=== PATIENT | female | born 1925 | race Caucasian/White ===

== ENCOUNTER 2016-08-11 07:17 | Inpatient (IN) | payer MEDICARE ==
[~2016-08-11] VITALS: Ht 165.1 cm; Wt 56.2 kg
[2016-08-11] VITALS (29 sets, daily range): BP systolic 76–181; BP diastolic 45–94; PULSE 16–112; RESP 16–40; TEMP 98.2–98.9; O2SAT 81–100
[~2016-08-11 07:17] MED LIST: ALEN35TA24 OR; ATOR20TA42 PO; CALC-187 PO; ERGO50000 PO; HYDR7.5T32 PO; IBUP-232 PO; LEVAQUIN; PRIL20CA PO; TAB-TAB PO; TAPA10TA2 PO
[2016-08-11] MEDS ORDERED: PROPOFOL 1000 MG/100 ML INJ 100 ML ONE (07:20)
[2016-08-11] MEDS ORDERED: ETOMIDATE 40 MG/20 ML VIAL ONE (07:20)
[2016-08-11] MEDS ORDERED: MIDAZOLAM HCL 2 MG/2 ML VIAL IV PUSH ONE (07:45)
[2016-08-11] MEDS ORDERED: ETOMIDATE 20 MG/10 ML VIAL IV PUSH ONE ×2 (07:45→08:00)
[2016-08-11] MEDS ORDERED: SUCCINYLCHOLINE CHLORIDE 200 MG/10 ML VIAL IV PUSH ONE (07:45)
[2016-08-11 07:52] LABS: AUTOMATED NEUTROPHIL # 12.9 TH/MM3 (1.8-7.7); BASOPHIL # 0.1 TH/MM3 (0-0.2); BASOPHIL % 0.6 % (0.0-2.0); EOSINOPHIL # 0.4 TH/MM3 (0-0.4); EOSINOPHIL % 2.3 % (0.0-4.0); HEMATOCRIT 44.9 % (35.0-46.0); HEMO FLAGS DIFF FINAL; LYMPH % 24.2 % (9.0-44.0); LYMPHOCYTE # 4.6 TH/MM3 (1.0-4.8); MEAN CELL VOLUME 86.2 FL (80.0-100.0); MEAN CORPUSCULAR HEMOGLOBIN 28.4 PG (27.0-34.0); MONO % 4.5 % (0.0-8.0); NEUT % 68.4 % (16.0-70.0); PLATELET COUNT 370 TH/MM3 (150-450); RED BLOOD COUNT 5.21 MIL/MM3 (4.00-5.30); RED CELL DISTRIBUTION WIDTH 14.6 % (11.6-17.2); WHITE BLOOD COUNT 18.8 TH/MM3 (4.0-11.0)
[2016-08-11 07:54] LABS: I-STAT POTASSIUM 4.1 MMOL/L (3.5-4.9)
[2016-08-11] MEDS ORDERED: METHI10 PO (08:00)
[2016-08-11] MEDS ORDERED: PRIL20CA9 PO (08:00)
[2016-08-11] MEDS ORDERED: NORC5TAB PO (08:00)
[2016-08-11] MEDS ORDERED: ERGO1CAP10 PO (08:00)
[2016-08-11] MEDS ORDERED: PIPERACIL-TAZO 4.5 GM PREMIX 100 ML IV ONE (08:00)
[2016-08-11] MEDS ORDERED: ATOR20TA15 PO (08:00)
[2016-08-11] MEDS ORDERED: CALCTAB70 PO (08:00)
[2016-08-11] MEDS ORDERED: FOSA70TA PO (08:00)
[2016-08-11] MEDS ORDERED: ROBA500T PO (08:00)
[2016-08-11] MEDS ORDERED: MULT1TAB84 PO (08:00)
[2016-08-11 08:02] LABS: BACTERIA, URINE MOD /hpf; BLOOD, URINE SMALL (NEG); GLUCOSE,URINE NEG (NEG); HYALINE CAST, URINE 10 /lpf (RARE); KETONE, URINE NEG (NEG); MUCUS URINE FEW /lpf (OCC); NITRITE,URINE NEG (NEG); PH, URINE 6.5 (5.0-8.5); SQUAMOUS EPITHELIAL CELL URINE 15 /hpf (0-5); URINE COLOR YELLOW (YELLW/STRAW)
[2016-08-11 08:03] LABS: COMMENT (UR) CULTURE INDICATED; CULTURE IF INDICATED CULTURE INDICATED
[2016-08-11 08:07] LABS: APTT (PATIENT) 22.6 SEC (24.3-30.1); PROTHROMBIN TIME - PATIENT 10.8 SEC (9.8-11.6)
[2016-08-11] MEDS: SODIUM CHLORIDE 0.9% FLUSH 5 ML FLUSH IVF PRN ×2 (08:08→09:30)
--- NOTE | 2016-08-11 08:11 | PD ---
HPI Chief Complaint: Respiratory Distress Time Seen by Provider: 07:34 Travel History International Travel<30 days: No Contact w/Intl Traveler<30days: No Traveled to known affect area: No History of Present Illness HPI 89-year-old female was brought in by EMS from the [facility] for respiratory distress. Patient was found by the [facility] staff this morning extremely short of breath. EMS upon their arrival put her on BiPAP and 65% oxygen and she was saturating 90%. When patient arrived in the ER she was poorly responsive and struggling to breathe. She was not a good historian by any means. History was mostly obtained through paramedics and from the paperwork sent from [facility]. As per the paramedics patient denied of any chest pain to the [facility] staff. She was given albuterol nebulizer at the sn[facility]. I was told by the paramedics that she was a full code. Patient was saturating in the low 80s on the BiPAP upon arrival. PFSH Past Medical History Narrative Medical List of her past medical history is reviewed from the nursing note. Arthritis: Yes Heart Rhythm Problems: No Cancer: No Cardiovascular Problems: Yes High Cholesterol: Yes Chest Pain: No Congestive Heart Failure: No COPD: Yes Cerebrovascular Accident: No Diabetes: No Diminished Hearing: No Endocrine: Yes Gastrointestinal Disorders: Yes GERD: Yes Genitourinary: No Hiatal Hernia: No Medical other: Yes (FALLS) Musculoskeletal: Yes (OSTEOPOROSIS, CHRONIC L KNEE PAIN, COMPRESSION FRACTURES) Neurologic: Yes Psychiatric: No Reproductive: No Respiratory: Yes Thyroid Disease: Yes Ulcer: No Menopausal: Yes : 2 Para: 2 Past Surgical History Abdominal Surgery: No Cardiac Surgery: No Eye Surgery: Yes (CATARACTS) Genitourinary Surgery: No Gynecologic Surgery: No Oral Surgery: No Thoracic Surgery: No Tonsillectomy: Yes Social History Alcohol Use: No Tobacco Use: Yes (1 PPD) Substance Use: No Allergies-Medications (Allergen,Severity, Reaction): Coded Allergies: No Known Allergies (Verified , 08/11/16) Comments No known drug allergies. Reported Meds & Prescriptions Reported Meds & Active Scripts Active Reported [place] (Hydrocodone-Acetaminophen) 5-325 mg Tab 1 Tab PO Q6HR PRN Vitamin D (Ergocalciferol) 50,000 Unit Cap 50,000 Units PO Q19UNSS Fosamax (Alendronate Sodium) 70 Mg Tab 70 Mg PO Q7D Atorvastatin (Atorvastatin Calcium) 20 Mg Tab 20 Mg PO HS Robaxin (Methocarbamol) 500 Mg Tab 500 Mg PO TID Calcium 600 + D (Calcium Carbonate-Vitamin D) 600-400 Mg-Unit Tab 1 Tab PO BID Multivitamin Adults (Multiple Vitamins W/ Minerals) 1 Tab 1 Tab PO DAILY Methimazole 10 Mg Tab 10 Mg PO DAILY Prilosec (Omeprazole) 20 Mg Cap 20 Mg PO DAILY Narrative Medication List of her home medications reviewed from the nursing note. Review of Systems Except as stated in HPI: all other systems reviewed are Neg Physical Exam Narrative GENERAL: Elderly, frail, poorly responsive, severe respiratory distress in extremis SKIN: Warm and dry. Pale HEAD: Atraumatic. Normocephalic. EYES: Pupils equal and round. No scleral icterus. No injection or drainage. ENT: No nasal bleeding or discharge. Mucous membranes pink and moist. NECK: Trachea midline. No JVD. CARDIOVASCULAR: Regular rate and rhythm. No murmur appreciated. RESPIRATORY: Use of accessory muscles for respiration, course crackles in bilateral lung curtis GASTROINTESTINAL: Abdomen soft, non-tender, nondistended. Hepatic and splenic margins not palpable. MUSCULOSKELETAL: No obvious deformities. No clubbing. No cyanosis. No edema. NEUROLOGICAL: Poorly responsive, eyes closed and nods or shakes her head upon asking questions. GCS of 10 PSYCHIATRIC: Anxious; insight and judgment normal. Data Data Last Documented VS Vital Signs Date Time Temp Pulse Resp B/P Pulse Ox O2 Delivery O2 Flow Rate FiO2 08/11/16 08:13 103 20 126/94 100 Ventilator 100 08/11/16 07:31 98.9 Orders Complete Blood Count With Diff (08/11/16 07:34) Comprehensive Metabolic Panel (08/11/16 07:34) Act Partial Throm Time (Ptt) (08/11/16 07:34) Prothrombin Time / Inr (Pt) (08/11/16 07:34) Magnesium (Mg) (08/11/16 07:34) Ckmb (Isoenzyme) Profile (08/11/16 07:34) Troponin I (08/11/16 07:34) Arterial Blood Gas (Abg) (08/11/16 07:34) Urinalysis - C+S If Indicated (08/11/16 07:34) Blood Culture (08/11/16 07:34) Iv Access Insert/Monitor (08/11/16 07:34) Electrocardiogram (08/11/16 07:34) Ecg Monitoring (08/11/16 07:34) Oximetry (08/11/16 07:34) Oxygen Administration (08/11/16 07:34) Chest, Single Ap (08/11/16 07:34) Sodium Chloride 0.9% Flush (Ns Flush) (08/11/16 07:45) Midazolam Inj (Versed Inj) (08/11/16 07:45) Lactic Acid (08/11/16 07:34) Sodium Chlor 0.9% 1000 Ml Inj (Ns 1000 M (08/11/16 07:34) I-Stat Profile (08/11/16 07:34) Urinary Catheter Insert/Apply (08/11/16 07:34) Ann-Gastric Tube Insert/Mon (08/11/16 07:34) Sputum Culture And Gram Stain (08/11/16 07:38) Succinylcholine Inj (Quelicin Inj) (08/11/16 07:45) Etomidate Inj (Amidate Inj) (08/11/16 07:45) I-Stat Creatinine (08/11/16 07:35) Thyroid Stimulating Hormone (08/11/16 07:55) Type And Screen (08/11/16 07:55) Piperacil-Tazo 4.5 Gm Premix (Zosyn 4.5 (08/11/16 08:00) Etomidate Inj (Amidate Inj) (08/11/16 08:00) Urine Culture (08/11/16 07:30) Admit Order (Ed Use Only) (08/11/16 08:42) Labs Laboratory Tests Test 08/11/16 08/11/16 08/11/16 07:30 07:35 08:25 Urine Color YELLOW Urine Turbidity CLOUDY Urine pH 6.5 Urine Specific [place] 1.016 Urine Protein 30 mg/dL Urine Glucose (UA) NEG mg/dL Urine Ketones NEG mg/dL Urine Occult Blood SMALL Urine Nitrite NEG Urine Bilirubin NEG Urine Urobilinogen LESS THAN 2.0 MG/DL Urine Leukocyte Esterase LARGE Urine RBC 56 /hpf Urine WBC /hpf Urine WBC Clumps MANY Urine Squamous Epithelial 15 /hpf Cells Urine Bacteria MOD /hpf Urine Hyaline Casts 10 /lpf Urine Mucus FEW /lpf Microscopic Urinalysis Comment CULTURE INDICATED Lactic Acid Level 2.1 mmol/L White Blood Count 18.8 TH/MM3 Red Blood Count 5.21 MIL/MM3 Hemoglobin 14.8 GM/DL Bedside Hemoglobin 15.0 G/DL Hematocrit 44.9 % Bedside Hematocrit 44.0 % Mean Corpuscular Volume 86.2 FL Mean Corpuscular Hemoglobin 28.4 PG Mean Corpuscular Hemoglobin 33.0 % Concent Red Cell Distribution Width 14.6 % Platelet Count 370 TH/MM3 Mean Platelet Volume 9.7 FL Neutrophils (%) (Auto) 68.4 % Lymphocytes (%) (Auto) 24.2 % Monocytes (%) (Auto) 4.5 % Eosinophils (%) (Auto) 2.3 % Basophils (%) (Auto) 0.6 % Neutrophils # (Auto) 12.9 TH/MM3 Lymphocytes # (Auto) 4.6 TH/MM3 Monocytes # (Auto) 0.9 TH/MM3 Eosinophils # (Auto) 0.4 TH/MM3 Basophils # (Auto) 0.1 TH/MM3 CBC Comment DIFF FINAL Differential Comment Prothrombin Time 10.8 SEC Prothromb Time International 1.0 RATIO Ratio Activated Partial 22.6 SEC Thromboplast Time Bedside Sodium 141 MMOL/L Sodium Level 142 MEQ/L Bedside Potassium 4.1 MMOL/L Potassium Level 4.1 MEQ/L Bedside Chloride 109 MMOL/L Chloride Level 109 MEQ/L Carbon Dioxide Level 23.5 MEQ/L Anion Gap 10 MEQ/L Bedside Blood Urea Nitrogen 21 MG/DL Blood Urea Nitrogen 17 MG/DL Creatinine 1.05 MG/DL Bedside Creatinine 0.9 MG/DL Estimat Glomerular Filtration 49 ML/MIN Rate Bedside Glucose 214 MG/DL Random Glucose 208 MG/DL Calcium Level 8.4 MG/DL Magnesium Level 2.1 MG/DL Total Bilirubin 1.0 MG/DL Aspartate Amino Transf 19 U/L (AST/SGOT) Alanine Aminotransferase 11 U/L (ALT/SGPT) Alkaline Phosphatase 76 U/L Total Creatine Kinase 92 U/L Troponin I 0.04 NG/ML Total Protein 6.8 GM/DL Albumin 3.4 GM/DL Thyroid Stimulating Hormone 1.250 uIU/ML 3rd Gen Blood Type O POSITIVE Antibody Screen NEGATIVE Blood Bank Comment Blood Gas Puncture Site RT FEMORAL Blood Gas Patient Temperature 98.6 Blood Gas HCO3 21 mmol/L Blood Gas Base Excess -3.8 mmol/L Blood Gas Oxygen Saturation 95 % Arterial Blood pH 7.36 Arterial Blood Partial 37 mmHg Pressure CO2 Arterial Blood Partial 206 mmHG Pressure O2 Arterial Blood Oxygen Content 18.7 Vol % Arterial Blood 2.2 % Carboxyhemoglobin Arterial Blood Methemoglobin 1.9 % Blood Gas Hemoglobin 13.7 G/DL Oxygen Delivery Device VENTILATOR Blood Gas Ventilator Setting AC16/500/5PEEP Blood Gas Inspired Oxygen 100 % MDM Medical Decision Making Medical Screen Exam Complete: Yes Emergency Medical Condition: Yes Medical Record Reviewed: Yes Interpretation(s) Twelve-lead EKG was reviewed by me. Questionable atrial fibrillation, significant baseline motion artifact, tachycardia, left bundle branch block, normal axis, unchanged from old EKG from 2012. Heart rate of 110 bpm. Differential Diagnosis Pulmonary edema, congestive heart failure, pneumonia, aspiration pneumonia Narrative Course 8:08 AM patient required to be intubated upon arrival to improve her oxygenation and ventilation. This was done successfully. Currently her heart rate has come down to the 80s. She has an oral gastric tube and Leong catheter. Portable chest x-ray shows the tubes to be in good position and an infiltrate/atelectasis in the right lower lobe which makes me think that this could be aspiration pneumonia. There was copious amount of tannish colored mucus from the ETT once patient was intubated. Awaiting for blood test result and the blood gas. CBC is back and shows leukocytosis based on which I started her on Zosyn and vancomycin. Patient will require to be admitted in the unit. Critical Care Narrative Aggregate critical care time was 40 minutes. Time to perform other separately billable procedures was not included in the critical care time. My time did not include minutes spent treating any other patients simultaneously or on activities that did not directly contribute to the patient's treatment. The services I provided to this patient were to treat and/or prevent clinically significant deterioration that could result in: Respiratory earlier, sepsis, vent management I provided critical care services requiring my management, as noted below: Chart data review, documentation time, medication orders and management, vital sign assessments/reviewing monitor data, ordering and reviewing lab tests, ordering and interpreting/reviewing x-rays and diagnostic studies, care of the patient and discussion of the patient with the admitting physicians. Procedures Procedure Narrative After the risks and benefits were discussed the following procedure was performed: INTUBATION: The patient was put in optimal position for the procedure. Rapid sequence intubation was initiated by me using 20 milligrams of etomidate IV and 100 milligrams of succinylcholine IV. The patient was intubated with a 7.5 cuffed endotracheal tube. Tube placement was confirmed by visualization of the tube and balloon passing through the cords, capnometry and subsequent chest x-ray. Breath sounds were equal and well aerated bilaterally postintubation. No breath sounds over stomach. Patient tolerated procedure well. CENTRAL VENOUS LINE: The site was prepped with Betadine and sterilely draped. It was infiltrated with 1% lidocaine plain. The deep vein was cannulated using normal Seldinger technique. A triple lumen central line was placed in the right subclavian site and secured with simple interrupted suture. The site was sterilely dressed. The patient tolerated the procedure well. Needed to be detracted since it was crossing the midline and going into the left subclavian. EKG Prior to Arrival: No Diagnosis Primary Impression: Respiratory failure Qualified Code: J96.01 - Acute respiratory failure with hypoxia Additional Impressions: Aspiration pneumonia Qualified Code: J69.0 - Aspiration pneumonia of right lower lobe, unspecified aspiration pneumonia type Sepsis Qualified Code: A41.9 - Sepsis, due to unspecified organism UTI (urinary tract infection) Qualified Code: N39.0 - Urinary tract infection without hematuria, site unspecified Admitting Information Admitting Physician Requests: Valery Burroughs MD Aug 11, 2016 08:11
[2016-08-11 08:22] LABS: I-STAT SODIUM 141 MMOL/L (138-146)
[2016-08-11 08:23] LABS: ALKALINE PHOSPHATASE 76 U/L (45-117); ALT (GPT) 11 U/L (10-53); ANION GAP 10 MEQ/L (5-15); AST (GOT) 19 U/L (15-37); BICARBONATE 23.5 MEQ/L (21.0-32.0); CHLORIDE 109 MEQ/L (98-107); GLOMERULAR FILTRATION RATE 49 ML/MIN (>89); MAGNESIUM 2.1 MG/DL (1.5-2.5); POTASSIUM 4.1 MEQ/L (3.5-5.1); SODIUM (NA) 142 MEQ/L (136-145)
[2016-08-11 08:26] LABS: BLOOD UREA NITROGEN 17 MG/DL (7-18); CREATINE KINASE 92 U/L (26-192)
[2016-08-11 08:29] LABS: BLOOD GAS BASE EXCESS -3.8 mmol/L (-2-2); BLOOD GAS CARBOXYHEMOGLOBIN 2.2 % (0-4); BLOOD GAS HCO3 21 mmol/L (22-26); BLOOD GAS METHEMOGLOBIN 1.9 % (0-2); BLOOD GAS O2 HGB SATURATION 95 % (90-100); BLOOD GAS OXYGEN CONTENT 18.7 Vol % (12.0-20.0); BLOOD GAS PCO2 37 mmHg (38-42); BLOOD GAS PO2 206 mmHG (61-120); BLOOD GAS TOTAL HGB 13.7 G/DL (12.0-16.0); TEMP CORR TO 98.6
[2016-08-11 08:30] LABS: CRITICAL VALUE NO; DRAW SITE RT FEMORAL; FIO2 100 %; NUMBER OF ARTERIAL PUNCTURES 1; OXYGEN DEVICE VENTILATOR; STAT YES; VENT SETTINGS AC16/500/5PEEP
--- NOTE | 2016-08-11 08:31 | RADRPT ---
EXAM DATE/TIME: 08/11/2016 08:01 [facility] COMPARISON: CT ABDOMEN & PELVIS W/O CONTRAST, May 06, 2012, 22:11. INDICATIONS : Short of breath. MEDICAL HISTORY : Diabetes SURGICAL HISTORY : Unobtainable. ENCOUNTER: Initial ACUITY: 1 day PAIN SCORE: Non-responsive. LOCATION: Bilateral chest FINDINGS: Single portable supine view of the chest is reviewed with prior CT. There is an endotracheal tube ove rlying the midline trachea with the tip approximately 2 cm above the level the anu. There is an or ogastric tube identified with the tip extending beyond the imaged portion of the film. The heart size is mildly enlarged. There is retrocardiac opacity and hazy increased density within th e right lung base. There is mild cephalization of pulmonary vasculature. The osseous structures are u nremarkable. CONCLUSION: Lines and tubes appear appropriate. Bibasilar airspace consolidation and likely pleural effusion.. Linae Gacria MD on August 11, 2016 at 8:22 Board Certified Radiologist. This report was verified electronically.
--- NOTE | 2016-08-11 09:25 | HHI.HP ---
HPI Service Critical Care Medicine Primary Care Physician Duane Black, PhD, MD Admission Diagnosis respiratory failure, sepsis, aspiration pneumonia, UTI Diagnosis: Travel History International Travel<30 Days: No Contact w/Intl Traveler <30 Da: No Traveled to Known Affected Are: No History of Present Illness 89-year-old female was brought in by EMS from rehabilitation facility for acute respiratory distress. The patient was placed on BiPAP by EMS personnel, with resultant O2 sat 90%. On arrival to the ED, the patient appeared to have decreased responsiveness and was dyspneic. O2 saturation on BiPAP was in the 80s, the patient was emergently intubated in the ED by Dr. Dougherty. Laboratory and imaging studies were obtained, chest x-ray showed right lower lobe consolidation indicative of possible aspiration. Critical care medicine is consulted for management. [facility] Past Medical History Narrative Medical List of her past medical history is reviewed from the nursing note. Arthritis: Yes Heart Rhythm Problems: No Cancer: No Cardiovascular Problems: Yes High Cholesterol: Yes Chest Pain: No Congestive Heart Failure: No COPD: Yes Cerebrovascular Accident: No Diabetes: No Diminished Hearing: No Endocrine: Yes Gastrointestinal Disorders: Yes GERD: Yes Genitourinary: No Hiatal Hernia: No Medical other: Yes (FALLS) Musculoskeletal: Yes (OSTEOPOROSIS, CHRONIC L KNEE PAIN, COMPRESSION FRACTURES) Neurologic: Yes Psychiatric: No Reproductive: No Respiratory: Yes Thyroid Disease: Yes Ulcer: No Menopausal: Yes : 2 Para: 2 Past Surgical History Abdominal Surgery: No Cardiac Surgery: No Eye Surgery: Yes (CATARACTS) Genitourinary Surgery: No Gynecologic Surgery: No Oral Surgery: No Thoracic Surgery: No Tonsillectomy: Yes Social History Alcohol Use: No Tobacco Use: Yes (1 PPD) Substance Use: No Allergies-Medications (Allergen,Severity, Reaction): Coded Allergies: No Known Allergies (Verified , 08/11/16) Comments No known drug allergies. Reported Meds & Prescriptions Reported Meds & Active Scripts Active Reported [place] (Hydrocodone-Acetaminophen) 5-325 mg Tab 1 Tab PO Q6HR PRN Vitamin D (Ergocalciferol) 50,000 Unit Cap 50,000 Units PO Q84CONZ Fosamax (Alendronate Sodium) 70 Mg Tab 70 Mg PO Q7D Atorvastatin (Atorvastatin Calcium) 20 Mg Tab 20 Mg PO HS Robaxin (Methocarbamol) 500 Mg Tab 500 Mg PO TID Calcium 600 + D (Calcium Carbonate-Vitamin D) 600-400 Mg-Unit Tab 1 Tab PO BID Multivitamin Adults (Multiple Vitamins W/ Minerals) 1 Tab 1 Tab PO DAILY Methimazole 10 Mg Tab 10 Mg PO DAILY Prilosec (Omeprazole) 20 Mg Cap 20 Mg PO DAILY Narrative Medication List of her home medications reviewed from the nursing note. Review of Systems Except as stated in HPI: all other systems reviewed are Neg Physical Exam Vital Signs Vital Signs Date Time Temp Pulse Resp B/P Pulse Ox O2 Delivery O2 Flow Rate FiO2 08/11/16 08:13 103 20 126/94 100 Ventilator 100 08/11/16 08:03 100 22 106/49 96 Ventilator 08/11/16 07:31 98.9 112 18 115/65 100 Ventilator 08/11/16 07:30 95 100 08/11/16 07:28 100 08/11/16 07:24 107 40 181/85 81 08/11/16 07:20 CPAP 08/11/16 07:20 40 08/11/16 07:20 81 CPAP Physical Exam GENERAL: Critically ill-appearing well-nourished ,well-developed elderly female intubated and sedated on propofol infusion SKIN: Warm and dry. HEAD: Atraumatic. Normocephalic. EYES: Pupils equal and round. No scleral icterus. No injection or drainage. ENT: No nasal bleeding or discharge. Mucous membranes pink and moist. NECK: Trachea midline. No JVD. CARDIOVASCULAR: Normal rate, regular rhythm. RESPIRATORY: Clear to auscultation. Breath sounds equal bilaterally. GASTROINTESTINAL: Abdomen soft protuberant, non-tender, nondistended. No guarding. MUSCULOSKELETAL: Extremities without clubbing, cyanosis, or edema. No obvious deformities. NEUROLOGICAL: Sedated, propofol infusion RASS -2. Laboratory Laboratory Tests Test 08/11/16 08/11/16 08/11/16 07:30 07:35 08:25 Urine Color YELLOW Urine Turbidity CLOUDY Urine pH 6.5 Urine Specific [place] 1.016 Urine Protein 30 Urine Glucose (UA) NEG Urine Ketones NEG Urine Occult Blood SMALL Urine Nitrite NEG Urine Bilirubin NEG Urine Urobilinogen LESS THAN 2.0 Urine Leukocyte Esterase LARGE Urine RBC 56 Urine WBC Urine WBC Clumps MANY Urine Squamous Epithelial 15 Cells Urine Bacteria MOD Urine Hyaline Casts 10 Urine Mucus FEW Microscopic Urinalysis Comment CULTURE INDICATED Lactic Acid Level 2.1 White Blood Count 18.8 Red Blood Count 5.21 Hemoglobin 14.8 Bedside Hemoglobin 15.0 Hematocrit 44.9 Bedside Hematocrit 44.0 Mean Corpuscular Volume 86.2 Mean Corpuscular Hemoglobin 28.4 Mean Corpuscular Hemoglobin 33.0 Concent Red Cell Distribution Width 14.6 Platelet Count 370 Mean Platelet Volume 9.7 Neutrophils (%) (Auto) 68.4 Lymphocytes (%) (Auto) 24.2 Monocytes (%) (Auto) 4.5 Eosinophils (%) (Auto) 2.3 Basophils (%) (Auto) 0.6 Neutrophils # (Auto) 12.9 Lymphocytes # (Auto) 4.6 Monocytes # (Auto) 0.9 Eosinophils # (Auto) 0.4 Basophils # (Auto) 0.1 CBC Comment DIFF FINAL Differential Comment Prothrombin Time 10.8 Prothromb Time International 1.0 Ratio Activated Partial 22.6 Thromboplast Time Sodium Level 142 Bedside Potassium 4.1 Potassium Level 4.1 Bedside Chloride 109 Chloride Level 109 Carbon Dioxide Level 23.5 Anion Gap 10 Bedside Blood Urea Nitrogen 21 Blood Urea Nitrogen 17 Creatinine 1.05 Bedside Creatinine 0.9 Estimat Glomerular Filtration 49 Rate Bedside Glucose 214 Random Glucose 208 Calcium Level 8.4 Magnesium Level 2.1 Total Bilirubin 1.0 Aspartate Amino Transf 19 (AST/SGOT) Alanine Aminotransferase 11 (ALT/SGPT) Alkaline Phosphatase 76 Total Creatine Kinase 92 Troponin I 0.04 Total Protein 6.8 Albumin 3.4 Thyroid Stimulating Hormone 1.250 3rd Gen Blood Type O POSITIVE Antibody Screen NEGATIVE Blood Bank Comment Blood Gas Puncture Site RT FEMORAL Blood Gas Patient Temperature 98.6 Blood Gas HCO3 21 Blood Gas Base Excess -3.8 Blood Gas Oxygen Saturation 95 Arterial Blood pH 7.36 Arterial Blood Partial 37 Pressure CO2 Arterial Blood Partial 206 Pressure O2 Arterial Blood Oxygen Content 18.7 Arterial Blood 2.2 Carboxyhemoglobin Arterial Blood Methemoglobin 1.9 Blood Gas Hemoglobin 13.7 Oxygen Delivery Device VENTILATOR Blood Gas Ventilator Setting AC16/500/5PEEP Blood Gas Inspired Oxygen 100 Date/Time Procedure Status Source Growth 08/11/16 07:40 Aerobic Blood Culture Received Blood Peripheral Pending 08/11/16 07:40 Anaerobic Blood Culture Received Blood Peripheral Pending 08/11/16 07:30 Urine Culture Received Urine Clean Catch Pending Result Diagram: 08/11/1635 08/11/16 0735 Imaging Last Impressions Chest X-Ray 08/11/16 0734 Signed Impressions: Service Date/Time: Thursday, August 11, 2016 08:01 - CONCLUSION: Lines and tubes appear appropriate. Bibasilar airspace consolidation and likely pleural effusion.. Liane Garcia MD Septic Shock Reassessment Heart: Regular rate and rhythm Lungs: Clear Skin: Warm Peripheral Pulses: Bounding Right Radial Bounding Left Radial Bounding Right Dorsalis Pedis Bounding Left Dorsalis Pedis Capillary Refill: Brisk Assessment and Plan Assessment and Plan This is a 89 year old female residing temporarily in a rehabilitation facility secondary to a right wrist injury, that presented acute hypoxic respiratory failure requiring intubation.. Chest x-ray suggestive of possible aspiration. The patient was noted to have an elevation in WBC and slight increase in lactate , and possible UTI. The patient is critically ill with the guarded prognosis. Problem list: Acute hypoxic respiratory failure Aspiration pneumonia UTI Neurologic: -GCS 15, prior to intubation -Maintain RASS -2 -Fentanyl infusion for sedation -Sedation holiday per ICU protocol Respiratory: Acute hypoxic respiratory failure Pleural effusion -Emergently intubated. Maintain O2 sats greater than 92% -Mechanical ventilation 16/500/5/0.75, wean FiO2 -DuoNeb scheduled every 6 hours, and every 2 hours when necessary -Chest x-ray08/11-opacity right lung base, pleural effusion Cardiovascular: Hypercholesterolemia -No acute issues -Maintain MAP > 65 mmHg -Normotensive,SBP 120's-130's -Continue atorvastatin Renal: Renal insufficiency -Creatinine 1.05, monitor BMP -Insert Leong -- Strict I/Os FEN/GI: GERD -Bolused 1 L normal saline IV fluids in ED -IV fluids 0.9 normal saline at 42 cc/hour -Place OGT - Continue Multivitamin -Zofran for nausea -Protonix GI prophylaxis Heme/ID: Possible UTI Aspiration pneumonia -Obtain blood urine and sputum cultures -Begin empiric antibiotics Zosyn, azithromycin, Flagyl -UA-moderate bacteria, large leukocyte esterase -Lactate 2.1 Endocrine: Hyperthyroidism Hyperglycemia -Patient home med Methimazole, will continue -Initial glucose 214, blood glucose monitoring every 6 hours per ICU protocol -TSH level 1.250 -- SSI -low-dose regimen MSK: Osteoporosis Right wrist fracture -Patient is status post right wrist fracture 07/29/16, and was placed in rehabilitation facility -PT evaluation and treat-functional maintenance -Continue calcium/vitamin D home med Prophylaxis: GI Prophylaxis Protonix 40 mg/day DVT Prophylaxis -- SCDs Heparin SQ BID Lines: Peripheral IV x 2. Central line if indicated Dispo: This patient remains critically ill with one or more organ systems which are or may become a threat to life. I have spent in excess of 54 minutes discontinuously in the care and management of this patient. This time is exclusive of procedures, and includes, but is not limited to, evaluation of the patient, review of the medical record, discussions with family, consultants, nursing staff, or respiratory therapy, and documentation in the medical record. Code Status Full code Discussed Condition With Daughter and ED RN at bedside Karla Tejeda MD Aug 11, 2016 09:25
[2016-08-11] MEDS ORDERED: POTASSIUM PHOSPHATE MONOBASIC 500 MG TAB PO/TUBE PRN (09:30)
[2016-08-11] MEDS ORDERED: MAGNESIUM SULFATE INJ 2 GM in SODIUM CHLORIDE 0.9% INJ 96 ML IV PRN (09:30)
[2016-08-11] MEDS ORDERED: CHLORHEXIDINE GLUCONATE 2 % 1 PACK (2 CLOTHS) TOP PRN (09:30)
[2016-08-11] MEDS ORDERED: SENNOSIDES 8.6 MG TAB PO PRN (09:30)
[2016-08-11] MEDS ORDERED: POTASSIUM CHLOR 40 MEQ PREMIX 100 ML IV PRN (09:30)
[2016-08-11] MEDS ORDERED: GLUCAGON 1 MG/ML VIAL OTHER PRN (09:30)
[2016-08-11] MEDS ORDERED: MAGNESIUM OXIDE 400 MG TAB PO PRN (09:30)
[2016-08-11] MEDS ORDERED: BISACODYL 10 MG SUPP RECTAL PRN (09:30)
[2016-08-11] MEDS ORDERED: ACETAMINOPHEN 325 MG TAB PO PRN (09:30)
[2016-08-11] MEDS ORDERED: MAGNESIUM SULFATE INJ 4 GM in SODIUM CHLORIDE 0.9% INJ 92 ML IV PRN (09:30)
[2016-08-11] MEDS ORDERED: POTASSIUM PHOSPHATE INJ 30 MMOL in SODIUM CHLOR 0.9% 250 ML INJ 250 ML IV PRN (09:30)
[2016-08-11] MEDS ORDERED: POTASSIUM CHLOR 20 MEQ PREMIX 100 ML IV PRN ×2 (09:30)
[2016-08-11] MEDS ORDERED: DEXTROSE 50% IN WATER 50 ML VIAL(D50) IV PUSH PRN (09:30)
[2016-08-11] MEDS ORDERED: fentaNYL DRIP 250 ML IV SCH (09:30)
[2016-08-11] MEDS ORDERED: POTASSIUM CL 40 MEQ/30 ML LIQ UDC PO/TUBE PRN ×2 (09:30)
[2016-08-11] MEDS ORDERED: RESP: ALBUTEROL 2.5 MG/IPRATROPIUM 0.5 MG NEB (PRN) INH (09:30)
[2016-08-11] MEDS ORDERED: ONDANSETRON HCL 4 MG/2 ML VIAL IV PRN (09:30)
[2016-08-11] MEDS: SODIUM CHLOR 0.9% 1000 ML INJ 1,000 ML IV SCH ×3 (09:30→17:34)
[2016-08-11] MEDS ORDERED: POTASSIUM PHOSPHATE MONOBASIC 500 MG TAB PO PRN (09:30)
[2016-08-11] MEDS ORDERED: SODIUM PHOSPHATE INJ 30 MMOL in SODIUM CHLOR 0.9% 250 ML INJ 240 ML IV PRN (09:30)
[2016-08-11] MEDS ORDERED: MISCELLANEOUS NURSING INFORMATION XX SCH (09:30)
[2016-08-11] MEDS ORDERED: PIPERACIL-TAZO 4.5 GM PREMIX 100 ML IV SCH (11:00)
[2016-08-11] MEDS: metroNIDAZOLE 500 MG INJ 100 ML IV SCH ×2 (11:10→17:39)
[2016-08-11] MEDS: INSULIN ASPART SUPPLEMENTAL SCALE SQ SCH ×3 (11:13→21:00)
[2016-08-11] MEDS: RESP: ALBUTEROL 2.5 MG/IPRATROPIUM 0.5 MG NEB (SCH) INH ×3 (11:14→20:59)
[2016-08-11] MEDS ORDERED: TERBUTALINE INJ 1 MG/ML AMP SQ PRN (11:45)
--- NOTE | 2016-08-11 12:36 | RADRPT ---
EXAM DATE/TIME: 08/11/2016 12:09 [facility] COMPARISON: CHEST SINGLE AP, May 06, 2012, 19:23. CHEST SINGLE AP, August 11, 2016, 8:01. INDICATIONS: Unresponsive, Right side central line placement. MEDICAL HISTORY: Unresponsive SURGICAL HISTORY: Unresponsive ENCOUNTER: Initial ACUITY: 1 day PAIN SCORE: Non-responsive. LOCATION: Bilateral chest FINDINGS: The endotracheal tube has its tip 3 cm above the anu. The nasogastric tube has its tip below the diaphragm. A right subclavian central line crosses midline and has its tip in the left subclavian ve in. There is no pneumothorax. The heart is mildly prominent. Bilateral pulmonary infiltrates are w orse in appearance compared to the previous examination consistent with worsening pulmonary vascular congestion versus pneumonia. Clinical correlation is recommended. Degenerative changes are noted th roughout the thoracic spine. There is a sclerotic focus within the right humeral head which is stabl e and likely benign. CONCLUSION: 1. Right subclavian central line crosses midline and has its tip in the left subclavian vein. 2. Worsening bilateral pulmonary infiltrates consistent with worsening pulmonary edema versus pneumo gab. 3. Mild cardiomegaly. 4. No pneumothorax. 5. Degenerative changes throughout the thoracic spine. Lito Babb MD on August 11, 2016 at 12:26 Board Certified Radiologist. This report was verified electronically.
[2016-08-11] MEDS ORDERED: PHENYLEPHRINE INJ 40 MG in DEXTROSE 5% IN WATE 500 ML INJ 496 ML IV SCH ×2 (12:45)
[2016-08-11] MEDS: PROPOFOL 1000 MG/100 ML INJ 100 ML IV SCH ×2 (12:48→21:09)
--- NOTE | 2016-08-11 12:53 | RADRPT ---
EXAM DATE/TIME: 08/11/2016 12:31 [facility] COMPARISON: CHEST SINGLE AP, August 11, 2016, 8:01. CHEST SINGLE AP, May 06, 2012, 19:23. CHEST SINGLE AP, August 11, 2016, 12:09. INDICATIONS : Reposition right side centreal line. MEDICAL HISTORY : Unresponsive SURGICAL HISTORY : Unresponsive ENCOUNTER: Subsequent ACUITY: 1 day PAIN SCORE: Non-responsive. LOCATION: Right chest FINDINGS: There is a right-sided central line with the tip crossing midline and extending superiorly to the lef t. Recommend retraction approximately 5 cm. Endotracheal tube seen in the midline approximately 4 cm above the level of the anu. Gastric tube seen extending beyond the imaged portion of the exam. Heart size appears mildly enlarged. There is hazy increased opacity of the lungs bilaterally concerni ng for atelectasis versus possible pleural effusion. CONCLUSION: Limited central line which is seen to cross midline and extending to the left angled superiorly. Esau mmend retraction by approximately 5 cm. The ventricular tube appears appropriately positioned. Bilate ral atelectasis versus small pleural effusions.. Liane Garcia MD on August 11, 2016 at 12:49 Board Certified Radiologist. This report was verified electronically.
--- NOTE | 2016-08-11 14:08 | EKG ---
Date Performed: 08/11/2016 Time Performed: 07:46:40 PTAGE: 89 years EKG: SINUS TACHYCARDIA WITH OCCASIONAL SUPRAVENTRICULAR PREMATURE COMPLEXES LEFT BUNDLE BRANCH B LOCK ABNORMAL ECG PREVIOUS TRACING : 08/11/2016 07.46 Since previous tracing, no significant change noted DOCTOR: Lawson Chowdhury Interpretating Date/Time 08/11/2016 14:00:28
[2016-08-11] MEDS: AZITHROMYCIN INJ 500 MG in SODIUM CHLOR 0.9% 250 ML INJ 250 ML IV SCH (14:15)
[2016-08-11] MEDS: HEPARIN SODIUM - SQ 10,000 UNITS/ML VIAL SQ SCH ×2 (14:15→23:15)
[2016-08-11] MEDS: DOCUSATE SODIUM 100 MG/10 ML UDC G-TUBE SCH ×2 (15:06→21:10)
[2016-08-11] MEDS: ARTIFICIAL TEARS OPTH SOLN 15 ML BTL EACH EYE SCH ×2 (15:07→17:40)
[2016-08-11] MEDS: PIPERACIL-TAZO 3.375 GM PREMIX 50 ML IV SCH ×2 (15:36→21:09)
[2016-08-11] MEDS: CHLORHEXIDINE 0.12% (ORAL KIT) 15 ML CUP MT SCH (21:10)
[2016-08-11] MEDS: ATORVASTATIN 20 MG TAB PO SCH (21:10)
[2016-08-11] MEDS: CALCIUM/VITAMIN D 250 MG/125 U TAB PO SCH (21:10)
[2016-08-11] MEDS: SODIUM CHLORIDE 0.9% FLUSH 5 ML FLUSH IV FLUSH SCH (21:10)
[2016-08-12] VITALS (21 sets, daily range): BP systolic 91–129; BP diastolic 50–60; PULSE 65–99; RESP 16–17; TEMP 97.6–99.4; O2SAT 98–100
[2016-08-12] MEDS: metroNIDAZOLE 500 MG INJ 100 ML IV SCH ×3 (01:27→17:07)
[2016-08-12] MEDS: CHLORHEXIDINE GLUCONATE 2 % 1 PACK (2 CLOTHS) TOP SCH (03:01)
[2016-08-12] MEDS: PIPERACIL-TAZO 3.375 GM PREMIX 50 ML IV SCH ×4 (03:01→19:55)
[2016-08-12] MEDS: RESP: ALBUTEROL 2.5 MG/IPRATROPIUM 0.5 MG NEB (SCH) INH ×4 (03:06→20:04)
[2016-08-12 04:32] LABS: AUTOMATED NEUTROPHIL # 11.5 TH/MM3 (1.8-7.7); BASOPHIL % 0.3 % (0.0-2.0); EOSINOPHIL # 0.1 TH/MM3 (0-0.4); EOSINOPHIL % 0.5 % (0.0-4.0); HEMATOCRIT 34.7 % (35.0-46.0); HEMO FLAGS DIFF FINAL; LYMPHOCYTE # 1.1 TH/MM3 (1.0-4.8); MEAN CORPUSCULAR HEMOGLOBIN 27.6 PG (27.0-34.0); MEAN CORPUSCULAR HGB CONC 32.8 % (32.0-36.0); MONO % 6.4 % (0.0-8.0); NEUT % 84.8 % (16.0-70.0); PLATELET COUNT 250 TH/MM3 (150-450); RED BLOOD COUNT 4.13 MIL/MM3 (4.00-5.30); RED CELL DISTRIBUTION WIDTH 14.6 % (11.6-17.2); WHITE BLOOD COUNT 13.5 TH/MM3 (4.0-11.0)
[2016-08-12 05:11] LABS: BICARBONATE 24.1 MEQ/L (21.0-32.0); MAGNESIUM 2.1 MG/DL (1.5-2.5); POTASSIUM 3.4 MEQ/L (3.5-5.1)
--- NOTE | 2016-08-12 05:55 | RADRPT ---
EXAM DATE/TIME: 08/12/2016 04:37 [facility] COMPARISON: CHEST SINGLE AP, August 11, 2016, 12:31. INDICATIONS : Shortness of breath. MEDICAL HISTORY : Diabetes SURGICAL HISTORY : None. ENCOUNTER: Subsequent ACUITY: 2 days PAIN SCORE: Non-responsive. LOCATION: Bilateral chest FINDINGS: A single view of the chest demonstrates bibasilar consolidation. Probable small pleural effusions gre ater on the left. Upper lobes are better aerated. Heart mildly enlarged. Endotracheal tube 2.8 cm abo ve the anu. Right subclavian central line again crosses midline with tip likely in the innominate vein. Nasogastric tube unchanged. The cardiomediastinal contours are unremarkable. Osseous structure s are intact. Calcification right humeral head unchanged. CONCLUSION: 1. Bibasilar consolidation greater in the left lower lobe. Probable small pleural effusions greater l eft. 2. Upper lobes are better aerated on current study. 3. Right subclavian central line with tip likely in the innominate vein. Tay Lawrence MD on August 12, 2016 at 5:51 Board Certified Radiologist. This report was verified electronically.
[2016-08-12] MEDS: PANTOPRAZOLE SODIUM 40 MG VIAL IV SCH (08:28)
[2016-08-12] MEDS: SODIUM CHLORIDE 0.9% FLUSH 5 ML FLUSH IV FLUSH SCH ×2 (08:28→19:58)
[2016-08-12] MEDS: MULTIVITAMINS/MINERALS THERAPEUTIC TAB PO SCH (08:28)
[2016-08-12] MEDS: CHLORHEXIDINE 0.12% (ORAL KIT) 15 ML CUP MT SCH ×2 (08:28→19:55)
[2016-08-12] MEDS: ARTIFICIAL TEARS OPTH SOLN 15 ML BTL EACH EYE SCH ×3 (08:28→17:07)
[2016-08-12] MEDS: CALCIUM/VITAMIN D 250 MG/125 U TAB PO SCH ×2 (08:28→19:56)
[2016-08-12] MEDS: METHIMAZOLE 10 MG TAB PO SCH (08:31)
[2016-08-12] MEDS ORDERED: FUROSEMIDE 20 MG/2 ML VIAL IV PUSH ONE (08:45)
[2016-08-12] MEDS: AZITHROMYCIN INJ 500 MG in SODIUM CHLOR 0.9% 250 ML INJ 250 ML IV SCH (09:06)
[2016-08-12] MEDS: DOCUSATE SODIUM 100 MG/10 ML UDC G-TUBE SCH ×2 (09:06→19:56)
[2016-08-12] MEDS: PROPOFOL 1000 MG/100 ML INJ 100 ML IV SCH ×3 (09:43→22:04)
--- NOTE | 2016-08-12 09:56 | HHI.CCPN ---
Subjective Remarks/Hospital Course 89-year-old female was brought in by EMS from rehabilitation facility for acute respiratory distress. The patient was placed on BiPAP by EMS personnel, with resultant O2 sat 90%. On arrival to the ED, the patient appeared to have decreased responsiveness and was dyspneic. O2 saturation on BiPAP was in the 80s, the patient was emergently intubated in the ED by Dr. Dougherty. Laboratory and imaging studies were obtained, chest x-ray showed right lower lobe consolidation indicative of possible aspiration. Critical care medicine is consulted for management. 08/12-T max 98.3. No acute issues overnight. The patient was weaned off phenylephrine yesterday afternoon. Patient continues on antibiotics, leukocytosis resolving. Sputum cultures noted gram-positive cocci and gram- positive rods. Patient will begin CPAP trials today, Objective Vital Signs Date Time Temp Pulse Resp B/P Pulse Ox O2 Delivery O2 Flow Rate FiO2 08/12/16 08:00 40 08/12/16 08:00 98.8 73 16 129/60 100 08/11/16 15:14 Ventilator Intake and Output 08/11/16 08/11/16 08/12/16 08:00 16:00 00:00 Intake Total 477 ml Output Total 300 ml 250 ml Balance -300 ml 227 ml Result Diagram: 08/12/16 0405 08/12/16 0405 Imaging Last Impressions Chest X-Ray 08/12/16 0600 Signed Impressions: Service Date/Time: Friday, August 12, 2016 04:37 - CONCLUSION: 1. Bibasilar consolidation greater in the left lower lobe. Probable small pleural effusions greater left. 2. Upper lobes are better aerated on current study. 3. Right subclavian central line with tip likely in the innominate vein. Tay Lawrence MD Last Impressions Chest X-Ray 08/11/16 0734 Signed Impressions: Service Date/Time: Thursday, August 11, 2016 08:01 - CONCLUSION: Lines and tubes appear appropriate. Bibasilar airspace consolidation and likely pleural effusion.. Liane Garcia MD Objective Remarks GENERAL: Critically ill-appearing well-nourished ,well-developed elderly female intubated and sedated on propofol infusion SKIN: Warm and dry. HEAD: Atraumatic. Normocephalic. EYES: Pupils equal and round. No scleral icterus. No injection or drainage. ENT: No nasal bleeding or discharge. Mucous membranes pink and moist. NECK: Trachea midline. No JVD. CARDIOVASCULAR: Normal rate, regular rhythm. RESPIRATORY: Clear to auscultation. Breath sounds equal bilaterally. GASTROINTESTINAL: Abdomen soft protuberant, non-tender, nondistended. No guarding. MUSCULOSKELETAL: Extremities without clubbing, cyanosis, or edema. No obvious deformities. Right wrist in splint.,. NEUROLOGICAL: Sedated, propofol infusion, GCS 11T, RASS -2. Urinary Catheter: Yes Leong insert reason: Measure Accurate Output Date of Insertion: Aug 11, 2016 Vascular Central Line Catheter: Yes Date of Insertion: Aug 11, 2016 Side: Right Location: Subclavian Reason for Continuation CVP monitoring, vasoactive medication administration. A/P Assessment and Plan This is a 89 year old female residing temporarily in a rehabilitation facility secondary to a right wrist injury, that presented acute hypoxic respiratory failure requiring intubation.. Chest x-ray suggestive of possible aspiration. The patient was noted to have an elevation in WBC and slight increase in lactate , and possible UTI. The patient is critically ill with the guarded prognosis. Problem list: Acute hypoxic respiratory failure Aspiration pneumonia UTI Neurologic: -GCS 11T, sedation for ventilator synchrony, propofol and fentanyl infusion -Maintain RASS -2 -Sedation holiday per ICU protocol Respiratory: Acute hypoxic respiratory failure Pleural effusion - Maintain O2 sats greater than 92% -Mechanical ventilation 16/500/5/0.40, wean FiO2 -DuoNeb scheduled every 6 hours, and every 2 hours when necessary -CPAP trials today -Chest x-ray08/11-opacity right lung base, pleural effusion -Lasix 40 mg 1 dose Cardiovascular: Hypercholesterolemia Hypotension-resolved -No acute issues, phenylephrine discontinued upon admission to [facility] 08/11 -Maintain MAP > 65 mmHg -Normotensive,SBP 120's-130's -Continue atorvastatin Renal: Renal insufficiency-resolved -Creatinine 0.08, monitor BMP -Leong -- Strict I/Os FEN/GI: GERD Hypokalemia -IV fluids 0.9 normal saline at 42 cc/hour -Place OGT - Continue Multivitamin -Zofran for nausea -Protonix GI prophylaxis -Electrolyte replacement per ICU protocol Heme/ID: Possible UTI Aspiration pneumonia -08/11 blood culture- NGTD 08/11- urine culture- NGTD 08/11- sputum [id number] cocci in pairs, rare pleomorphic gram- positive rods, awaiting speciation -Continue empiric antibiotics Zosyn, azithromycin, Flagyl (day 2) -UA-moderate bacteria, large leukocyte esterase Endocrine: Hyperthyroidism Hyperglycemia -Patient home med Methimazole, will continue -Initial glucose 214, blood glucose monitoring every 6 hours per ICU protocol -TSH level 1.250 -- SSI -low-dose regimen MSK: Osteoporosis Right wrist fracture -Patient is status post right wrist fracture 07/29/16, and was placed in rehabilitation facility -PT evaluation and treat-functional maintenance -Continue calcium/vitamin D home med Prophylaxis: GI Prophylaxis Protonix 40 mg/day DVT Prophylaxis -- SCDs Heparin SQ BID Lines: Peripheral IV x 2. Central line if indicated Dispo: I telephoned Clarissa Mcneal (daughter) and provided her with an update , regarding patient's clinical status. This patient remains critically ill with one or more organ systems which are or may become a threat to life. I have spent in excess of 43 minutes discontinuously in the care and management of this patient. This time is exclusive of procedures, and includes, but is not limited to, evaluation of the patient, review of the medical record, discussions with family, consultants, nursing staff, or respiratory therapy, and documentation in the medical record. Physician Karla Perez MD Aug 12, 2016 09:56
[2016-08-12] MEDS: POTASSIUM CHLOR 40 MEQ PREMIX 100 ML IV PRN ×2 (09:57→15:40)
[2016-08-12] MEDS ORDERED: FUROSEMIDE 40 MG/4 ML VIAL IV PUSH ONE (10:00)
[2016-08-12] MEDS: HEPARIN SODIUM - SQ 10,000 UNITS/ML VIAL SQ SCH ×2 (10:31→22:04)
[2016-08-12] MEDS: INSULIN ASPART SUPPLEMENTAL SCALE SQ SCH ×3 (10:31→21:00)
[2016-08-12] MEDS: SODIUM CHLOR 0.9% 1000 ML INJ 1,000 ML IV SCH (11:06)
[2016-08-12] MEDS: ATORVASTATIN 20 MG TAB PO SCH (19:55)
[2016-08-13] VITALS (20 sets, daily range): BP systolic 96–136; BP diastolic 50–79; PULSE 70–105; RESP 16–28; TEMP 98.1–99.1; O2SAT 92–100
[2016-08-13] MEDS: metroNIDAZOLE 500 MG INJ 100 ML IV SCH ×4 (01:12→23:33)
[2016-08-13] MEDS: ACETAMINOPHEN/HYDROcodone 325 MG/5 MG TAB OG PRN ×2 (02:09→12:19)
[2016-08-13] MEDS: CHLORHEXIDINE GLUCONATE 2 % 1 PACK (2 CLOTHS) TOP SCH ×2 (02:10→21:53)
[2016-08-13] MEDS: PIPERACIL-TAZO 3.375 GM PREMIX 50 ML IV SCH ×4 (02:10→19:44)
[2016-08-13] MEDS: RESP: ALBUTEROL 2.5 MG/IPRATROPIUM 0.5 MG NEB (SCH) INH ×4 (03:30→19:56)
[2016-08-13] MEDS: PROPOFOL 1000 MG/100 ML INJ 100 ML IV SCH (04:08)
[2016-08-13 04:27] LABS: HEMATOCRIT 33.8 % (35.0-46.0); MEAN CELL VOLUME 83.9 FL (80.0-100.0); MEAN CORPUSCULAR HEMOGLOBIN 27.2 PG (27.0-34.0); MEAN CORPUSCULAR HGB CONC 32.5 % (32.0-36.0); PLATELET COUNT 245 TH/MM3 (150-450); RED BLOOD COUNT 4.03 MIL/MM3 (4.00-5.30); RED CELL DISTRIBUTION WIDTH 14.7 % (11.6-17.2); REVIEW FLAG FINAL; WHITE BLOOD COUNT 11.2 TH/MM3 (4.0-11.0)
--- NOTE | 2016-08-13 04:47 | RADRPT ---
EXAM DATE/TIME: 08/13/2016 03:11 [facility] COMPARISON: CHEST SINGLE AP, August 12, 2016, 4:37. INDICATIONS : Shortness of breath, possible pulmonary disease. MEDICAL HISTORY : Diabetes mellitus type II. SURGICAL HISTORY : None. ENCOUNTER: Subsequent ACUITY: 3 days PAIN SCORE: Non-responsive. LOCATION: Bilateral chest FINDINGS: A single view of the chest demonstrates a cardiomegaly bibasilar densities. Endotracheal tube, nasoga stric tube and right subclavian central line are unchanged in position. The cardiomediastinal contour s are unremarkable. Osseous structures are intact. CONCLUSION: 1. Bibasilar consolidation, not significantly changed. 2. Mild cardiomegaly. Tay Lawrence MD on August 13, 2016 at 4:44 Board Certified Radiologist. This report was verified electronically.
[2016-08-13 04:49] LABS: BICARBONATE 25.2 MEQ/L (21.0-32.0); MAGNESIUM 2.2 MG/DL (1.5-2.5); POTASSIUM 3.4 MEQ/L (3.5-5.1)
[2016-08-13 05:45] LABS: BLOOD GAS CARBOXYHEMOGLOBIN 1.2 % (0-4); BLOOD GAS HCO3 21 mmol/L (22-26); BLOOD GAS METHEMOGLOBIN 1.1 % (0-2); BLOOD GAS O2 HGB SATURATION 97 % (90-100); BLOOD GAS OXYGEN CONTENT 15.5 Vol % (12.0-20.0); BLOOD GAS PCO2 27 mmHg (38-42); BLOOD GAS PO2 138 mmHg (61-120); BLOOD GAS TOTAL HGB 11.2 G/DL (12.0-16.0); TEMP CORR TO 98.6
[2016-08-13 05:46] LABS: CRITICAL VALUE NO; FIO2 40 %; OXYGEN DEVICE VENTILATOR; VENT SETTINGS AC/16/500/PEEP5
[2016-08-13 05:47] LABS: DRAW SITE LT BRACHIAL; NUMBER OF ARTERIAL PUNCTURES 1; STAT NO; ULNAR PULSE PRESENT
[2016-08-13] MEDS: INSULIN ASPART SUPPLEMENTAL SCALE SQ SCH ×4 (06:27→19:44)
--- NOTE | 2016-08-13 07:25 | HHI.CCPN ---
Subjective Remarks/Hospital Course 89-year-old female was brought in by EMS from rehabilitation facility for acute respiratory distress. The patient was placed on BiPAP by EMS personnel, with resultant O2 sat 90%. On arrival to the ED, the patient appeared to have decreased responsiveness and was dyspneic. O2 saturation on BiPAP was in the 80s, the patient was emergently intubated in the ED by Dr. Dougherty. Laboratory and imaging studies were obtained, chest x-ray showed right lower lobe consolidation indicative of possible aspiration. Critical care medicine is consulted for management. 08/12-T max 98.3. No acute issues overnight. The patient was weaned off phenylephrine yesterday afternoon. Patient continues on antibiotics, leukocytosis resolving. Sputum cultures noted gram-positive cocci and gram- positive rods. Patient will begin CPAP trials today. 08/13: Tmax 99.3. Last 24 hours the patient was diuresed, 2 L urine output the patient fell CPAP trials. Tube feeds were initiated, the patient is currently at goal. The patient remains GCS 11 T, plans to begin CPAP trials this am. Objective Vital Signs Date Time Temp Pulse Resp B/P Pulse Ox O2 Delivery O2 Flow Rate FiO2 08/13/16 06:45 40 08/13/16 06:00 74 08/13/16 04:03 100 08/13/16 04:00 98.4 16 97/54 08/11/16 15:14 Ventilator Intake and Output 08/12/16 08/12/16 08/13/16 08:00 16:00 00:00 Intake Total 425 ml 939 ml 772 ml Output Total 300 ml 3295 ml 525.0 ml Balance 125 ml -2356 ml 247.0 ml Result Diagram: 08/13/16 0300 08/13/16 0300 Other Results Microbiology Date/Time Procedure Status Source Growth 08/11/16 07:30 Urine Culture - Final Complete Urine Clean Catch No growth. Laboratory Tests Test 08/13/16 05:35 Blood Gas Puncture Site LT BRACHIAL Blood Gas Patient Temperature 98.6 Blood Gas HCO3 21 mmol/L (22-26) Blood Gas Base Excess -2.0 mmol/L (-2-2) Blood Gas Oxygen Saturation 97 % (90-100) Arterial Blood pH 7.50 (7.380-7.420) Arterial Blood Partial 27 mmHg (38-42) Pressure CO2 Arterial Blood Partial 138 mmHg Pressure O2 (61-120) Arterial Blood Oxygen Content 15.5 Vol % (12.0-20.0) Arterial Blood 1.2 % (0-4) Carboxyhemoglobin Arterial Blood Methemoglobin 1.1 % (0-2) Blood Gas Hemoglobin 11.2 G/DL (12.0-16.0) Oxygen Delivery Device VENTILATOR Blood Gas Ventilator Setting AC/16/500/PEEP5 Blood Gas Inspired Oxygen 40 % Imaging Last Impressions Chest X-Ray 08/13/16 06 Signed Impressions: Service Date/Time: August 03:11 - CONCLUSION: 1. Bibasilar consolidation, not significantly changed. 2. Mild cardiomegaly. Tay Lawrence MD Last Impressions Chest X-Ray 08/12/16599 Signed Impressions: Service Date/Time: Friday, August 12, 2016 04:37 - CONCLUSION: 1. Bibasilar consolidation greater in the left lower lobe. Probable small pleural effusions greater left. 2. Upper lobes are better aerated on current study. 3. Right subclavian central line with tip likely in the innominate vein. Tay Lawrence MD Last Impressions Chest X-Ray 08/11/16 0734 Signed Impressions: Service Date/Time: Thursday, August 11, 2016 08:01 - CONCLUSION: Lines and tubes appear appropriate. Bibasilar airspace consolidation and likely pleural effusion.. Liane Garcia MD Objective Remarks GENERAL: Critically ill-appearing well-nourished ,well-developed elderly female intubated on propofol infusion, responsive. SKIN: Warm and dry. HEAD: Atraumatic. Normocephalic. EYES: PERRLA. No scleral icterus. No injection or drainage. ENT: No nasal bleeding or discharge. Mucous membranes pink and moist. NECK: Trachea midline. No JVD. Orotracheally intubated. CARDIOVASCULAR: Normal rate, regular rhythm. RESPIRATORY: Clear to auscultation. Breath sounds equal bilaterally. GASTROINTESTINAL: Abdomen soft protuberant, non-tender, nondistended. No guarding. MUSCULOSKELETAL: Extremities without clubbing, cyanosis, or edema. No obvious deformities. Right wrist in splint. NEUROLOGICAL: Sedated, propofol infusion, GCS 11T, RASS -2. Urinary Catheter: Yes Leong insert reason: Measure Accurate Output Date of Insertion: Aug 11, 2016 Vascular Central Line Catheter: Yes (CVP monitoring and vasoactive medication administration) Date of Insertion: Aug 11, 2016 Side: Right Location: Subclavian A/P Assessment and Plan This is a 89 year old female residing temporarily in a rehabilitation facility secondary to a right wrist injury, that presented acute hypoxic respiratory failure requiring intubation.. Chest x-ray suggestive of possible aspiration. The patient was noted to have an elevation in WBC and slight increase in lactate , and possible UTI. The patient is critically ill with the guarded prognosis. Problem list: Acute hypoxic respiratory failure Aspiration pneumonia UTI Neurologic: Pain-secondary to osteoarthritis bilateral knees -GCS 11T, sedation for ventilator synchrony, propofol infusion, fentanyl discontinued -Maintain RASS -2 -Sedation holiday per ICU protocol -[place] 5/325 initiated every 6 hours when necessary Respiratory: Acute hypoxic respiratory failure Pleural effusion - Maintain O2 sats greater than 92% -Mechanical ventilation 16/500/5/0.40, wean FiO2 -DuoNeb scheduled every 6 hours, and every 2 hours when necessary -CPAP trials to resume today -Chest x-ray08/11-opacity right lung base, pleural effusion -Lasix 08/11- 2 L UOP Cardiovascular: Hypercholesterolemia Hypotension-resolved Mild cardiomegaly -No acute issues, phenylephrine discontinued upon admission to [facility] 08/11 -Maintain MAP > 65 mmHg -Normotensive,[id number]'s -Continue atorvastatin (home med) Renal: Renal insufficiency-resolved -Creatinine 0.09, monitor BMP -Maintain Leong -- Strict I/Os FEN/GI: GERD Hypokalemia Hypophosphatemia -IV fluids 0.9 normal saline at 42 cc/hour-discontinued with initiation goal rate of tube feedings via OGT - Continue Multivitamin -Zofran for nausea -Protonix GI prophylaxis -Electrolyte replacement per ICU protocol(K-Phos replacement this a.m.) Heme/ID: Possible UTI Aspiration pneumonia -WBC 18->13->11 trending down -08/11 blood culture- NGTD 08/11- urine culture- no growth 08/11- sputum cpmfpha-[id number]-[id number] cocci in pairs, rare pleomorphic gram- positive rods, awaiting speciation -Continue empiric antibiotics Zosyn, azithromycin, Flagyl (day 3) Endocrine: Hyperthyroidism Hyperglycemia -Patient home med Methimazole, will continue -Blood glucose monitoring every 6 hours per ICU protocol -TSH level 1.250 -- SSI -low-dose regimen MSK: Osteoporosis Right wrist fracture -Patient is status post right wrist fracture 07/29/16, and was placed in rehabilitation facility -PT evaluation and treat-functional maintenance, continue application of right wrist splint -Continue calcium/vitamin D home med Prophylaxis: GI Prophylaxis Protonix 40 mg/day DVT Prophylaxis -- SCDs Heparin SQ BID Lines: Peripheral IV x 2. Central line RSC per ED Dispo: This patient remains critically ill with one or more organ systems which are or may become a threat to life. I have spent in excess of 39 minutes discontinuously in the care and management of this patient. This time is exclusive of procedures, and includes, but is not limited to, evaluation of the patient, review of the medical record, discussions with family, consultants, nursing staff, or respiratory therapy, and documentation in the medical record. Physician Karla Perez MD Aug 13, 2016 07:25
[2016-08-13] MEDS: CALCIUM/VITAMIN D 250 MG/125 U TAB PO SCH ×2 (08:12→19:44)
[2016-08-13] MEDS: DOCUSATE SODIUM 100 MG/10 ML UDC G-TUBE SCH ×2 (08:12→19:43)
[2016-08-13] MEDS: PANTOPRAZOLE SODIUM 40 MG VIAL IV SCH (08:12)
[2016-08-13] MEDS: AZITHROMYCIN INJ 500 MG in SODIUM CHLOR 0.9% 250 ML INJ 250 ML IV SCH (08:12)
[2016-08-13] MEDS: MULTIVITAMINS/MINERALS THERAPEUTIC TAB PO SCH (08:12)
[2016-08-13] MEDS: METHIMAZOLE 10 MG TAB PO SCH (08:12)
[2016-08-13] MEDS: ARTIFICIAL TEARS OPTH SOLN 15 ML BTL EACH EYE SCH ×3 (08:13→17:14)
[2016-08-13] MEDS: CHLORHEXIDINE 0.12% (ORAL KIT) 15 ML CUP MT SCH ×2 (08:13→19:08)
[2016-08-13] MEDS: SODIUM CHLORIDE 0.9% FLUSH 5 ML FLUSH IV FLUSH SCH ×2 (08:13→19:25)
[2016-08-13] MEDS: HEPARIN SODIUM - SQ 10,000 UNITS/ML VIAL SQ SCH ×2 (11:16→21:52)
[2016-08-13] MEDS ORDERED: DEXMEDETOMIDINE INJ 50 ML IV SCH (12:15)
[2016-08-13 18:44] LABS: POTASSIUM 3.8 MEQ/L (3.5-5.1)
[2016-08-13] MEDS: ATORVASTATIN 20 MG TAB PO SCH (19:44)
[2016-08-14] VITALS (14 sets, daily range): BP systolic 99–134; BP diastolic 51–70; PULSE 83–116; RESP 20–36; TEMP 98.1–98.5; O2SAT 94–98
[2016-08-14] MEDS: PIPERACIL-TAZO 3.375 GM PREMIX 50 ML IV SCH ×4 (01:47→20:36)
[2016-08-14] MEDS: RESP: ALBUTEROL 2.5 MG/IPRATROPIUM 0.5 MG NEB (SCH) INH ×4 (03:53→21:32)
[2016-08-14] MEDS: INSULIN ASPART SUPPLEMENTAL SCALE SQ SCH ×4 (05:02→20:36)
[2016-08-14] MEDS ORDERED: FUROSEMIDE 40 MG/4 ML VIAL ONE (07:33)
[2016-08-14] MEDS ORDERED: MAGNESIUM SULFATE 1 GM PREMIX 100 ML ONE (07:34)
[2016-08-14] MEDS: MAGNESIUM SULFAT 1 GM PREMIX 100 ML x2 bags IV SCH ×2 (07:41→08:49)
[2016-08-14] MEDS: CHLORHEXIDINE 0.12% (ORAL KIT) 15 ML CUP MT SCH ×2 (07:41→20:00)
[2016-08-14] MEDS ORDERED: FUROSEMIDE 100 MG/10 ML VIAL IV PUSH ONE (07:45)
[2016-08-14 07:53] LABS: HEMATOCRIT 37.7 % (35.0-46.0); MEAN CORPUSCULAR HEMOGLOBIN 27.9 PG (27.0-34.0); MEAN CORPUSCULAR HGB CONC 32.4 % (32.0-36.0); PLATELET COUNT 282 TH/MM3 (150-450); RED BLOOD COUNT 4.39 MIL/MM3 (4.00-5.30); REVIEW FLAG FINAL; WHITE BLOOD COUNT 13.7 TH/MM3 (4.0-11.0)
[2016-08-14] MEDS ORDERED: METOPROLOL TARTRATE 5 MG/5 ML VIAL ONE (08:06)
[2016-08-14 08:09] LABS: BICARBONATE 25.1 MEQ/L (21.0-32.0); POTASSIUM 4.3 MEQ/L (3.5-5.1)
[2016-08-14] MEDS ORDERED: METOPROLOL TARTRATE 5 MG/5 ML VIAL IV PUSH ONE (08:15)
--- NOTE | 2016-08-14 08:17 | HHI.CCPN ---
Subjective Remarks/Hospital Course 89-year-old female was brought in by EMS from rehabilitation facility for acute respiratory distress. The patient was placed on BiPAP by EMS personnel, with resultant O2 sat 90%. On arrival to the ED, the patient appeared to have decreased responsiveness and was dyspneic. O2 saturation on BiPAP was in the 80s, the patient was emergently intubated in the ED by Dr. Dougherty. Laboratory and imaging studies were obtained, chest x-ray showed right lower lobe consolidation indicative of possible aspiration. Critical care medicine is consulted for management. 08/12-T max 98.3. No acute issues overnight. The patient was weaned off phenylephrine yesterday afternoon. Patient continues on antibiotics, leukocytosis resolving. Sputum cultures noted gram-positive cocci and gram- positive rods. Patient will begin CPAP trials today. 08/13: Tmax 99.3. Last 24 hours the patient was diuresed, 2 L urine output the patient fell CPAP trials. Tube feeds were initiated, the patient is currently at goal. The patient remains GCS 11 T, plans to begin CPAP trials this am. 08/14: extubated yesterday. reportedly doing well. this AM in significant respiratory distress. net +800cc overnight. significant expiratory wheezing on exam. remains afebrile with downtrending wbc. Objective Vital Signs Date Time Temp Pulse Resp B/P Pulse Ox O2 Delivery O2 Flow Rate FiO2 08/14/16 07:57 98 50 08/14/16 06:00 96 08/14/16 04:00 98.5 22 123/63 08/13/16 19:56 Nasal Cannula 3.00 Intake and Output 08/13/16 08/13/16 08/14/16 08:00 16:00 00:00 Intake Total 814 ml 1170 ml 275 ml Output Total 175.0 ml 200 ml 375 ml Balance 639.0 ml 970 ml -100 ml Result Diagram: 08/14/16 0748 08/13/16 1725 Imaging Last Impressions Chest X-Ray 08/13/16 06 Signed Impressions: Service Date/Time: August 03:11 - CONCLUSION: 1. Bibasilar consolidation, not significantly changed. 2. Mild cardiomegaly. Tay Lawrence MD Last Impressions Chest X-Ray 08/12/16 06 Signed Impressions: Service Date/Time: Friday, August 12, 2016 04:37 - CONCLUSION: 1. Bibasilar consolidation greater in the left lower lobe. Probable small pleural effusions greater left. 2. Upper lobes are better aerated on current study. 3. Right subclavian central line with tip likely in the innominate vein. Tay Lawrence MD Last Impressions Chest X-Ray 08/11/16 0734 Signed Impressions: Service Date/Time: Thursday, August 11, 2016 08:01 - CONCLUSION: Lines and tubes appear appropriate. Bibasilar airspace consolidation and likely pleural effusion.. Liane Garcia MD Objective Remarks GENERAL: Critically ill-appearing elderly female awake and alert, in moderate respiratory distress this AM. SKIN: Warm and dry. HEAD: Atraumatic. Normocephalic. EYES: PERRLA. No scleral icterus. No injection or drainage. ENT: No nasal bleeding or discharge. Mucous membranes pink and moist. NECK: Trachea midline. No JVD. CARDIOVASCULAR: tachycardic rate, regular rhythm. RESPIRATORY: labored. tachypneic. using accessory muscles to breath. significant bilateral expiratory wheezes. currently getting neb treatment. GASTROINTESTINAL: Abdomen soft protuberant, non-tender, nondistended. No guarding. MUSCULOSKELETAL: Extremities without clubbing, cyanosis, or edema. No obvious deformities. Right wrist in splint. NEUROLOGICAL: RASS 0. CAM -. follows commands x 4. Date of Insertion: Aug 11, 2016 Date of Insertion: Aug 11, 2016 Side: Right Location: Subclavian A/P Assessment and Plan This is a 89 year old female residing temporarily in a rehabilitation facility secondary to a right wrist injury, that presented acute hypoxic respiratory failure requiring intubation.. Chest x-ray suggestive of possible aspiration. The patient was noted to have an elevation in WBC and slight increase in lactate , and possible UTI. was clinically improving yesterday, extubated, however now in significant respiratory distress. Although she was improving, this is a set back, and she remains critically ill this morning. we will try to avoid re- intubation, and bridge with BiPAP, but we may have to resort to re-intubation for her recurrent hypoxic respiratory failure and respiratory distress. Problem list: Acute hypoxic respiratory failure Aspiration pneumonia UTI Intravascular Volume overload Neurologic: Pain-secondary to osteoarthritis bilateral knees -tylenol, Lortab 5 prn for pain. -RASS goal 0. Respiratory: Acute hypoxic respiratory failure Pleural effusion - Maintain O2 sats greater than 92% - STAT CXR - Lasix 80mg iv x 1 - BiPAP now. will attempt to stave off re-intubation, but we may have to resort to this if she does not rapidly improve. -DuoNeb scheduled every 6 hours, and every 2 hours when necessary Cardiovascular: Hypercholesterolemia Hypotension-resolved Mild cardiomegaly Sinus tachycardia -No acute issues, phenylephrine discontinued upon admission to [facility] [place] 08/11 -Maintain MAP > 65 mmHg -Normotensive,[id number]'s -Continue atorvastatin (home med) -will give lopressor 5mg iv x 1 now. - magnesium 2gm iv x 1 - tachycardia is likely secondary to respiratory distress. Renal: Renal insufficiency-resolved -Creatinine 0.09, monitor BMP -Maintain Leong -- Strict I/Os --diuresis as above. FEN/GI: GERD Hypokalemia Hypophosphatemia -continue SL ivf. - Continue Multivitamin - continue NPO for now given respiratory distress. -Zofran for nausea -Protonix GI prophylaxis -Electrolyte replacement per ICU protocol Heme/ID: Possible UTI Aspiration pneumonia -WBC 18->13->11 trending down -08/11 blood culture- NGTD 08/11- urine culture- no growth 08/11- sputum culture-heavy growth normal respiratory sarah -Continue empiric antibiotics Zosyn, azithromycin, anticipated stop date 08/17. -d/c Flagyl. Endocrine: Hyperthyroidism Hyperglycemia -Patient home med Methimazole, will continue -Blood glucose monitoring every 6 hours per ICU protocol -TSH level 1.250 -- SSI -low-dose regimen MSK: Osteoporosis Right wrist fracture -Patient is status post right wrist fracture 07/29/16, and was placed in rehabilitation facility -PT evaluation and treat-functional maintenance, continue application of right wrist splint -Continue calcium/vitamin D home med Prophylaxis: GI Prophylaxis Protonix 40 mg/day DVT Prophylaxis -- SCDs Heparin SQ BID Lines: Peripheral IV x 2. Central line RSC per ED Dispo: This patient remains critically ill with one or more organ systems which are or may become a threat to life. I have spent in excess of 33 minutes discontinuously in the care and management of this patient. This time is exclusive of procedures, and includes, but is not limited to, evaluation of the patient, review of the medical record, discussions with family, consultants, nursing staff, or respiratory therapy, and documentation in the medical record. Robby Santos MD Aug 14, 2016 08:17
--- NOTE | 2016-08-14 08:41 | RADRPT ---
EXAM DATE/TIME: 08/14/2016 08:01 [facility] COMPARISON: CHEST SINGLE AP, August 13, 2016, 3:11. INDICATIONS : Short of breath. MEDICAL HISTORY : Diabetes mellitus type II. SURGICAL HISTORY : None. ENCOUNTER: Subsequent ACUITY: 4 - 6 days PAIN SCORE: 0/10 LOCATION: Bilateral chest FINDINGS: Central line is turned on itself in the superior vena cava. Heart remains enlarged with small bilate ral pleural effusions. Pulmonary vascularity is normalizing. CONCLUSION: Improvement as described above. Eloy Hair MD FACR on August 14, 2016 at 8:36 Board Certified Radiologist. This report was verified electronically.
[2016-08-14] MEDS: ARTIFICIAL TEARS OPTH SOLN 15 ML BTL EACH EYE SCH ×3 (09:00→16:22)
[2016-08-14] MEDS: CALCIUM/VITAMIN D 250 MG/125 U TAB PO SCH ×2 (09:00→20:36)
[2016-08-14] MEDS: METHIMAZOLE 10 MG TAB PO SCH (09:00)
[2016-08-14] MEDS: MULTIVITAMINS/MINERALS THERAPEUTIC TAB PO SCH (09:00)
[2016-08-14] MEDS: DOCUSATE SODIUM 100 MG/10 ML UDC G-TUBE SCH ×2 (09:30→21:30)
[2016-08-14] MEDS: AZITHROMYCIN INJ 500 MG in SODIUM CHLOR 0.9% 250 ML INJ 250 ML IV SCH (10:05)
[2016-08-14] MEDS: HEPARIN SODIUM - SQ 10,000 UNITS/ML VIAL SQ SCH ×2 (10:06→23:11)
[2016-08-14] MEDS: SODIUM CHLORIDE 0.9% FLUSH 5 ML FLUSH IV FLUSH SCH ×2 (10:06→20:36)
[2016-08-14] MEDS: PANTOPRAZOLE SODIUM 40 MG VIAL IV SCH (10:06)
[2016-08-14] MEDS: ATORVASTATIN 20 MG TAB PO SCH (20:36)
[2016-08-15] VITALS (14 sets, daily range): BP systolic 111–144; BP diastolic 56–96; PULSE 80–98; RESP 21–25; TEMP 97.7–98.3; O2SAT 96–99
[2016-08-15] MEDS: PIPERACIL-TAZO 3.375 GM PREMIX 50 ML IV SCH ×4 (03:00→20:58)
[2016-08-15] MEDS: RESP: ALBUTEROL 2.5 MG/IPRATROPIUM 0.5 MG NEB (SCH) INH ×2 (03:15→07:32)
[2016-08-15] MEDS: CHLORHEXIDINE GLUCONATE 2 % 1 PACK (2 CLOTHS) TOP SCH (03:30)
[2016-08-15 05:33] LABS: MEAN CELL VOLUME 84.6 FL (80.0-100.0); MEAN CORPUSCULAR HEMOGLOBIN 27.5 PG (27.0-34.0); MEAN CORPUSCULAR HGB CONC 32.5 % (32.0-36.0); PLATELET COUNT 263 TH/MM3 (150-450); RED BLOOD COUNT 4.14 MIL/MM3 (4.00-5.30); REVIEW FLAG FINAL; WHITE BLOOD COUNT 10.3 TH/MM3 (4.0-11.0)
[2016-08-15 05:54] LABS: BICARBONATE 28.6 MEQ/L (21.0-32.0); POTASSIUM 3.5 MEQ/L (3.5-5.1)
[2016-08-15] MEDS: INSULIN ASPART SUPPLEMENTAL SCALE SQ SCH ×4 (07:00→20:59)
[2016-08-15] MEDS: CHLORHEXIDINE 0.12% (ORAL KIT) 15 ML CUP MT SCH ×2 (08:00→20:00)
[2016-08-15] MEDS: MULTIVITAMINS/MINERALS THERAPEUTIC TAB PO SCH (08:21)
[2016-08-15] MEDS: METHIMAZOLE 10 MG TAB PO SCH (08:21)
[2016-08-15] MEDS: DOCUSATE SODIUM 100 MG/10 ML UDC G-TUBE SCH ×2 (08:21→20:59)
[2016-08-15] MEDS: CALCIUM/VITAMIN D 250 MG/125 U TAB PO SCH ×2 (08:21→20:59)
[2016-08-15] MEDS: PANTOPRAZOLE SODIUM 40 MG VIAL IV SCH (08:21)
[2016-08-15] MEDS: SODIUM CHLORIDE 0.9% FLUSH 5 ML FLUSH IV FLUSH SCH ×2 (08:22→20:59)
[2016-08-15] MEDS: SODIUM CHLORIDE 0.9% FLUSH 5 ML FLUSH IV FLUSH PRN (08:22)
[2016-08-15] MEDS: AZITHROMYCIN INJ 500 MG in SODIUM CHLOR 0.9% 250 ML INJ 250 ML IV SCH (08:22)
[2016-08-15] MEDS: SODIUM CHLORIDE 0.9% FLUSH 5 ML FLUSH IVF PRN (08:22)
[2016-08-15] MEDS: ARTIFICIAL TEARS OPTH SOLN 15 ML BTL EACH EYE SCH ×3 (08:23→18:00)
--- NOTE | 2016-08-15 10:05 | HHI.PR ---
Subjective Remarks pt trying to eat modified diet lying in bed. denies sob at rest. Objective Vitals on 4lnc no labored breathing cooperative heart irreg lung good air entry abd s/nt ext no edema right wrist splint. huston cvl Vital Signs Date Time Temp Pulse Resp B/P Pulse Ox O2 Delivery O2 Flow Rate FiO2 08/15/16 07:32 98 Nasal Cannula 4.00 08/15/16 06:00 80 08/15/16 04:00 98 08/15/16 04:00 97.7 98 22 116/59 96 08/15/16 02:00 91 08/15/16 00:00 80 08/15/16 00:00 98.3 80 24 111/56 97 08/14/16 22:00 83 08/14/16 21:32 97 Nasal Cannula 4.00 08/14/16 20:00 106 08/14/16 20:00 98.3 106 28 120/70 98 08/14/16 18:00 85 08/14/16 16:00 103 08/14/16 16:00 98.2 103 20 128/56 96 08/14/16 14:00 85 08/14/16 12:00 98.4 96 20 99/51 97 08/14/16 12:00 96 08/14/16 08/14/16 08/15/16 15:00 23:00 07:00 Intake Total 613 ml 277 ml 91 ml Output Total 2000 ml 525 ml 150 ml Balance -1387 ml -248 ml -59 ml Intake Oral 240 ml 30 ml IV Total 613 ml 37 ml 61 ml Output Urine Total 2000 ml 525 ml 150 ml # Bowel Movements 1 0 0 Result Diagram: 08/15/16 0340 08/15/16 0340 Date of Insertion: Aug 11, 2016 Date of Insertion: Aug 11, 2016 Side: Right Location: Subclavian A/P Problem List: (1) Respiratory failure Status: Acute Plan: Pt presents with respiratory failure requiring intubation and pressor support. History is unclear. she was at a nursing facility due to right wrist fx. But pt can't give clear hx of events leading up to her decline. Speculation that she had aspiration pna due to leukocytosis and basilar infiltrated R>L .But also she has elevated troponins and was diuresed in ICU with improvement in cxr. She has been o broad spectrum abx with zosyn and azithro since 08/11. She is currently on 4L nc. cont to wean will plan for transfer to med/surg. tele d/c betzaida when more stable cont abx for now. check echo and holter for arrhythmia. consider stress testing. speech/swallow following. on modified diet dvt prophylaxis PT Problem Qualifiers (1) Respiratory failure: Qualified Code: J96.01 - Acute respiratory failure with hypoxia Dio Wade MD Aug 15, 2016 10:05
[2016-08-15] MEDS: HEPARIN SODIUM - SQ 10,000 UNITS/ML VIAL SQ SCH (16:03)
--- NOTE | 2016-08-15 17:24 | EC ---
Study Study Date:08/15/2016 STUDY CONCLUSIONS SUMMARY - Procedure narrative: Transthoracic echocardiography. Image quality was suboptimal. The study was technically limited. Scanning was performed from the parasternal, apical, and subcostal acoustic windows. - Left ventricle: The cavity size was normal. Wall thickness was normal. Systolic function was mildly to moderately reduced. The estimated ejection fraction was in the range of 40% to 45%. Diffuse hypokinesis. - Aortic valve: Valve area: 2.2cm^2 (Vmax). - Mitral valve: Mildly calcified, moderately fibrotic, moderately thickened annulus. Mobility was restricted. Transvalvular velocity was increased. The findings are consistent with moderate to severe stenosis. Mild regurgitation. Mean gradient: 11mm Hg (D). Valve area by pressure half-time: 1.53cm^2. - Left atrium: The atrium was moderately dilated. - Tricuspid valve: Moderate-severe regurgitation. - Pulmonary arteries: Systolic pressure was moderately increased. PA peak pressure: 56mm Hg (S). - Pericardium, extracardiac: There was a left pleural effusion. If LV function is below 40, please consider prescribing an ACEI or ARB or document rationale for non-use. PROCEDURE DATA STUDY STATUS: Elective. Procedure: Transthoracic echocardiography. Image quality was suboptimal. The study was technically limited. Scanning was performed from the parasternal, apical, and subcostal acoustic windows. Study completion: The patient tolerated the procedure well. Transthoracic echocardiography. M-mode, complete 2D, complete spectral Doppler, and color Doppler. Height: Height: 64in. Weight: Weight: 136.7lb. Body mass index: BMI: 23.5kg/m^2. Body surface area: BSA: 1.67m^2. Patient status: Inpatient. CARDIAC ANATOMY LEFT VENTRICLE: The cavity size was normal. Wall thickness was normal. Systolic function was mildly to moderately reduced. The estimated ejection fraction was in the range of 40% to 45%. Diffuse hypokinesis. Images were inadequate for LV wall motion assessment. AORTIC VALVE: Poorly visualized. Trileaflet; normal thickness leaflets. Doppler: Transvalvular velocity was within the normal range. There was no stenosis. No regurgitation. Valve area: 2.2cm^2 (Vmax). Indexed valve area: 1.32cm^2/m^2 (Vmax). AORTA: Aortic root: The aortic root was normal in size. MITRAL VALVE: Poorly visualized. Mildly calcified, moderately fibrotic, moderately thickened annulus. Mobility was restricted. Doppler: Transvalvular velocity was increased. The findings are consistent with moderate to severe stenosis. Mild regurgitation. Valve area by pressure half-time: 1.53cm^2. Indexed valve area by pressure half-time: 0.92cm^2/m^2. Mean gradient: 11mm Hg (D). Peak gradient: 19mm Hg (D). LEFT ATRIUM: Poorly visualized. The atrium was moderately dilated. RIGHT VENTRICLE: The cavity size was normal. Wall thickness was normal. PULMONIC VALVE: Doppler: Transvalvular velocity was within the normal range. There was no evidence for stenosis. No regurgitation. TRICUSPID VALVE: Structurally normal valve. Doppler: Transvalvular velocity was within the normal range. Moderate-severe regurgitation. PULMONARY ARTERY: The main pulmonary artery was normal-sized. Systolic pressure was moderately increased. RIGHT ATRIUM: The atrium was normal in size. PERICARDIUM: There was no pericardial effusion. SYSTEMIC VEINS: Inferior vena cava: The vessel was normal in size. Pleura: There was a left pleural effusion. Patient weight: 136.7lb _Ejection fraction:_ 65-75% _Fractional shortening:_ 32% up to 5Kg 5-11.5Kg 11.6-22.9Kg 23-45Kg 45-57Kg Aortic Root 7-13 <17 13-22 17-27 17-27 LA diam 6-13 <23 24-38 33-47 37-40 RVID 10-17 7-15 7-15 7-18 8-17 LVIDd 12-22 <32 24-38 33-47 37-40 LVPW 2-4 3-6 5-7 6-8 7-8 IVS 2-4 3-6 5-7 6-8 7-8 BASIC MEASUREMENTS ADULT NORMAL Left ventricle LV internal dimension, ED, chordal 49.1 mm 43-52 level, PLAX LV internal dimension, ES, chordal *41.4 mm 23-38 level, PLAX Fractional shortening, chordal level, *16 % >29 PLAX LV posterior wall thickness, ED 8.11 mm IVS/LVPW ratio, ED 0.91 <1.3 Ventricular septum Septal thickness, ED 7.42 mm Aortic valve Leaflet separation *12 mm 15-26 BASIC MEASUREMENTS ADULT NORMAL Aortic valve Leaflet separation *12 mm 15-26 Aorta Root diameter, ED 27 mm 20-37 Left atrium Anterior-posterior dimension, ES *46 mm 19-40 Anterior-posterior dimension index, ES *2.75 cm/m^2 <2.2 LA/aortic root ratio 1.7 DOPPLER MEASUREMENTS ADULT NORMAL Main pulmonary artery Pressure, S *56 mm Hg =30 Aortic valve Peak velocity, S 139 cm/s VTI, S 83.9 cm Valve area, Vmax 2.2 cm^2 Valve area index, Vmax 1.32 cm^2/m^2 Mitral valve Peak E-wave velocity 215 cm/s Peak A-wave velocity 232 cm/s Mean velocity, D 165 cm/s Deceleration time *313 ms 150-230 Pressure half-time 144 ms Mean gradient, D 11 mm Hg Peak gradient, D 19 mm Hg Peak E/A ratio 0.9 Valve area, pressure half-time 1.53 cm^2 Valve area index, pressure half-time 0.92 cm^2/m^2 Maximal regurgitant velocity 447 cm/s Tricuspid valve Regurgitant peak velocity 341 cm/s Peak RV-RA gradient, S 47 mm Hg Maximal regurgitant velocity 341 cm/s Systemic veins Estimated CVP 10 mm Hg Right ventricle RV pressure, S *57 mm Hg <30 Pulmonic valve Peak velocity, S 143 cm/s LEGEND: Mean values are shown as u=mean value. Asterisk (*) ortiz values outside specified normal range. Prepared and signed by Moses Kee [id number]
[2016-08-15] MEDS: RESP: ALBUTEROL 2.5 MG/IPRATROPIUM 0.5 MG NEB (SCH) NEB (20:00)
[2016-08-15] MEDS: ATORVASTATIN 20 MG TAB PO SCH (20:58)
[2016-08-16] VITALS (9 sets, daily range): BP systolic 109–143; BP diastolic 52–82; PULSE 68–86; RESP 17–26; TEMP 97.5–98.2; O2SAT 93–99
[2016-08-16] MEDS: HEPARIN SODIUM - SQ 10,000 UNITS/ML VIAL SQ SCH ×3 (00:16→22:39)
[2016-08-16] MEDS: PIPERACIL-TAZO 3.375 GM PREMIX 50 ML IV SCH ×5 (02:44→20:39)
[2016-08-16] MEDS: CHLORHEXIDINE GLUCONATE 2 % 1 PACK (2 CLOTHS) TOP SCH (04:00)
[2016-08-16 05:20] LABS: HEMATOCRIT 33.7 % (35.0-46.0); MEAN CELL VOLUME 84.9 FL (80.0-100.0); MEAN CORPUSCULAR HGB CONC 32.9 % (32.0-36.0); PLATELET COUNT 255 TH/MM3 (150-450); RED BLOOD COUNT 3.98 MIL/MM3 (4.00-5.30); RED CELL DISTRIBUTION WIDTH 14.6 % (11.6-17.2); REVIEW FLAG FINAL; WHITE BLOOD COUNT 8.1 TH/MM3 (4.0-11.0)
[2016-08-16 05:39] LABS: BICARBONATE 29.7 MEQ/L (21.0-32.0); POTASSIUM 3.7 MEQ/L (3.5-5.1)
[2016-08-16] MEDS: INSULIN ASPART SUPPLEMENTAL SCALE SQ SCH ×4 (06:29→20:40)
[2016-08-16] MEDS: RESP: ALBUTEROL 2.5 MG/IPRATROPIUM 0.5 MG NEB (SCH) NEB ×4 (07:59→19:49)
[2016-08-16] MEDS: CHLORHEXIDINE 0.12% (ORAL KIT) 15 ML CUP MT SCH ×2 (08:00→20:00)
[2016-08-16] MEDS: MULTIVITAMINS/MINERALS THERAPEUTIC TAB PO SCH (08:54)
[2016-08-16] MEDS: METHIMAZOLE 10 MG TAB PO SCH (08:54)
[2016-08-16] MEDS: PANTOPRAZOLE SOD 40 MG DELAYED RELEASE TAB PO SCH (08:54)
[2016-08-16] MEDS: CALCIUM/VITAMIN D 250 MG/125 U TAB PO SCH ×2 (08:54→20:39)
[2016-08-16] MEDS: ARTIFICIAL TEARS OPTH SOLN 15 ML BTL EACH EYE SCH ×3 (08:55→18:00)
[2016-08-16] MEDS: DOCUSATE SODIUM 100 MG/10 ML UDC G-TUBE SCH ×2 (08:55→20:40)
[2016-08-16] MEDS: SODIUM CHLORIDE 0.9% FLUSH 5 ML FLUSH IV FLUSH SCH ×2 (08:55→20:39)
[2016-08-16] MEDS: AZITHROMYCIN INJ 500 MG in SODIUM CHLOR 0.9% 250 ML INJ 250 ML IV SCH (08:55)
[2016-08-16] MEDS: SODIUM CHLORIDE 0.9% FLUSH 5 ML FLUSH IV FLUSH PRN (08:55)
--- NOTE | 2016-08-16 10:14 | HHI.PR ---
Subjective Remarks pt doing well eating. happy. Objective Vitals heart reg lung good air entry abd s/nt ext no edema huston. cvl Vital Signs Date Time Temp Pulse Resp B/P Pulse Ox O2 Delivery O2 Flow Rate FiO2 08/16/16 04:00 68 08/16/16 04:00 98.0 68 17 118/58 96 08/16/16 00:00 97.6 72 19 112/52 97 08/16/16 00:00 72 08/15/16 22:00 85 08/15/16 20:01 99 Nasal Cannula 2.00 08/15/16 20:00 97.7 95 23 116/72 99 08/15/16 20:00 95 08/15/16 18:00 84 08/15/16 16:00 98.2 80 25 124/96 98 08/15/16 16:00 80 08/15/16 14:00 82 08/15/16 12:00 97.9 83 25 144/65 99 08/15/16 12:00 83 08/15/16 08/15/16 08/16/16 15:00 23:00 07:00 Intake Total 949 ml 216 ml 224 ml Output Total 175 ml 225 ml 200 ml Balance 774 ml -9 ml 24 ml Intake Oral 600 ml 100 ml 50 ml IV Total 349 ml 116 ml 174 ml Output Urine Total 175 ml 225 ml 200 ml # Bowel Movements 2 Result Diagram: 08/16/16 0440 08/16/16 0440 Date of Insertion: Aug 11, 2016 Date of Insertion: Aug 11, 2016 Side: Right Location: Subclavian A/P Problem List: (1) Respiratory failure Status: Acute Plan: Pt presents with respiratory failure requiring intubation and pressor support. History is unclear. she was at a nursing facility due to right wrist fx. But pt can't give clear hx of events leading up to her decline. Speculation that she had aspiration pna due to leukocytosis and basilar infiltrated R>L .But also she has elevated troponins and was diuresed in ICU with improvement in cxr. She has been o broad spectrum abx with zosyn and azithro since 08/11. echo shows systolic chf of 40percent, mod/severe mitral stenosis, severe TR and pulmonary htn. She is currently weaned to 2lnc will plan for transfer to med/surg. tele bed pending d/c betzaida in AM complete the abx course holter for arrhythmia. consider stress testing but troponin might be related to infection/stress speech/swallow following. on modified diet dvt prophylaxis PT Problem Qualifiers (1) Respiratory failure: Qualified Code: J96.01 - Acute respiratory failure with hypoxia Dio Wade MD Aug 16, 2016 10:14
[2016-08-16] MEDS: ATORVASTATIN 20 MG TAB PO SCH (20:39)
[2016-08-17] VITALS (8 sets, daily range): BP systolic 133–143; BP diastolic 61–70; PULSE 80–113; RESP 16–26; TEMP 95.8–98.1; O2SAT 88–97
[2016-08-17] MEDS: CHLORHEXIDINE GLUCONATE 2 % 1 PACK (2 CLOTHS) TOP SCH (05:26)
[2016-08-17] MEDS: INSULIN ASPART SUPPLEMENTAL SCALE SQ SCH ×4 (06:32→21:00)
[2016-08-17] MEDS: PIPERACIL-TAZO 3.375 GM PREMIX 50 ML IV SCH ×3 (06:32→15:26)
[2016-08-17] MEDS: CHLORHEXIDINE 0.12% (ORAL KIT) 15 ML CUP MT SCH ×2 (08:00→20:00)
[2016-08-17 08:33] LABS: HEMATOCRIT 37.1 % (35.0-46.0); MEAN CELL VOLUME 85.2 FL (80.0-100.0); MEAN CORPUSCULAR HEMOGLOBIN 27.5 PG (27.0-34.0); MEAN CORPUSCULAR HGB CONC 32.3 % (32.0-36.0); PLATELET COUNT 297 TH/MM3 (150-450); RED BLOOD COUNT 4.36 MIL/MM3 (4.00-5.30); RED CELL DISTRIBUTION WIDTH 14.2 % (11.6-17.2); REVIEW FLAG FINAL; WHITE BLOOD COUNT 11.7 TH/MM3 (4.0-11.0)
[2016-08-17 08:33] LABS: BICARBONATE 27.4 MEQ/L (21.0-32.0); POTASSIUM 3.7 MEQ/L (3.5-5.1)
[2016-08-17] MEDS: RESP: ALBUTEROL 2.5 MG/IPRATROPIUM 0.5 MG NEB (SCH) NEB ×4 (08:54→19:40)
[2016-08-17] MEDS: ARTIFICIAL TEARS OPTH SOLN 15 ML BTL EACH EYE SCH ×3 (09:00→16:59)
[2016-08-17] MEDS: MULTIVITAMINS/MINERALS THERAPEUTIC TAB PO SCH (09:09)
[2016-08-17] MEDS: DOCUSATE SODIUM 100 MG/10 ML UDC G-TUBE SCH ×2 (09:09→21:30)
[2016-08-17] MEDS: METHIMAZOLE 10 MG TAB PO SCH (09:10)
[2016-08-17] MEDS: CALCIUM/VITAMIN D 250 MG/125 U TAB PO SCH ×2 (09:10→21:55)
[2016-08-17] MEDS: SODIUM CHLORIDE 0.9% FLUSH 5 ML FLUSH IV FLUSH SCH ×2 (09:10→22:04)
[2016-08-17] MEDS: PANTOPRAZOLE SOD 40 MG DELAYED RELEASE TAB PO SCH (09:10)
[2016-08-17] MEDS: AZITHROMYCIN INJ 500 MG in SODIUM CHLOR 0.9% 250 ML INJ 250 ML IV SCH (09:11)
[2016-08-17] MEDS: HEPARIN SODIUM - SQ 10,000 UNITS/ML VIAL SQ SCH ×2 (12:42→22:03)
--- NOTE | 2016-08-17 15:38 | HHI.PR ---
Subjective Remarks Pt having some issues with tachyarrhythmias today currently looks to be in A. fib RVR with HR in the 120-140's. No documented hx of A. fib Pt feeling more SOB this afternoon She states that she feels worse today than she did yesterday. Afebrile. Objective Vitals Vital Signs Date Time Temp Pulse Resp B/P Pulse Ox O2 Delivery O2 Flow Rate FiO2 08/17/16 12:02 95.8 99 16 143/65 88 08/17/16 09:01 97.8 92 26 138/62 91 08/17/16 08:56 92 Nasal Cannula 2.00 08/17/16 05:45 98.1 80 19 135/70 94 08/16/16 22:45 97.6 86 18 143/75 93 08/16/16 20:00 83 08/16/16 20:00 97.5 83 26 143/63 98 08/16/16 19:51 98 Nasal Cannula 2.00 08/16/16 16:00 97.6 72 24 124/63 98 08/16/16 16:00 72 08/16/16 08/16/16 08/17/16 15:00 23:00 07:00 Intake Total 797 ml 144 ml 450 ml Output Total 350 ml 320 ml 1 ml Balance 447 ml -176 ml 449 ml Intake Oral 400 ml 450 ml IV Total 397 ml 144 ml Output Urine Total 350 ml 320 ml Stool Total 1 ml # Voids 2 # Bowel Movements 1 1 1 Result Diagram: 08/17/16 0738 08/17/16 0730 Other Results Laboratory Tests Test 08/16/16 08/17/16 08/17/16 04:40 07:30 07:38 White Blood Count 8.1 TH/MM3 11.7 TH/MM3 Red Blood Count 3.98 MIL/MM3 4.36 MIL/MM3 Hemoglobin 11.1 GM/DL 12.0 GM/DL Hematocrit 33.7 % 37.1 % Mean Corpuscular Volume 84.9 FL 85.2 FL Mean Corpuscular Hemoglobin 28.0 PG 27.5 PG Mean Corpuscular Hemoglobin 32.9 % 32.3 % Concent Red Cell Distribution Width 14.6 % 14.2 % Platelet Count 255 TH/MM3 297 TH/MM3 Mean Platelet Volume 9.9 FL 10.0 FL Sodium Level 148 MEQ/L 144 MEQ/L Potassium Level 3.7 MEQ/L 3.7 MEQ/L Chloride Level 111 MEQ/L 107 MEQ/L Carbon Dioxide Level 29.7 MEQ/L 27.4 MEQ/L Anion Gap 7 MEQ/L 10 MEQ/L Blood Urea Nitrogen 22 MG/DL 22 MG/DL Creatinine 0.76 MG/DL 0.76 MG/DL Estimat Glomerular Filtration 72 ML/MIN 72 ML/MIN Rate Random Glucose 98 MG/DL 116 MG/DL Calcium Level 8.4 MG/DL 8.4 MG/DL Imaging Last Impressions Chest X-Ray 08/14/16 0000 Signed Impressions: Service Date/Time: Sunday, August 14, 2016 08:01 - CONCLUSION: Improvement as described above. Eloy Hair MD FACR Objective Remarks General: NAD, awake, alert Chest: Mild wheeze bilaterally, appears to have some increased respiratory effort with belly breathing Cardiac: Tachy, irregular Abd: +BS, soft ND/NT Ext: no edema Procedures 2D echo (08/15/16): - Estimated ejection fraction was in the range of 40% to 45%. - Diffuse hypokinesis. - Moderate to severe mitral stenosis with mild regurgitation. Mean gradient: 11mm Hg (D). Valve area by pressure half-time: 1.53cm^2. - Left atrium moderately dilated. - Moderate-severe tricuspid regurgitation. - PA peak pressure: 56mm Hg (S). - Left pleural effusion. Date of Insertion: Aug 11, 2016 Date of Insertion: Aug 11, 2016 Side: Right Location: Subclavian A/P Problem List: (1) Respiratory failure Status: Acute Plan: - Pt presented with respiratory failure requiring intubation and pressor support. - History is unclear. She was at a nursing facility due to right wrist fx, but pt can't give clear hx of events leading up to her decline. - It is speculated that she had aspiration PNA in the setting of leukocytosis and basilar infiltrated R>L, but she also was found to have elevated troponin and was diuresed in ICU with improvement in cxr. - Pt has been on broad spectrum abx with Zosyn and Azithromycin since 08/11. - 2D echo with noted systolic CHF with EF of 40%, mod/severe mitral stenosis, severe TR and pulmonary HTN. - Pt is currently on 2L via NC - Blood cultures (08/11/16) with NGTD - Sputum culture (08/11/16) with heavy growth of natural respiratory sarah - Pt was transferred to med/surg floor on 08/16/16 - Today pt having issues with tachyarrhythmia today on telemetry, currently appears to be in A. fib RVR with HR in the 130-150s at times. No hx of A. fib. TSH on 08/11 was 1.250 - Pt more SOB this afternoon and nursing staff feels she is somewhat confused today - Start Metoprolol 25mg Q8H, first dose now - Monitor vitals closely - Holter is pending. - ST following, pt is on mechanical soft diet. - PT daily - DVT prophylaxis (2) Hyperthyroidism Status: Chronic Plan: - Home meds continued - TSH on 08/11/16 was 1.250 (3) Hyperlipidemia Status: Acute Plan: - Home meds continued Assessment and Plan Patient examined. Assessment and plan formulated with Kiki Pang PA-C. I agree with the above. Problem Qualifiers (1) Respiratory failure: Qualified Code: J96.01 - Acute respiratory failure with hypoxia Kiki Pang Aug 17, 2016 15:38 Matt Henao DO Aug 27, 2016 22:24
[2016-08-17] MEDS ORDERED: METOPROLOL TARTRATE 25 MG TAB PO ONE (16:15)
[2016-08-17] MEDS: METOPROLOL TARTRATE 25 MG TAB PO SCH (21:55)
[2016-08-17] MEDS: ATORVASTATIN 20 MG TAB PO SCH (21:55)
[2016-08-18] VITALS (10 sets, daily range): BP systolic 110–150; BP diastolic 54–93; PULSE 77–105; RESP 18–24; TEMP 95.7–98.1; O2SAT 92–99
[2016-08-18] MEDS: CHLORHEXIDINE GLUCONATE 2 % 1 PACK (2 CLOTHS) TOP SCH (03:50)
[2016-08-18] MEDS: METOPROLOL TARTRATE 25 MG TAB PO SCH ×2 (05:19→13:14)
[2016-08-18] MEDS: INSULIN ASPART SUPPLEMENTAL SCALE SQ SCH ×4 (06:58→21:00)
[2016-08-18] MEDS: CHLORHEXIDINE 0.12% (ORAL KIT) 15 ML CUP MT SCH ×2 (07:35→20:00)
[2016-08-18] MEDS: ARTIFICIAL TEARS OPTH SOLN 15 ML BTL EACH EYE SCH ×3 (07:35→17:30)
[2016-08-18 08:02] LABS: MEAN CELL VOLUME 85.4 FL (80.0-100.0); MEAN CORPUSCULAR HEMOGLOBIN 28.1 PG (27.0-34.0); MEAN CORPUSCULAR HGB CONC 32.9 % (32.0-36.0); PLATELET COUNT 253 TH/MM3 (150-450); RED BLOOD COUNT 4.22 MIL/MM3 (4.00-5.30); RED CELL DISTRIBUTION WIDTH 14.8 % (11.6-17.2); REVIEW FLAG FINAL; WHITE BLOOD COUNT 9.6 TH/MM3 (4.0-11.0)
[2016-08-18 08:11] LABS: BICARBONATE 28.5 MEQ/L (21.0-32.0)
[2016-08-18] MEDS: RESP: ALBUTEROL 2.5 MG/IPRATROPIUM 0.5 MG NEB (SCH) NEB ×2 (09:15→20:35)
[2016-08-18] MEDS: PANTOPRAZOLE SOD 40 MG DELAYED RELEASE TAB PO SCH (09:34)
[2016-08-18] MEDS: METHIMAZOLE 10 MG TAB PO SCH (09:34)
[2016-08-18] MEDS: CALCIUM/VITAMIN D 250 MG/125 U TAB PO SCH ×2 (09:35→21:55)
[2016-08-18] MEDS: MULTIVITAMINS/MINERALS THERAPEUTIC TAB PO SCH (09:35)
[2016-08-18] MEDS: SODIUM CHLORIDE 0.9% FLUSH 5 ML FLUSH IV FLUSH SCH ×2 (09:35→21:00)
[2016-08-18] MEDS: DOCUSATE SODIUM 100 MG/10 ML UDC G-TUBE SCH ×2 (09:35→21:30)
[2016-08-18] MEDS ORDERED: RESP: ALBUTEROL 2.5 MG/IPRATROPIUM 0.5 MG NEB (PRN) NEB (11:00)
--- NOTE | 2016-08-18 11:00 | EKG ---
Date Performed: 08/17/2016 Time Performed: 16:34:47 PTAGE: 89 years EKG: Sinus rhythm with frequent atrial premature beats including atrial triplet LEFT BUNDLE BRANCH BLOCK ABNORMAL ECG Compared to prior tracing no significant change PREVIOUS TRACING : 08/11/2016 07.46 DOCTOR: Gucci Dunn Interpretating Date/Time 08/18/2016 10:58:23
[2016-08-18] MEDS: HEPARIN SODIUM - SQ 10,000 UNITS/ML VIAL SQ SCH ×2 (11:16→23:00)
--- NOTE | 2016-08-18 15:50 | HHI.PR ---
Subjective Remarks Pt more alert and oriented today She was still tachycardic into the 120-150's until this afternoon on telemetry Currently in the 70-90's Objective Vitals Vital Signs Date Time Temp Pulse Resp B/P Pulse Ox O2 Delivery O2 Flow Rate FiO2 08/18/16 12:16 97.8 83 20 147/67 93 08/18/16 10:18 83 08/18/16 09:15 96 Nasal Cannula 2.00 08/18/16 08:40 96.3 84 18 150/73 97 08/18/16 05:56 97.4 79 18 143/93 99 08/18/16 00:00 98.1 80 24 143/66 96 08/17/16 20:00 97.3 82 18 133/65 97 08/17/16 19:00 113 08/17/16 17:36 97.4 95 16 136/61 95 08/17/16 16:14 95 Nasal Cannula 2.00 08/17/16 08/17/16 08/18/16 15:00 23:00 07:00 Intake Total 240 ml Balance 240 ml Intake Oral 240 ml # Voids 3 3 1 # Bowel Movements 1 3 1 Result Diagram: 08/18/16 0740 08/18/16 0735 Other Results Laboratory Tests Test 08/17/16 08/17/16 08/18/16 08/18/16 07:30 07:38 07:35 07:40 Sodium Level 144 MEQ/L 145 MEQ/L Potassium Level 3.7 MEQ/L 4.0 MEQ/L Chloride Level 107 MEQ/L 109 MEQ/L Carbon Dioxide Level 27.4 MEQ/L 28.5 MEQ/L Anion Gap 10 MEQ/L 8 MEQ/L Blood Urea Nitrogen 22 MG/DL 16 MG/DL Creatinine 0.76 MG/DL 0.69 MG/DL Estimat Glomerular Filtration 72 ML/MIN 80 ML/MIN Rate Random Glucose 116 MG/DL 109 MG/DL Calcium Level 8.4 MG/DL 8.1 MG/DL White Blood Count 11.7 TH/MM3 9.6 TH/MM3 Red Blood Count 4.36 MIL/MM3 4.22 MIL/MM3 Hemoglobin 12.0 GM/DL 11.8 GM/DL Hematocrit 37.1 % 36.0 % Mean Corpuscular Volume 85.2 FL 85.4 FL Mean Corpuscular Hemoglobin 27.5 PG 28.1 PG Mean Corpuscular Hemoglobin 32.3 % 32.9 % Concent Red Cell Distribution Width 14.2 % 14.8 % Platelet Count 297 TH/MM3 253 TH/MM3 Mean Platelet Volume 10.0 FL 9.8 FL Imaging Last Impressions Chest X-Ray 08/14/16 0000 Signed Impressions: Service Date/Time: Sunday, August 14, 2016 08:01 - CONCLUSION: Improvement as described above. Eloy Hair MD FACR Objective Remarks General: NAD, awake, alert Chest: Mild wheeze bilaterally, appears to have some increased respiratory effort with belly breathing Cardiac: Irregular Abd: +BS, soft ND/NT Ext: no edema Procedures 2D echo (08/15/16): - Estimated ejection fraction was in the range of 40% to 45%. - Diffuse hypokinesis. - Moderate to severe mitral stenosis with mild regurgitation. Mean gradient: 11mm Hg (D). Valve area by pressure half-time: 1.53cm^2. - Left atrium moderately dilated. - Moderate-severe tricuspid regurgitation. - PA peak pressure: 56mm Hg (S). - Left pleural effusion. Date of Insertion: Aug 11, 2016 Date of Insertion: Aug 11, 2016 Side: Right Location: Subclavian A/P Problem List: (1) Respiratory failure Status: Acute Plan: - Pt presented with respiratory failure requiring intubation and pressor support. - History is unclear. She was at a nursing facility due to right wrist fx, but pt can't give clear hx of events leading up to her decline. - It is speculated that she had aspiration PNA in the setting of leukocytosis and basilar infiltrated R>L, but she also was found to have elevated troponin and was diuresed in ICU with improvement in cxr. - Pt has been on broad spectrum abx with Zosyn and Azithromycin since 08/11. - 2D echo with noted systolic CHF with EF of 40%, mod/severe mitral stenosis, severe TR and pulmonary HTN. - Pt is currently on 2L via NC - Blood cultures (08/11/16) with NGTD - Sputum culture (08/11/16) with heavy growth of normal respiratory sarah - Pt was transferred to med/surg floor on 08/16/16 - Yesterday pt was having issues with tachyarrhythmia on telemetry, and appeared to be in A. fib RVR with HR in the 130-150s at times. No hx of A. fib. TSH on 08/11 was 1.250 - Pt was started on Metoprolol 25mg Q8H, on 08/17. HR remained elevated until this afternoon. Currently her HR is in the 60-70s but is irregular and appears to still be irregular - EKG - Change Metoprolol to 50mg Q12H - Monitor vitals closely - Holter is pending. - ST following, pt is on mechanical soft diet. - PT daily - DVT prophylaxis (2) Hyperthyroidism Status: Chronic Plan: - Home meds continued - TSH on 08/11/16 was 1.250 (3) Hyperlipidemia Status: Acute Plan: - Home meds continued Assessment and Plan Patient examined. Assessment and plan formulated with Kiki Pang PA-C. I agree with the above. Problem Qualifiers (1) Respiratory failure: Qualified Code: J96.01 - Acute respiratory failure with hypoxia Kiki Pang Aug 18, 2016 15:50 Matt Henao DO Aug 27, 2016 22:25
[2016-08-18 17:21] LABS: FREE T4 1.2 NG/DL (0.76-1.46)
[2016-08-18] MEDS: ATORVASTATIN 20 MG TAB PO SCH (21:55)
[2016-08-18] MEDS: METOPROLOL TARTRATE 50 MG TAB PO SCH (21:55)
[2016-08-19] VITALS (9 sets, daily range): BP systolic 112–183; BP diastolic 56–77; PULSE 50–98; RESP 18–28; TEMP 96.2–97.4; O2SAT 94–98
[2016-08-19] MEDS: CHLORHEXIDINE GLUCONATE 2 % 1 PACK (2 CLOTHS) TOP SCH (03:32)
[2016-08-19] MEDS: INSULIN ASPART SUPPLEMENTAL SCALE SQ SCH ×4 (07:00→21:00)
[2016-08-19] MEDS: CHLORHEXIDINE 0.12% (ORAL KIT) 15 ML CUP MT SCH ×2 (08:00→20:00)
[2016-08-19] MEDS: SODIUM CHLORIDE 0.9% FLUSH 5 ML FLUSH IV FLUSH SCH ×2 (09:00→21:00)
[2016-08-19] MEDS: ARTIFICIAL TEARS OPTH SOLN 15 ML BTL EACH EYE SCH ×3 (09:00→17:00)
[2016-08-19] MEDS: DOCUSATE SODIUM 100 MG/10 ML UDC G-TUBE SCH ×2 (09:13→21:30)
[2016-08-19] MEDS: METOPROLOL TARTRATE 50 MG TAB PO SCH ×2 (09:13→23:54)
[2016-08-19] MEDS: CALCIUM/VITAMIN D 250 MG/125 U TAB PO SCH ×2 (09:13→23:54)
[2016-08-19] MEDS: PANTOPRAZOLE SOD 40 MG DELAYED RELEASE TAB PO SCH (09:13)
[2016-08-19] MEDS: METHIMAZOLE 10 MG TAB PO SCH (09:13)
[2016-08-19] MEDS: MULTIVITAMINS/MINERALS THERAPEUTIC TAB PO SCH (09:13)
[2016-08-19] MEDS: RESP: ALBUTEROL 2.5 MG/IPRATROPIUM 0.5 MG NEB (SCH) NEB ×2 (10:13→19:02)
[2016-08-19] MEDS: HEPARIN SODIUM - SQ 10,000 UNITS/ML VIAL SQ SCH ×2 (12:22→23:54)
[2016-08-19 14:14] LABS: MEAN CELL VOLUME 85.8 FL (80.0-100.0); MEAN CORPUSCULAR HEMOGLOBIN 27.8 PG (27.0-34.0); MEAN CORPUSCULAR HGB CONC 32.4 % (32.0-36.0); PLATELET COUNT 322 TH/MM3 (150-450); RED BLOOD COUNT 4.43 MIL/MM3 (4.00-5.30); RED CELL DISTRIBUTION WIDTH 14.8 % (11.6-17.2); REVIEW FLAG FINAL; WHITE BLOOD COUNT 12.2 TH/MM3 (4.0-11.0)
[2016-08-19 14:37] LABS: BICARBONATE 31.4 MEQ/L (21.0-32.0); POTASSIUM 3.5 MEQ/L (3.5-5.1)
--- NOTE | 2016-08-19 15:06 | RADRPT ---
EXAM DATE/TIME: 08/19/2016 13:53 [facility] COMPARISON: CHEST SINGLE AP, August 14, 2016, 8:01. INDICATIONS : Patient short of breath. MEDICAL HISTORY : Diabetes mellitus type II. SURGICAL HISTORY : None. ENCOUNTER: Subsequent ACUITY: 4 - 6 days PAIN SCORE: 0/10 LOCATION: Bilateral chest FINDINGS: There is a right-sided central line with the line crossing midline and then directed inferiorly. This appears advanced in position as compared to the prior exam. There are persistent bibasilar air space opacities and layering seen on lateral exam consistent with moderate-sized pleural effusions. The lung apices are clear. Heart size appears mildly enlarged. Blad gaurang vasculature are prominent bilaterally. Osseous structures appear intact. CONCLUSION: 1. The right-sided central line appears to have advanced and is now crossing midline and directed inf eriorly within adjacent vessel. Recommend repositioning. 2. Persistent bibasilar airspace opacities and layering pleural effusions. Given the cardiomegaly thi s may represent stable congestive heart failure and pulmonary edema. Liane Garcia MD on August 19, 2016 at 15:02 Board Certified Radiologist. This report was verified electronically.
--- NOTE | 2016-08-19 15:15 | HHI.PR ---
Subjective Remarks Pt reports that she feels SOB and is requiring 3L of supplemental O2 No chest pain HR stable on telemetry Objective Vitals Vital Signs Date Time Temp Pulse Resp B/P Pulse Ox O2 Delivery O2 Flow Rate FiO2 08/19/16 12:00 96.2 76 22 122/65 95 08/19/16 10:14 95 Nasal Cannula 3.00 08/19/16 08:00 96.4 75 28 183/65 95 08/19/16 05:19 96.5 98 18 149/77 94 08/19/16 00:42 97.3 77 18 112/56 95 08/18/16 20:37 92 Nasal Cannula 2.00 08/18/16 20:00 97.2 84 20 110/54 95 08/18/16 19:00 105 08/18/16 16:51 95.7 77 18 135/64 96 08/18/16 08/18/16 08/19/16 15:00 23:00 07:00 # Voids 3 3 # Bowel Movements 1 1 Result Diagram: 08/19/16 1335 08/19/16 1335 Other Results Laboratory Tests Test 08/18/16 08/18/16 08/19/16 07:35 07:40 13:35 Sodium Level 145 MEQ/L 143 MEQ/L Potassium Level 4.0 MEQ/L 3.5 MEQ/L Chloride Level 109 MEQ/L 105 MEQ/L Carbon Dioxide Level 28.5 MEQ/L 31.4 MEQ/L Anion Gap 8 MEQ/L 7 MEQ/L Blood Urea Nitrogen 16 MG/DL 16 MG/DL Creatinine 0.69 MG/DL 0.65 MG/DL Estimat Glomerular Filtration 80 ML/MIN 86 ML/MIN Rate Random Glucose 109 MG/DL 127 MG/DL Calcium Level 8.1 MG/DL 8.9 MG/DL Free Thyroxine 1.20 NG/DL Thyroid Stimulating Hormone 1.450 uIU/ML 3rd Gen White Blood Count 9.6 TH/MM3 12.2 TH/MM3 Red Blood Count 4.22 MIL/MM3 4.43 MIL/MM3 Hemoglobin 11.8 GM/DL 12.3 GM/DL Hematocrit 36.0 % 38.0 % Mean Corpuscular Volume 85.4 FL 85.8 FL Mean Corpuscular Hemoglobin 28.1 PG 27.8 PG Mean Corpuscular Hemoglobin 32.9 % 32.4 % Concent Red Cell Distribution Width 14.8 % 14.8 % Platelet Count 253 TH/MM3 322 TH/MM3 Mean Platelet Volume 9.8 FL 9.9 FL Imaging Last Impressions Chest X-Ray 08/19/16 0000 Signed Impressions: Service Date/Time: Friday, August 19, 2016 13:53 - CONCLUSION: 1. The right-sided central line appears to have advanced and is now crossing midline and directed inferiorly within adjacent vessel. Recommend repositioning. 2. Persistent bibasilar airspace opacities and layering pleural effusions. Given the cardiomegaly this may represent stable congestive heart failure and pulmonary edema. Liane Garcia MD Last Impressions Chest X-Ray 08/14/16 0000 Signed Impressions: Service Date/Time: Sunday, August 14, 2016 08:01 - CONCLUSION: Improvement as described above. Eloy Hair MD FACR Objective Remarks General: NAD, awake, alert Chest: Crackles half way up bilaterally Cardiac: Irregular Abd: +BS, soft ND/NT Ext: no edema Procedures 2D echo (08/15/16): - Estimated ejection fraction was in the range of 40% to 45%. - Diffuse hypokinesis. - Moderate to severe mitral stenosis with mild regurgitation. Mean gradient: 11mm Hg (D). Valve area by pressure half-time: 1.53cm^2. - Left atrium moderately dilated. - Moderate-severe tricuspid regurgitation. - PA peak pressure: 56mm Hg (S). - Left pleural effusion. Date of Insertion: Aug 11, 2016 Date of Insertion: Aug 11, 2016 Side: Right Location: Subclavian A/P Problem List: (1) Respiratory failure Status: Acute Plan: - Pt presented with respiratory failure requiring intubation and pressor support. - History is unclear. She was at a nursing facility due to right wrist fx, but pt can't give clear hx of events leading up to her decline. - It is speculated that she had aspiration PNA in the setting of leukocytosis and basilar infiltrated R>L, but she also was found to have elevated troponin and was diuresed in ICU with improvement in cxr. - Pt has been on broad spectrum abx with Zosyn and Azithromycin since 08/11. - 2D echo with noted systolic CHF with EF of 40%, mod/severe mitral stenosis, severe TR and pulmonary HTN. - Pt is currently on 2L via NC - Blood cultures (08/11/16) with NGTD - Sputum culture (08/11/16) with heavy growth of normal respiratory sarah - Pt was transferred to med/surg floor on 08/16/16 - On 08/17 pt was having issues with tachyarrhythmia on telemetry, and appeared to be in a tachy arrhythmia with HR in the 130-150s at times. No hx of A. fib. TSH on 08/11 was 1.250 - Pt was started on Metoprolol 25mg Q8H, on 08/17. HR remained elevated until the afternoon on 08/18. Her HR improved into the 60-70s but is irregular - EKG (08/18) --> sinus rhythm with marked sinus arrhythmia, LBBB - Metoprolol to 50mg Q12H on 08/18 - HR more stable today. A few episodes of some tachycardia on telemetry but not sustained - Pt requiring more supplemental O2 on 08/19 - CXR (08/19) --> The right-sided central line appears to have advanced and is now crossing midline and directed inferiorly within adjacent vessel. Persistent bibasilar airspace opacities and layering pleural effusions. - Give Lasix 40mg IV x one dose - Recheck labs and CXR in AM - Discussed with nurse repositioning her central line and if not possible then place peripheral line and take out central line. - Monitor vitals closely - Holter is pending. - ST following, pt is on mechanical soft diet. - PT daily - DVT prophylaxis (2) Hyperthyroidism Status: Chronic Plan: - Home meds continued - TSH on 08/11/16 was 1.250 (3) Hyperlipidemia Status: Acute Plan: - Home meds continued Assessment and Plan Patient examined. Assessment and plan formulated with Kiki Pang PA-C. I agree with the above. Problem Qualifiers (1) Respiratory failure: Qualified Code: J96.01 - Acute respiratory failure with hypoxia Kiki Pang Aug 19, 2016 15:15 Matt Henao DO Aug 27, 2016 22:25
[2016-08-19] MEDS ORDERED: FUROSEMIDE 40 MG/4 ML VIAL IV PUSH ONE (15:30)
--- NOTE | 2016-08-19 20:32 | EKG ---
Date Performed: 08/18/2016 Time Performed: 16:45:56 PTAGE: 89 years EKG: Sinus rhythm WITH MARKED SINUS ARRHYTHMIA AND PACS LEFT BUNDLE BRANCH BLOCK ABNORMAL ECG PREVIOUS TRACING : 08/17/2016 16.34 Compared to prior tracing no significant change DOCTOR: Bishop Salgado Interpretating Date/Time 08/19/2016 20:31:12
--- NOTE | 2016-08-19 21:02 | HM ---
Date Performed: 08/15/2016 Time Performed: 13:22:00 HOOKUP DATE: 08/15/16 01:22:00 PM Sat ANALYSIS START TIME: 08/15/2016 1:27:00 PM ANALYSIS END TIME: 08/16/2016 11:43:58 AM PATIENT AGE: 89 PATIENT HEIGHT: 64 PATIENT WEIGHT: 137 DRUG LIST PATIENT DIAGNOSIS: RESP FAILURE SEPSIS TEST NARRATIVE: The patient's average heart rate was 82 BPM. Heart rates greater than 120 B PM were noted < 1% of the time. No episodes of bradycardia were noted. No pauses exceeding 2.0 s econds were noted. 2049 ventricular ectopics, which represented 2% of the total beat count, were noted. The highest ventricular ectopic frequency occurred from 08:00 PM to 09:00 PM Sat. During thi s time 236 VE(s) occurred. Ventricular ectopics were observed as 2041 isolated beat(s) and as 4 coup let(s). No runs were noted. Some of the ventricular beats occurred in bigeminal cycles. 3697 lopez praventricular ectopics, which represented 3% of the total beat count, were noted. The highest supra ventricular ectopic frequency occurred from 08:00 AM to 09:00 AM Sun. During this time 250 SVE(s) oc curred. Multiple episodes of ST depression (defined as -1.0 mm or more) were noted in channel 1. The maximum depression of -1.7 mm occurred at 04:25:46 PM Sat. Multiple episodes of ST depression (defined as -1.0 mm or more) were noted in channel 2. The maximum depression of -1.6 mm occurred at 04:28:56 PM Sat. No episodes of ST depression (defined as -1.0 mm or more) were noted in channel 3. TEST INTERPRETATION: Sinus rhythm Frequent PACs Frequent PVCs Brief runs of nonsustained atrial tachycardia Signed by : Bishop Salgado
[2016-08-19] MEDS: ATORVASTATIN 20 MG TAB PO SCH (23:54)
[2016-08-20] VITALS (9 sets, daily range): BP systolic 114–132; BP diastolic 51–80; PULSE 50–85; RESP 18–20; TEMP 96.8–97.6; O2SAT 95–98
[2016-08-20] MEDS: CHLORHEXIDINE GLUCONATE 2 % 1 PACK (2 CLOTHS) TOP SCH (04:00)
--- NOTE | 2016-08-20 08:06 | RADRPT ---
EXAM DATE/TIME: 08/20/2016 07:49 [facility] COMPARISON: CHEST PA & LAT, August 19, 2016, 13:53. INDICATIONS : Short of breath MEDICAL HISTORY : Diabetes mellitus type II. SURGICAL HISTORY : None. ENCOUNTER: Subsequent ACUITY: 4 - 6 days PAIN SCORE: 0/10 LOCATION: Bilateral chest FINDINGS: The heart size is upper limits of normal for size. The lungs demonstrate diffuse increased interstiti al markings. There is further increased density at the bases being worse on the left. There is silhou etting the left hemidiaphragm. Some degree of left effusion is present. There does appear to be some blunting of the posterior costophrenic on the right representing a mild fusion There is a right subcl danae line in place with the tip extending towards the SVC and then mean to rectum into the left inno minate vein. CONCLUSION: 1. Mild to moderate left effusion. There is a small right effusion. 2. Diffuse increase interstitial markings representing diffuse processes such as edema. 3. Increased density at the bases especially on the left representing some degree of superimposed ate lectasis or consolidation. 4. Right subclavian line with its tip draped into the left innominate vein region. Sanju Meyer MD on August 20, 2016 at 8:00 Board Certified Radiologist. This report was verified electronically.
[2016-08-20] MEDS: RESP: ALBUTEROL 2.5 MG/IPRATROPIUM 0.5 MG NEB (SCH) NEB ×2 (08:12→19:11)
[2016-08-20] MEDS: DOCUSATE SODIUM 100 MG/10 ML UDC G-TUBE SCH ×2 (09:06→21:10)
[2016-08-20] MEDS: PANTOPRAZOLE SOD 40 MG DELAYED RELEASE TAB PO SCH (09:07)
[2016-08-20] MEDS: MULTIVITAMINS/MINERALS THERAPEUTIC TAB PO SCH (09:07)
[2016-08-20] MEDS: CALCIUM/VITAMIN D 250 MG/125 U TAB PO SCH ×2 (09:07→21:11)
[2016-08-20] MEDS: METHIMAZOLE 10 MG TAB PO SCH (09:07)
[2016-08-20] MEDS: METOPROLOL TARTRATE 50 MG TAB PO SCH ×2 (09:07→21:00)
[2016-08-20] MEDS: SODIUM CHLORIDE 0.9% FLUSH 5 ML FLUSH IV FLUSH SCH ×2 (09:08→21:00)
[2016-08-20] MEDS: ARTIFICIAL TEARS OPTH SOLN 15 ML BTL EACH EYE SCH ×3 (10:10→17:56)
[2016-08-20] MEDS: HEPARIN SODIUM - SQ 10,000 UNITS/ML VIAL SQ SCH (10:56)
[2016-08-20] MEDS: INSULIN ASPART SUPPLEMENTAL SCALE SQ SCH ×3 (11:00→21:00)
[2016-08-20 14:01] LABS: HEMATOCRIT 39.6 % (35.0-46.0); MEAN CELL VOLUME 85.3 FL (80.0-100.0); MEAN CORPUSCULAR HEMOGLOBIN 27.8 PG (27.0-34.0); MEAN CORPUSCULAR HGB CONC 32.6 % (32.0-36.0); PLATELET COUNT 318 TH/MM3 (150-450); RED BLOOD COUNT 4.64 MIL/MM3 (4.00-5.30); RED CELL DISTRIBUTION WIDTH 15.1 % (11.6-17.2); REVIEW FLAG FINAL
[2016-08-20 14:21] LABS: BICARBONATE 34.4 MEQ/L (21.0-32.0); POTASSIUM 3.4 MEQ/L (3.5-5.1)
--- NOTE | 2016-08-20 17:03 | HHI.PR ---
Subjective Remarks Pt reports that she has not gotten out of bed. Pt does not feel more SOB today She is back to 2L via NC Pt is voiding and moving her bowels Pt tolerating diet. Objective Vitals Vital Signs Date Time Temp Pulse Resp B/P Pulse Ox O2 Delivery O2 Flow Rate FiO2 08/20/16 15:47 97 Nasal Cannula 2.00 08/20/16 12:00 96.8 72 18 122/61 97 08/20/16 08:13 95 Nasal Cannula 2.00 08/20/16 08:00 97.5 85 18 132/66 97 08/20/16 04:00 97.3 84 18 127/80 95 08/20/16 00:00 97.0 50 20 129/70 98 08/19/16 20:00 97.4 50 20 130/60 98 08/19/16 19:02 98 Nasal Cannula 3.00 08/19/16 18:00 83 08/19/16 08/19/16 08/20/16 15:00 23:00 07:00 Intake Total 600 ml Balance 600 ml Intake Oral 600 ml # Voids 4 2 # Bowel Movements 0 4 Result Diagram: 08/20/16 1336 08/20/16 1336 Other Results Laboratory Tests Test 08/19/16 08/20/16 13:35 13:36 White Blood Count 12.2 TH/MM3 11.0 TH/MM3 Red Blood Count 4.43 MIL/MM3 4.64 MIL/MM3 Hemoglobin 12.3 GM/DL 12.9 GM/DL Hematocrit 38.0 % 39.6 % Mean Corpuscular Volume 85.8 FL 85.3 FL Mean Corpuscular Hemoglobin 27.8 PG 27.8 PG Mean Corpuscular Hemoglobin 32.4 % 32.6 % Concent Red Cell Distribution Width 14.8 % 15.1 % Platelet Count 322 TH/MM3 318 TH/MM3 Mean Platelet Volume 9.9 FL 9.7 FL Sodium Level 143 MEQ/L 145 MEQ/L Potassium Level 3.5 MEQ/L 3.4 MEQ/L Chloride Level 105 MEQ/L 107 MEQ/L Carbon Dioxide Level 31.4 MEQ/L 34.4 MEQ/L Anion Gap 7 MEQ/L 4 MEQ/L Blood Urea Nitrogen 16 MG/DL 14 MG/DL Creatinine 0.65 MG/DL 0.76 MG/DL Estimat Glomerular Filtration 86 ML/MIN 72 ML/MIN Rate Random Glucose 127 MG/DL 99 MG/DL Calcium Level 8.9 MG/DL 8.8 MG/DL Imaging Last Impressions Chest X-Ray 08/20/16 0600 Signed Impressions: Service Date/Time: August 07:49 - CONCLUSION: 1. Mild to moderate left effusion. There is a small right effusion. 2. Diffuse increase interstitial markings representing diffuse processes such as edema. 3. Increased density at the bases especially on the left representing some degree of superimposed atelectasis or consolidation. 4. Right subclavian line with its tip draped into the left innominate vein region. Sanju Meyer MD Last Impressions Chest X-Ray 08/19/16 0000 Signed Impressions: Service Date/Time: Friday, August 19, 2016 13:53 - CONCLUSION: 1. The right-sided central line appears to have advanced and is now crossing midline and directed inferiorly within adjacent vessel. Recommend repositioning. 2. Persistent bibasilar airspace opacities and layering pleural effusions. Given the cardiomegaly this may represent stable congestive heart failure and pulmonary edema. Liane Garcia MD Last Impressions Chest X-Ray 08/14/16 0000 Signed Impressions: Service Date/Time: Sunday, August 14, 2016 08:01 - CONCLUSION: Improvement as described above. Eloy Hair MD FACR Objective Remarks General: NAD, awake, alert Chest: Coarse breath sounds at the bases Cardiac: Irregular Abd: +BS, soft ND/NT Ext: no edema Procedures 2D echo (08/15/16): - Estimated ejection fraction was in the range of 40% to 45%. - Diffuse hypokinesis. - Moderate to severe mitral stenosis with mild regurgitation. Mean gradient: 11mm Hg (D). Valve area by pressure half-time: 1.53cm^2. - Left atrium moderately dilated. - Moderate-severe tricuspid regurgitation. - PA peak pressure: 56mm Hg (S). - Left pleural effusion. Date of Insertion: Aug 11, 2016 Date of Insertion: Aug 11, 2016 Side: Right Location: Subclavian A/P Problem List: (1) Respiratory failure Status: Acute Plan: - Pt presented with respiratory failure requiring intubation and pressor support. - History is unclear. She was at a nursing facility due to right wrist fx, but pt can't give clear hx of events leading up to her decline. - It is speculated that she had aspiration PNA in the setting of leukocytosis and basilar infiltrated R>L, but she also was found to have elevated troponin and was diuresed in ICU with improvement in cxr. - Pt has been on broad spectrum abx with Zosyn and Azithromycin since 08/11. - 2D echo with noted systolic CHF with EF of 40%, mod/severe mitral stenosis, severe TR and pulmonary HTN. - Pt is currently on 2L via NC - Blood cultures (08/11/16) with NGTD - Sputum culture (08/11/16) with heavy growth of normal respiratory sarah - Pt was transferred to med/surg floor on 08/16/16 - Pt required more supplemental O2 on 08/19 - CXR (08/19) --> The right-sided central line appears to have advanced and is now crossing midline and directed inferiorly within adjacent vessel. Persistent bibasilar airspace opacities and layering pleural effusions. - Pt was given Lasix 40mg IV x one dose on 08/19 - Repeat CXR (08/20) --> Mild to moderate left effusion. There is a small right effusion, diffuse increase interstitial markings representing diffuse processes such as edema, increased density at the bases especially on the left representing some degree of superimposed atelectasis or consolidation and right subclavian line with its tip draped into the left innominate vein region. - We will schedule Lasix 20mg IV BID and potassium 20mg po daily - Recheck labs and CXR in AM - Monitor vitals closely - ST following, pt is on mechanical soft diet. - PT daily - DVT prophylaxis (2) Tachyarrhythmia Status: Acute Plan: - On 08/17 pt was having issues with tachyarrhythmia on telemetry, and appeared to be in a tachy arrhythmia with HR in the 130-150s at times. No hx of A. fib. TSH on 08/11 was 1.250 - Pt was started on Metoprolol 25mg Q8H, on 08/17. HR remained elevated until the afternoon on 08/18. Her HR improved into the 60-70s but is irregular - EKG (08/18) --> sinus rhythm with marked sinus arrhythmia, LBBB - Metoprolol changed to 50mg Q12H on 08/18, HR more stable. - Holter monitor with sinus rhythm with frequent PACs and PVCs, brief runs of nonsustained atrial tachycardia. (3) Hyperthyroidism Status: Chronic Plan: - Home meds continued - TSH on 08/11/16 was 1.250 (4) Hyperlipidemia Status: Acute Plan: - Home meds continued Assessment and Plan Patient examined. Assessment and plan formulated with Kiki Pang PA-C. I agree with the above. Problem Qualifiers (1) Respiratory failure: Qualified Code: J96.01 - Acute respiratory failure with hypoxia Kiki Pang Aug 20, 2016 17:03 Matt Henao DO Aug 27, 2016 22:26
[2016-08-20] MEDS ORDERED: ALTEPLASE RECOMBINANT 2 MG VIAL OTHER ONE (17:30)
[2016-08-20] MEDS ORDERED: PICC PRN Heparin 100 units/ml Lock Flush IVF (17:30)
[2016-08-20] MEDS ORDERED: PICC PRN NS Lock Flush IVF (17:30)
[2016-08-20] MEDS ORDERED: PICC PRN After Blood Draw NS Lock Flush IVF (17:30)
[2016-08-20] MEDS ORDERED: FUROSEMIDE 20 MG/2 ML VIAL IV PUSH SCH (18:00)
[2016-08-20] MEDS ORDERED: POTASSIUM CHLORIDE 10 MEQ CAP PO ONE (18:00)
[2016-08-20] MEDS: CHLORHEXIDINE 0.12% (ORAL KIT) 15 ML CUP MT SCH (20:00)
[2016-08-20] MEDS: ATORVASTATIN 20 MG TAB PO SCH (21:10)
[2016-08-21] VITALS (9 sets, daily range): BP systolic 118–151; BP diastolic 59–69; PULSE 58–87; RESP 16–18; TEMP 96.7–98.5; O2SAT 95–99
[2016-08-21] MEDS: HEPARIN SODIUM - SQ 10,000 UNITS/ML VIAL SQ SCH ×3 (00:20→22:36)
[2016-08-21] MEDS: CHLORHEXIDINE GLUCONATE 2 % 1 PACK (2 CLOTHS) TOP SCH (04:00)
[2016-08-21 06:44] LABS: HEMATOCRIT 38.1 % (35.0-46.0); MEAN CELL VOLUME 85.8 FL (80.0-100.0); MEAN CORPUSCULAR HEMOGLOBIN 27.9 PG (27.0-34.0); MEAN CORPUSCULAR HGB CONC 32.5 % (32.0-36.0); PLATELET COUNT 323 TH/MM3 (150-450); RED BLOOD COUNT 4.44 MIL/MM3 (4.00-5.30); RED CELL DISTRIBUTION WIDTH 14.8 % (11.6-17.2); REVIEW FLAG FINAL
[2016-08-21] MEDS: INSULIN ASPART SUPPLEMENTAL SCALE SQ SCH ×4 (07:00→21:00)
[2016-08-21 07:09] LABS: BICARBONATE 31.6 MEQ/L (21.0-32.0); MAGNESIUM 2.1 MG/DL (1.5-2.5); POTASSIUM 3.9 MEQ/L (3.5-5.1)
[2016-08-21] MEDS: RESP: ALBUTEROL 2.5 MG/IPRATROPIUM 0.5 MG NEB (SCH) NEB ×2 (07:36→19:30)
[2016-08-21] MEDS: CHLORHEXIDINE 0.12% (ORAL KIT) 15 ML CUP MT SCH ×2 (08:00→20:00)
--- NOTE | 2016-08-21 08:57 | HHI.PR ---
Subjective Remarks I saw pt earlier this AM around 6:45. She reports feeling better and less SOB. NO f/c. Tolerating oral intake, but not a great appetite. +BM and good UOP. Objective Vitals Vital Signs Date Time Temp Pulse Resp B/P Pulse Ox O2 Delivery O2 Flow Rate FiO2 08/21/16 08:00 97.3 77 17 151/66 98 08/21/16 07:36 99 Nasal Cannula 2.00 08/21/16 04:00 98.0 58 18 119/65 95 08/21/16 00:00 97.3 87 18 120/62 98 08/20/16 21:40 97.1 78 19 114/56 97 08/20/16 16:00 97.6 78 18 117/51 95 08/20/16 15:47 97 Nasal Cannula 2.00 08/20/16 12:00 96.8 72 18 122/61 97 08/20/16 09:00 69 08/20/16 08/20/16 08/21/16 15:00 23:00 07:00 Intake Total 840 ml 200 ml Balance 840 ml 200 ml Intake Oral 840 ml 200 ml # Voids 6 7 1 # Bowel Movements 1 2 4 GENERAL: a/o, NAD, pleasant, cooperative with exam SKIN: Warm and dry. HEAD: Normocephalic. EYES: No scleral icterus. No injection or drainage. NECK: Supple, trachea midline. No JVD or lymphadenopathy. CARDIOVASCULAR: Regular rate and rhythm, 2/6 RAYO RESPIRATORY: Breath sounds equal bilaterally. No accessory muscle use. No wheeze or crackle GASTROINTESTINAL: Abdomen soft, non-tender, nondistended. BS wnl. MUSCULOSKELETAL: No cyanosis, or edema. Right arm with support brace in place. Moves all fingers/toes. SCDs in place bilat LE BACK: No CVA tenderness. Result Diagram: 08/21/1651408/21/16514 Imaging Last Impressions Chest X-Ray 08/20/16 0600 Signed Impressions: Service Date/Time: August 07:49 - CONCLUSION: 1. Mild to moderate left effusion. There is a small right effusion. 2. Diffuse increase interstitial markings representing diffuse processes such as edema. 3. Increased density at the bases especially on the left representing some degree of superimposed atelectasis or consolidation. 4. Right subclavian line with its tip draped into the left innominate vein region. Sanju Meyer MD Last Impressions Chest X-Ray 08/19/16 0000 Signed Impressions: Service Date/Time: Friday, August 19, 2016 13:53 - CONCLUSION: 1. The right-sided central line appears to have advanced and is now crossing midline and directed inferiorly within adjacent vessel. Recommend repositioning. 2. Persistent bibasilar airspace opacities and layering pleural effusions. Given the cardiomegaly this may represent stable congestive heart failure and pulmonary edema. Liane Garcia MD Last Impressions Chest X-Ray 08/14/16 0000 Signed Impressions: Service Date/Time: Sunday, August 14, 2016 08:01 - CONCLUSION: Improvement as described above. Eloy Hair MD FACR Objective Remarks General: NAD, awake, alert Chest: Coarse breath sounds at the bases Cardiac: Irregular Abd: +BS, soft ND/NT Ext: no edema Procedures 2D echo (08/15/16): - Estimated ejection fraction was in the range of 40% to 45%. - Diffuse hypokinesis. - Moderate to severe mitral stenosis with mild regurgitation. Mean gradient: 11mm Hg (D). Valve area by pressure half-time: 1.53cm^2. - Left atrium moderately dilated. - Moderate-severe tricuspid regurgitation. - PA peak pressure: 56mm Hg (S). - Left pleural effusion. Urinary Catheter: No Date of Insertion: Aug 11, 2016 Vascular Central Line Catheter: Yes Assessment to: Continue Date of Insertion: Aug 11, 2016 Line: Central Venous Catheter Side: Right Location: Subclavian A/P Problem List: (1) Respiratory failure Status: Acute Plan: - Pt presented with respiratory failure requiring intubation and pressor support. - It is speculated that she had aspiration PNA in the setting of leukocytosis and basilar infiltrated R>L, but she also was found to have elevated troponin and was diuresed in ICU with improvement in cxr. - Pt has been on broad spectrum abx with Zosyn and Azithromycin since 08/11. - 2D echo with noted systolic CHF with EF of 40%, mod/severe mitral stenosis, severe TR and pulmonary HTN. - Pt is currently on 2L via NC and resp status improved after lasix admin. - Blood cultures (08/11/16) with NGTD - Sputum culture (08/11/16) with heavy growth of normal respiratory sarah - Pt was transferred to med/surg floor on 08/16/16 - Pt required more supplemental O2 on 08/19 - Repeat CXR (08/20) --> Mild to moderate left effusion. There is a small right effusion, diffuse increase interstitial markings representing diffuse processes such as edema, increased density at the bases especially on the left representing some degree of superimposed atelectasis or consolidation and right subclavian line with its tip draped into the left innominate vein region. - We will schedule Lasix 20mg IV BID and potassium 20mg po daily - Doing better from resp standpoint as noted. - ST following, pt is on mechanical soft diet. - PT daily - DVT prophylaxis (2) Tachyarrhythmia Status: Acute Plan: - On 08/17 pt was having issues with tachyarrhythmia on telemetry, and appeared to be in a tachy arrhythmia with HR in the 130-150s at times. No hx of A. fib. TSH on 08/11 was 1.250 - Pt was started on Metoprolol 25mg Q8H, on 08/17. - EKG (08/18) --> sinus rhythm with marked sinus arrhythmia, LBBB - Metoprolol changed to 50mg Q12H on 08/18, HR more stable. - Holter monitor with sinus rhythm with frequent PACs and PVCs, brief runs of nonsustained atrial tachycardia. (3) Hyperthyroidism Status: Chronic Plan: - Home meds continued - TSH on 08/11/16 was 1.250 (4) Hyperlipidemia Status: Acute Plan: - Home meds continued Discharge Planning hopefully d/c to rehab in 2-3 days depending on progress in home. Discussed with daughter, Clarissa and with Dr Henao. Problem Qualifiers (1) Respiratory failure: Qualified Code: J96.01 - Acute respiratory failure with hypoxia Duane Black PhD MD Aug 21, 2016 08:57
[2016-08-21] MEDS: SODIUM CHLORIDE 0.9% FLUSH 5 ML FLUSH IV FLUSH SCH ×2 (09:18→21:00)
[2016-08-21] MEDS: ARTIFICIAL TEARS OPTH SOLN 15 ML BTL EACH EYE SCH ×3 (09:18→18:00)
[2016-08-21] MEDS: PICC Daily NS Lock Flush IVF SCH (09:19)
[2016-08-21] MEDS: DOCUSATE SODIUM 100 MG/10 ML UDC G-TUBE SCH ×2 (09:19→22:36)
[2016-08-21] MEDS: PICC Daily Heparin 100 unit/mL Lock Flush IVF SCH (09:20)
[2016-08-21] MEDS: PANTOPRAZOLE SOD 40 MG DELAYED RELEASE TAB PO SCH (09:21)
[2016-08-21] MEDS: METOPROLOL TARTRATE 50 MG TAB PO SCH ×2 (09:21→22:36)
[2016-08-21] MEDS: POTASSIUM CHLORIDE 20 MEQ CONTROLLED RELEASE TAB PO SCH (09:21)
[2016-08-21] MEDS: METHIMAZOLE 10 MG TAB PO SCH (09:21)
[2016-08-21] MEDS: MULTIVITAMINS/MINERALS THERAPEUTIC TAB PO SCH (09:21)
[2016-08-21] MEDS: CALCIUM/VITAMIN D 250 MG/125 U TAB PO SCH ×2 (09:21→22:36)
--- NOTE | 2016-08-21 09:41 | RADRPT ---
EXAM DATE/TIME: 08/21/2016 08:44 [facility] COMPARISON: CHEST PA & LAT, August 20, 2016, 7:49. INDICATIONS: Shortness of breath and cough. MEDICAL HISTORY: Diabetes mellitus type II. SURGICAL HISTORY: None. ENCOUNTER: Subsequent ACUITY: 1 week PAIN SCORE: 0/10 LOCATION: Bilateral chest FINDINGS: Central line is unchanged in position. There is interval improvement with less interstitial edema. Right lung is clearing nicely. Minimal consolidative changes persist in the left base. CONCLUSION: 1. Interval improvement. 2. Minimal consolidative changes persisting, left base. Eloy Hair MD FACR on August 21, 2016 at 9:19 Board Certified Radiologist. This report was verified electronically.
[2016-08-21] MEDS: FUROSEMIDE 20 MG TAB PO SCH ×2 (10:51→18:17)
[2016-08-21] MEDS: ATORVASTATIN 20 MG TAB PO SCH (22:37)
[2016-08-22] VITALS (11 sets, daily range): BP systolic 97–128; BP diastolic 44–154; PULSE 68–87; RESP 16–20; TEMP 96.3–98.7; O2SAT 95–99
[2016-08-22] MEDS: CHLORHEXIDINE GLUCONATE 2 % 1 PACK (2 CLOTHS) TOP SCH (04:00)
[2016-08-22] MEDS: INSULIN ASPART SUPPLEMENTAL SCALE SQ SCH ×4 (07:00→20:28)
[2016-08-22 07:45] LABS: POTASSIUM 3.7 MEQ/L (3.5-5.1)
[2016-08-22] MEDS: RESP: ALBUTEROL 2.5 MG/IPRATROPIUM 0.5 MG NEB (SCH) NEB ×2 (08:00→19:40)
[2016-08-22] MEDS: CHLORHEXIDINE 0.12% (ORAL KIT) 15 ML CUP MT SCH ×2 (08:00→20:00)
[2016-08-22] MEDS: ARTIFICIAL TEARS OPTH SOLN 15 ML BTL EACH EYE SCH ×3 (09:00→18:00)
[2016-08-22] MEDS: PICC Daily NS Lock Flush IVF SCH (09:00)
[2016-08-22] MEDS: METOPROLOL TARTRATE 50 MG TAB PO SCH ×2 (09:03→20:25)
[2016-08-22] MEDS: PANTOPRAZOLE SOD 40 MG DELAYED RELEASE TAB PO SCH (09:03)
[2016-08-22] MEDS: METHIMAZOLE 10 MG TAB PO SCH (09:03)
[2016-08-22] MEDS: MULTIVITAMINS/MINERALS THERAPEUTIC TAB PO SCH (09:03)
[2016-08-22] MEDS: POTASSIUM CHLORIDE 20 MEQ CONTROLLED RELEASE TAB PO SCH (09:03)
[2016-08-22] MEDS: CALCIUM/VITAMIN D 250 MG/125 U TAB PO SCH ×2 (09:03→20:25)
[2016-08-22] MEDS: FUROSEMIDE 20 MG TAB PO SCH ×2 (09:04→18:05)
[2016-08-22] MEDS: PICC Daily Heparin 100 unit/mL Lock Flush IVF SCH (09:04)
[2016-08-22] MEDS: DOCUSATE SODIUM 100 MG/10 ML UDC G-TUBE SCH ×2 (09:04→20:25)
[2016-08-22] MEDS: SODIUM CHLORIDE 0.9% FLUSH 5 ML FLUSH IV FLUSH SCH ×2 (09:04→20:28)
[2016-08-22 09:53] LABS: BACTERIA, URINE OCC /hpf; BLOOD, URINE NEG (NEG); CALCIUM OXALATE CRYSTALS,URINE FEW /hpf; COMMENT (UR) CULTURE INDICATED; CULTURE IF INDICATED CULTURE INDICATED; GLUCOSE,URINE NEG (NEG); HYALINE CAST, URINE 3 /lpf (RARE); KETONE, URINE NEG (NEG); MUCUS URINE FEW /lpf (OCC); NITRITE,URINE NEG (NEG); PH, URINE 7.5 (5.0-8.5); SQUAMOUS EPITHELIAL CELL URINE 4 /hpf (0-5); TRANSITIONAL EPI CELLS, URINE <1 /hpf; URINE COLOR YELLOW (YELLW/STRAW)
[2016-08-22] MEDS: HEPARIN SODIUM - SQ 10,000 UNITS/ML VIAL SQ SCH ×2 (10:50→23:56)
--- NOTE | 2016-08-22 19:07 | HHI.PR ---
Subjective Remarks No new complaints. Nursing reports that pt is eating well. Objective Vitals Vital Signs Date Time Temp Pulse Resp B/P Pulse Ox O2 Delivery O2 Flow Rate FiO2 08/22/16 16:00 Nasal Cannula 2.00 08/22/16 15:20 96.3 73 20 103/46 96 08/22/16 14:46 96.6 72 20 102/49 98 08/22/16 11:55 82 08/22/16 11:35 97.2 83 20 97/44 99 08/22/16 11:06 95 Nasal Cannula 2.00 08/22/16 07:30 96.8 87 20 128/69 96 08/22/16 05:01 97.1 71 20 123/58 96 08/22/16 00:05 98.1 68 17 113/154 95 08/21/16 20:33 97.3 84 18 118/66 95 08/21/16 19:30 96 Nasal Cannula 2.00 08/21/16 08/21/16 08/22/16 15:00 23:00 07:00 # Voids 5 Result Diagram: 08/21/16 0515 08/22/16 0615 Imaging Last Impressions Chest X-Ray 08/21/16 0600 Signed Impressions: Service Date/Time: Sunday, August 21, 2016 08:44 - CONCLUSION: 1. Interval improvement. 2. Minimal consolidative changes persisting, left base. Eloy Hair MD FACR Objective Remarks General: NAD, awake, alert Chest: Coarse breath sounds at the bases Cardiac: Irregular Abd: +BS, soft ND/NT Ext: no edema Procedures 2D echo (08/15/16): - Estimated ejection fraction was in the range of 40% to 45%. - Diffuse hypokinesis. - Moderate to severe mitral stenosis with mild regurgitation. Mean gradient: 11mm Hg (D). Valve area by pressure half-time: 1.53cm^2. - Left atrium moderately dilated. - Moderate-severe tricuspid regurgitation. - PA peak pressure: 56mm Hg (S). - Left pleural effusion. Date of Insertion: Aug 11, 2016 Date of Insertion: Aug 11, 2016 Line: Central Venous Catheter Side: Right Location: Subclavian A/P Problem List: (1) Respiratory failure Status: Acute Plan: - Pt presented with respiratory failure requiring intubation and pressor support. - It is speculated that she had aspiration PNA in the setting of leukocytosis and basilar infiltrated R>L, but she also was found to have elevated troponin and was diuresed in ICU with improvement in cxr. - Pt has been on broad spectrum abx with Zosyn and Azithromycin since 08/11. - 2D echo with noted systolic CHF with EF of 40%, mod/severe mitral stenosis, severe TR and pulmonary HTN. - Pt is currently on 2L via NC and resp status improved after lasix admin. - Blood cultures (08/11/16) with NGTD - Sputum culture (08/11/16) with heavy growth of normal respiratory sarah - Pt was transferred to med/surg floor on 08/16/16 - Pt required more supplemental O2 on 08/19 - Repeat CXR (08/20) --> Mild to moderate left effusion. There is a small right effusion, diffuse increase interstitial markings representing diffuse processes such as edema, increased density at the bases especially on the left representing some degree of superimposed atelectasis or consolidation and right subclavian line with its tip draped into the left innominate vein region. - Doing better from resp standpoint as noted. - ST following, pt is on mechanical soft diet. - PT daily - believe pt is somewhat over diuresed, will change lasix to daily (hold for now ) - repeat BMP in AM - anticipate d/c to SNF in 1-2 days - DVT prophylaxis (2) Tachyarrhythmia Status: Acute Plan: - On 08/17 pt was having issues with tachyarrhythmia on telemetry, and appeared to be in a tachy arrhythmia with HR in the 130-150s at times. No hx of A. fib. TSH on 08/11 was 1.250 - Pt was started on Metoprolol 25mg Q8H, on 08/17. - EKG (08/18) --> sinus rhythm with marked sinus arrhythmia, LBBB - Metoprolol changed to 50mg Q12H on 08/18, HR more stable. - Holter monitor with sinus rhythm with frequent PACs and PVCs, brief runs of nonsustained atrial tachycardia. (3) Hyperthyroidism Status: Chronic Plan: - Home meds continued - TSH on 08/11/16 was 1.250 (4) Hyperlipidemia Status: Acute Plan: - Home meds continued Problem Qualifiers (1) Respiratory failure: Qualified Code: J96.01 - Acute respiratory failure with hypoxia Matt Henao DO Aug 22, 2016 19:07
[2016-08-22] MEDS: ATORVASTATIN 20 MG TAB PO SCH (20:25)
[2016-08-23] VITALS (8 sets, daily range): BP systolic 106–135; BP diastolic 52–71; PULSE 61–80; RESP 16–20; TEMP 97.7–98.8; O2SAT 92–97
[2016-08-23] MEDS: CHLORHEXIDINE GLUCONATE 2 % 1 PACK (2 CLOTHS) TOP SCH (04:00)
[2016-08-23] MEDS: INSULIN ASPART SUPPLEMENTAL SCALE SQ SCH ×4 (06:05→20:39)
[2016-08-23 06:08] LABS: BICARBONATE 33.8 MEQ/L (21.0-32.0); POTASSIUM 3.9 MEQ/L (3.5-5.1)
[2016-08-23] MEDS: DOCUSATE SODIUM 100 MG/10 ML UDC G-TUBE SCH ×2 (07:05→20:37)
[2016-08-23] MEDS: CHLORHEXIDINE 0.12% (ORAL KIT) 15 ML CUP MT SCH ×2 (08:00→20:00)
[2016-08-23] MEDS: METOPROLOL TARTRATE 50 MG TAB PO SCH ×2 (08:15→20:36)
[2016-08-23] MEDS: PICC Daily Heparin 100 unit/mL Lock Flush IVF SCH (08:15)
[2016-08-23] MEDS: MULTIVITAMINS/MINERALS THERAPEUTIC TAB PO SCH (08:15)
[2016-08-23] MEDS: CALCIUM/VITAMIN D 250 MG/125 U TAB PO SCH ×2 (08:15→20:36)
[2016-08-23] MEDS: POTASSIUM CHLORIDE 20 MEQ CONTROLLED RELEASE TAB PO SCH (08:15)
[2016-08-23] MEDS: METHIMAZOLE 10 MG TAB PO SCH (08:15)
[2016-08-23] MEDS: PANTOPRAZOLE SOD 40 MG DELAYED RELEASE TAB PO SCH (08:16)
[2016-08-23] MEDS: PICC Daily NS Lock Flush IVF SCH (08:19)
[2016-08-23] MEDS: SODIUM CHLORIDE 0.9% FLUSH 5 ML FLUSH IV FLUSH SCH ×2 (08:19→20:36)
[2016-08-23] MEDS: ARTIFICIAL TEARS OPTH SOLN 15 ML BTL EACH EYE SCH ×3 (08:20→15:38)
[2016-08-23] MEDS ORDERED: FUROSEMIDE 20 MG TAB PO SCH (09:00)
[2016-08-23] MEDS: HEPARIN SODIUM - SQ 10,000 UNITS/ML VIAL SQ SCH ×2 (11:24→23:28)
--- NOTE | 2016-08-23 15:06 | HHI.PR ---
Subjective Remarks No new complaints. Objective Vitals Vital Signs Date Time Temp Pulse Resp B/P Pulse Ox O2 Delivery O2 Flow Rate FiO2 08/23/16 12:00 98.2 80 19 135/71 96 08/23/16 11:03 92 Nasal Cannula 2.00 08/23/16 08:00 98.1 75 17 130/61 97 08/23/16 04:00 98.8 61 16 130/60 94 08/22/16 20:00 98.7 78 16 115/58 95 08/22/16 19:41 96 Nasal Cannula 2.00 08/22/16 19:00 73 08/22/16 16:00 Nasal Cannula 2.00 08/22/16 15:20 96.3 73 20 103/46 96 08/22/16 08/22/16 08/23/16 15:00 23:00 07:00 Intake Total 240 ml Balance 240 ml Intake Oral 240 ml # Voids 8 4 # Bowel Movements 3 Result Diagram: 08/21/16 0515 08/23/16 0535 Imaging Last Impressions Chest X-Ray 08/21/16 0600 Signed Impressions: Service Date/Time: Sunday, August 21, 2016 08:44 - CONCLUSION: 1. Interval improvement. 2. Minimal consolidative changes persisting, left base. Eloy Hair MD FACR Objective Remarks General: NAD, awake, alert Chest: Coarse breath sounds at the bases Cardiac: Irregular Abd: +BS, soft ND/NT Ext: no edema Procedures 2D echo (08/15/16): - Estimated ejection fraction was in the range of 40% to 45%. - Diffuse hypokinesis. - Moderate to severe mitral stenosis with mild regurgitation. Mean gradient: 11mm Hg (D). Valve area by pressure half-time: 1.53cm^2. - Left atrium moderately dilated. - Moderate-severe tricuspid regurgitation. - PA peak pressure: 56mm Hg (S). - Left pleural effusion. Date of Insertion: Aug 11, 2016 Date of Insertion: Aug 11, 2016 Line: Central Venous Catheter Side: Right Location: Subclavian A/P Problem List: (1) Respiratory failure Status: Acute Plan: - Pt presented with respiratory failure requiring intubation and pressor support. - It is speculated that she had aspiration PNA in the setting of leukocytosis and basilar infiltrated R>L, but she also was found to have elevated troponin and was diuresed in ICU with improvement in cxr. - Pt has been on broad spectrum abx with Zosyn and Azithromycin since 08/11. - 2D echo with noted systolic CHF with EF of 40%, mod/severe mitral stenosis, severe TR and pulmonary HTN. - Pt is currently on 2L via NC and resp status improved after lasix admin. - Blood cultures (08/11/16) with NGTD - Sputum culture (08/11/16) with heavy growth of normal respiratory sarah - Pt was transferred to med/surg floor on 08/16/16 - Pt required more supplemental O2 on 08/19 - Repeat CXR (08/20) --> Mild to moderate left effusion. There is a small right effusion, diffuse increase interstitial markings representing diffuse processes such as edema, increased density at the bases especially on the left representing some degree of superimposed atelectasis or consolidation and right subclavian line with its tip draped into the left innominate vein region. - Doing better from resp standpoint as noted. - ST following, pt is on mechanical soft diet. - PT daily - believe pt is somewhat over diuresed, will change lasix to daily (hold for now ) - hypernatremia improving today (08/23/16) Na 146 - repeat BMP in AM - anticipate d/c to SNF 08/24/16 if labs have normalized and pt remains stable - DVT prophylaxis (2) Tachyarrhythmia Status: Acute Plan: - On 08/17 pt was having issues with tachyarrhythmia on telemetry, and appeared to be in a tachy arrhythmia with HR in the 130-150s at times. No hx of A. fib. TSH on 08/11 was 1.250 - Pt was started on Metoprolol 25mg Q8H, on 08/17. - EKG (08/18) --> sinus rhythm with marked sinus arrhythmia, LBBB - Metoprolol changed to 50mg Q12H on 08/18, HR more stable. - Holter monitor with sinus rhythm with frequent PACs and PVCs, brief runs of nonsustained atrial tachycardia. (3) Hyperthyroidism Status: Chronic Plan: - Home meds continued - TSH on 08/11/16 was 1.250 (4) Hyperlipidemia Status: Acute Plan: - Home meds continued Problem Qualifiers (1) Respiratory failure: Qualified Code: J96.01 - Acute respiratory failure with hypoxia Matt Henao DO Aug 23, 2016 15:06
[2016-08-23] MEDS: ATORVASTATIN 20 MG TAB PO SCH (20:36)
[2016-08-24] MEDS: CHLORHEXIDINE GLUCONATE 2 % 1 PACK (2 CLOTHS) TOP SCH (03:50)
[2016-08-24 04:57] VITALS: BP 113/58; PULSE 69; RESP 20; TEMP 96.6; O2SAT 94
[2016-08-24] MEDS: INSULIN ASPART SUPPLEMENTAL SCALE SQ SCH ×2 (05:46→11:00)
[2016-08-24 07:00] VITALS: PULSE 67
[2016-08-24 08:00] VITALS: BP 117/58; PULSE 67; RESP 16; TEMP 95.2; O2SAT 93
[2016-08-24] MEDS: CHLORHEXIDINE 0.12% (ORAL KIT) 15 ML CUP MT SCH (08:00)
[2016-08-24 09:00] LABS: BICARBONATE 31.8 MEQ/L (21.0-32.0); POTASSIUM 4.2 MEQ/L (3.5-5.1)
[2016-08-24] MEDS: SODIUM CHLORIDE 0.9% FLUSH 5 ML FLUSH IV FLUSH SCH (09:00)
[2016-08-24] MEDS: PICC Daily NS Lock Flush IVF SCH (09:00)
[2016-08-24] MEDS: ARTIFICIAL TEARS OPTH SOLN 15 ML BTL EACH EYE SCH (09:00)
[2016-08-24] MEDS: HEPARIN SODIUM - SQ 10,000 UNITS/ML VIAL SQ SCH (10:25)
[2016-08-24] MEDS: DOCUSATE SODIUM 100 MG/10 ML UDC G-TUBE SCH (10:25)
[2016-08-24] MEDS: MULTIVITAMINS/MINERALS THERAPEUTIC TAB PO SCH (10:25)
[2016-08-24] MEDS: METHIMAZOLE 10 MG TAB PO SCH (10:26)
[2016-08-24] MEDS: CALCIUM/VITAMIN D 250 MG/125 U TAB PO SCH (10:26)
[2016-08-24] MEDS: PANTOPRAZOLE SOD 40 MG DELAYED RELEASE TAB PO SCH (10:26)
[2016-08-24] MEDS: POTASSIUM CHLORIDE 20 MEQ CONTROLLED RELEASE TAB PO SCH (10:26)
[2016-08-24] MEDS: PICC Daily Heparin 100 unit/mL Lock Flush IVF SCH (10:36)
[2016-08-24 12:29] VITALS: BP 125/56; PULSE 72; RESP 16; TEMP 96.1; O2SAT 93
--- NOTE | 2016-08-24 12:56 | HHI.PR ---
Subjective Remarks eager for d/c feels fine. Objective Vitals heart reg lung good air entry abd s/nt ext no edema Vital Signs Date Time Temp Pulse Resp B/P Pulse Ox O2 Delivery O2 Flow Rate FiO2 08/24/16 12:29 96.1 72 16 125/56 93 08/24/16 08:00 95.2 67 16 117/58 93 08/24/16 04:57 96.6 69 20 113/58 94 08/23/16 23:55 97.7 70 17 106/55 95 08/23/16 20:44 Nasal Cannula 2.00 08/23/16 20:38 97.7 68 20 109/52 97 08/23/16 19:00 75 08/23/16 16:00 98.6 61 19 114/63 96 08/23/16 08/23/16 08/24/16 15:00 23:00 07:00 Intake Total 240 ml Balance 240 ml Intake Oral 240 ml # Voids 5 0 # Bowel Movements 2 0 Result Diagram: 08/21/16 0515 08/24/16 0810 Imaging Last Impressions Chest X-Ray 08/21/16 0600 Signed Impressions: Service Date/Time: Sunday, August 21, 2016 08:44 - CONCLUSION: 1. Interval improvement. 2. Minimal consolidative changes persisting, left base. Eloy Hair MD FACR Procedures 2D echo (08/15/16): - Estimated ejection fraction was in the range of 40% to 45%. - Diffuse hypokinesis. - Moderate to severe mitral stenosis with mild regurgitation. Mean gradient: 11mm Hg (D). Valve area by pressure half-time: 1.53cm^2. - Left atrium moderately dilated. - Moderate-severe tricuspid regurgitation. - PA peak pressure: 56mm Hg (S). - Left pleural effusion. Date of Insertion: Aug 11, 2016 Date of Insertion: Aug 11, 2016 Line: Central Venous Catheter Side: Right Location: Subclavian A/P Problem List: (1) Respiratory failure Status: Acute Plan: - Pt presented with respiratory failure requiring intubation and pressor support. - It is speculated that she had aspiration PNA in the setting of leukocytosis and basilar infiltrated R>L, but she also was found to have elevated troponin and was diuresed in ICU with improvement in cxr. - Pt has been on broad spectrum abx with Zosyn and Azithromycin since 08/11. - 2D echo with noted systolic CHF with EF of 40%, mod/severe mitral stenosis, severe TR and pulmonary HTN. - Pt is currently on 2L via NC and resp status improved after lasix admin. - Blood cultures (08/11/16) with NGTD - Sputum culture (08/11/16) with heavy growth of normal respiratory sarah - Pt was transferred to med/surg floor on 08/16/16 - Pt required more supplemental O2 on 08/19 - Repeat CXR (08/20) --> Mild to moderate left effusion. There is a small right effusion, diffuse increase interstitial markings representing diffuse processes such as edema, increased density at the bases especially on the left representing some degree of superimposed atelectasis or consolidation and right subclavian line with its tip draped into the left innominate vein region. - Doing better from resp standpoint as noted. - ST following, pt is on mechanical soft diet. - PT daily - lasix lowered for overdiureses d/c to snf (2) Tachyarrhythmia Status: Acute Plan: - On 08/17 pt was having issues with tachyarrhythmia on telemetry, and appeared to be in a tachy arrhythmia with HR in the 130-150s at times. No hx of A. fib. TSH on 08/11 was 1.250 - Pt was started on Metoprolol 25mg Q8H, on 08/17. - EKG (08/18) --> sinus rhythm with marked sinus arrhythmia, LBBB - Metoprolol changed to 50mg Q12H on 08/18, HR more stable. - Holter monitor with sinus rhythm with frequent PACs and PVCs, brief runs of nonsustained atrial tachycardia. (3) Hyperthyroidism Status: Chronic Plan: - Home meds continued - TSH on 08/11/16 was 1.250 (4) Hyperlipidemia Status: Acute Plan: - Home meds continued Problem Qualifiers (1) Respiratory failure: Qualified Code: J96.01 - Acute respiratory failure with hypoxia Dio Wade MD Aug 24, 2016 12:56
--- NOTE | 2016-08-24 12:57 | HHI.DCPOC ---
Discharge Care Plan Diagnosis: (1) Aspiration pneumonia (2) Respiratory failure (3) Tachyarrhythmia Goals to Promote Your Health * To prevent worsening of your condition and complications * To maintain your health at the optimal level Directions to Meet Your Goals Take your medications as prescribed Follow your dietary instruction Follow activity as directed Keep your appointments as scheduled Take your immunizations and boosters as scheduled If your symptoms worsen call your PCP, if no PCP go to Urgent Care Center or Emergency Room Smoking is Dangerous to Your Health. Avoid second hand smoke Call the 24-hour hour crisis hotline for domestic abuse at Dio Wade MD Aug 24, 2016 12:57
[2016-08-24] MEDS ORDERED: NORC5TAB PO (13:01)
[2016-08-24] MEDS ORDERED: POTA20TA5 PO (13:01)
[2016-08-24] MEDS ORDERED: FURO1TAB62 PO (13:01)
[2016-08-24] MEDS ORDERED: METO-309 PO (13:01)
[2016-08-24 16:00] VITALS: BP 107/60; PULSE 68; RESP 17; TEMP 96.5; O2SAT 93
--- NOTE | 2016-08-30 15:48 | HHI.DS ---
Discharge Summary Admission Date Aug 11, 2016 at 08:44 Discharge Date: Aug 24, 2016 Admitting Diagnosis respiratory failure, sepsis, aspiration pneumonia, UTI (1) Respiratory failure Diagnosis: Principal (2) Tachyarrhythmia Diagnosis: Principal (3) Aspiration pneumonia Diagnosis: Principal (4) Hyperthyroidism Diagnosis: Secondary (5) Hyperlipidemia Diagnosis: Secondary Procedures 2D echo (08/15/16): - Estimated ejection fraction was in the range of 40% to 45%. - Diffuse hypokinesis. - Moderate to severe mitral stenosis with mild regurgitation. Mean gradient: 11mm Hg (D). Valve area by pressure half-time: 1.53cm^2. - Left atrium moderately dilated. - Moderate-severe tricuspid regurgitation. - PA peak pressure: 56mm Hg (S). - Left pleural effusion. Hospital Course - Pt presented with respiratory failure requiring intubation and pressor support. - It is speculated that she had aspiration PNA in the setting of leukocytosis and basilar infiltrated R>L, but she also was found to have elevated troponin and was diuresed in ICU with improvement in cxr. - Pt has been on broad spectrum abx with Zosyn and Azithromycin since 08/11. - 2D echo with noted systolic CHF with EF of 40%, mod/severe mitral stenosis, severe TR and pulmonary HTN. - Pt is currently on 2L via [place] and resp status improved after lasix admin. - Blood cultures (08/11/16) with NGTD - Sputum culture (08/11/16) with heavy growth of normal respiratory sarah - Pt was transferred to med/surg floor on 08/16/16 - Doing better from resp standpoint as noted. - ST following, pt is on mechanical soft diet. - PT daily - lasix lowered for overdiureses -d/c to snf Pt Condition on Discharge: Stable Discharge Disposition: Discharge to SNF Discharge Instructions DIET: Follow Instructions for: As Tolerated, No Restrictions, Heart Healthy Diet, Soft Diet Speech Therapy-Diet Recommends: Pureed, [place] Thickened Liquids Activities you can perform: Regular-No Restrictions Follow up Referrals: PCP Follow-up - [address] santizo [facility]/ with [facility] New Medications: Furosemide (Lasix) 20 Mg Tab 20 MG PO EVERY OTHER DAY swelling #30 Ref 0 TAB Metoprolol Tartrate (Lopressor) 50 Mg Tab 50 MG PO Q12HR tachyarrhythmia #60 TAB Potassium Chloride Microencaps (Potassium Chloride Microencaps) 20 Meq Tab 20 MEQ PO EVERY OTHER DAY supplement #30 TAB Continued Medications: Atorvastatin (Atorvastatin) 20 Mg Tab 20 MG PO HS Cholesterol Management #30 Ref 0 TAB Calcium Carbonate-Vitamin D (Calcium 600 + D) 600-400 Mg-Unit Tab 1 TAB PO BID TAB Ergocalciferol (Vitamin D) 50,000 Unit Cap 57724 UNITS PO [id number] Nutritional Supplement #30 Ref 0 CAP Hydrocodone-Acetaminophen (Evans) 5-325 mg Tab 1 TAB PO Q6HR PRN PAIN #30 Ref 0 TAB (This prescription has been renewed) Methimazole (Methimazole) 10 Mg Tab 10 MG PO DAILY Thyroid #30 Ref 0 TAB Multiple Vitamins W/ Minerals (Multivitamin Adults) 1 Tab 1 TAB PO DAILY Nutritional Supplement Ref 0 TAB Omeprazole (Prilosec) 20 Mg Cap 20 MG PO DAILY #30 Ref 0 CAP Discontinued Medications: Alendronate (Fosamax) 70 Mg Tab 70 MG PO Q7D Osteoporosis Treatment #4 Ref 0 TAB Methocarbamol (Robaxin) 500 Mg Tab 500 MG PO TID Muscle Spasm Ref 0 TAB Dio Wade MD Aug 30, 2016 15:48
== END 2016-08-24 19:24 | DRG 208 ==
LOC: NEPC 07:17 → NEDA 08:44 → HIMW 16:15 → N05A 08-16 22:00
PROVIDERS: ADMIT Hospitalist; ATTEND Hospitalist
PROC: 5A1945Z Respiratory Ventilation, 24-96 Consecutive Hours (ICD-10-PCS; principal; 2016-08-11)
PROC: 0BH17EZ Insertion of Endotracheal Airway into Trachea, Via Natural or Artificial Opening (ICD-10-PCS; 2016-08-11)
PROC: 05H633Z Insertion of Infusion Device into Left Subclavian Vein, Percutaneous Approach (ICD-10-PCS; 2016-08-11)
DX: J96.01 Acute respiratory failure with hypoxia (principal); J69.0 Pneumonitis due to inhalation of food and vomit; E87.0 Hyperosmolality and hypernatremia; J44.9 Chronic obstructive pulmonary disease, unspecified; I50.20 Unspecified systolic (congestive) heart failure; I47.1 Supraventricular tachycardia; E83.39 Other disorders of phosphorus metabolism; I27.2 Other secondary pulmonary hypertension; J98.11 Atelectasis; E78.00 Pure hypercholesterolemia, unspecified; N28.9 Disorder of kidney and ureter, unspecified; K21.9 Gastro-esophageal reflux disease without esophagitis; R73.9 Hyperglycemia, unspecified; E05.90 Thyrotoxicosis, unspecified without thyrotoxic crisis or storm; M81.0 Age-related osteoporosis without current pathological fracture; M19.90 Unspecified osteoarthritis, unspecified site; F17.210 Nicotine dependence, cigarettes, uncomplicated; E78.5 Hyperlipidemia, unspecified; I08.1 Rheumatic disorders of both mitral and tricuspid valves; G89.29 Other chronic pain; I44.7 Left bundle-branch block, unspecified; M17.0 Bilateral primary osteoarthritis of knee; E87.6 Hypokalemia; S62.101D Fracture of unspecified carpal bone, right wrist, subsequent encounter for fracture with routine healing; X58.XXXD Exposure to other specified factors, subsequent encounter
CPT/HCPCS: 31500; 36556; 36600; 51702; 71010; 71020; 80048; 80053; 81001; 82435; 82550; 82565; 82805; 82947; 82948; 83605; 83735; 84100; 84132; 84295; 84439; 84443; 84484; 84520; 85025; 85027; 85610; 85730; 86850; 86900; 86901; 87040; 87070; 87086; 87205; 87641; 93005; 93225; 93226; 93306; 94002; 94003; 94150; 94640; 94664; 96374; C9113; C9399; J0330; J0456; J1642; J1644; J1815; J1940; J2250; J2370; J2543; J2997; J3010; J3475; J3480; J7030; J7050; J7060

== ENCOUNTER 2017-02-11 00:01 | Inpatient (IN) | payer MEDICARE ==
[2017-02-11] VITALS (11 sets, daily range): BP systolic 129–192; BP diastolic 63–84; PULSE 83–92; RESP 17–24; TEMP 95.9–98.8; O2SAT 92–98
[~2017-02-11] VITALS: Ht 167.6 cm; Wt 57.5 kg
[~2017-02-11 00:01] MED LIST changes: -ALEN35TA24 OR; +ATOR20TA15 PO; -ATOR20TA42 PO; -CALC-187 PO; +CALCTAB70 PO; +ERGO1CAP10 PO; -ERGO50000 PO; +FURO1TAB62 PO; -HYDR7.5T32 PO; -IBUP-232 PO; -LEVAQUIN; +METHI10 PO; +METO-309 PO; +MULT1TAB84 PO; +NORC5TAB PO; +POTA20TA5 PO; -PRIL20CA PO; +PRIL20CA9 PO; -TAB-TAB PO; -TAPA10TA2 PO
[2017-02-11] MEDS ORDERED: SODIUM CHLORIDE 0.9% FLUSH 10 ML FLUSH IV FLUSH PRN (01:15)
[2017-02-11] MEDS ORDERED: SODIUM CHLORID 0.9% 500 ML INJ 500 ML IV ONE (01:15)
[2017-02-11 02:16] LABS: AUTOMATED NEUTROPHIL # 19.8 TH/MM3 (1.8-7.7); BASOPHIL # 0.1 TH/MM3 (0-0.2); BASOPHIL % 0.3 % (0.0-2.0); EOSINOPHIL % 0.1 % (0.0-4.0); HEMATOCRIT 41.4 % (35.0-46.0); HEMO FLAGS DIFF FINAL; LYMPH % 2.6 % (9.0-44.0); LYMPHOCYTE # 0.5 TH/MM3 (1.0-4.8); MEAN CELL VOLUME 80.6 FL (80.0-100.0); MEAN CORPUSCULAR HEMOGLOBIN 25.5 PG (27.0-34.0); MEAN CORPUSCULAR HGB CONC 31.7 % (32.0-36.0); MONO % 2.1 % (0.0-8.0); NEUT % 94.9 % (16.0-70.0); PLATELET COUNT 338 TH/MM3 (150-450); RED BLOOD COUNT 5.14 MIL/MM3 (4.00-5.30); RED CELL DISTRIBUTION WIDTH 15.4 % (11.6-17.2); WHITE BLOOD COUNT 20.8 TH/MM3 (4.0-11.0)
[2017-02-11 02:20] LABS: ANION GAP 8 MEQ/L (5-15); AST (GOT) 12 U/L (15-37); BLOOD UREA NITROGEN 20 MG/DL (7-18); CHLORIDE 111 MEQ/L (98-107); GLOMERULAR FILTRATION RATE 57 ML/MIN (>89); SODIUM (NA) 144 MEQ/L (136-145)
[2017-02-11 02:23] LABS: ALKALINE PHOSPHATASE 66 U/L (45-117); ALT (GPT) 9 U/L (10-53); TOTAL BILIRUBIN ADULT 0.5 MG/DL (0.2-1.0)
[2017-02-11] MEDS ORDERED: IOHEXOL 350 MG/ML 10 ML VIAL (for RAD DIAG) IV ONE (02:54)
[2017-02-11] MEDS ORDERED: PIPERACIL-TAZO 3.375 GM PREMIX 50 ML IV ONE (03:15)
--- NOTE | 2017-02-11 03:36 | RADRPT ---
EXAM DATE/TIME: 02/11/2017 02:51 [facility] COMPARISON: No previous studies available for comparison. INDICATIONS : Abdominal pain. IV CONTRAST: 80 cc Omnipaque 350 (iohexol) IV ORAL CONTRAST: No oral contrast ingested. RADIATION DOSE: 9.14 CTDIvol (mGy) MEDICAL HISTORY : Gastroesophageal reflux disease. Chronic obstructive pulmonary disease. Cardiovascular disease SURGICAL HISTORY : None. ENCOUNTER: Initial ACUITY: 1 day PAIN SCALE: 10/10 LOCATION: abdomen TECHNIQUE: Volumetric scanning of the abdomen and pelvis was performed. Using automated exposure control and ad justment of the mA and/or kV according to patient size, radiation dose was kept as low as reasonably achievable to obtain optimal diagnostic quality images. DICOM format image data is available electro nically for review and comparison. FINDINGS: LOWER LUNGS: Moderate-sized left pleural effusion. Small right pleural effusion. LIVER: Small calcified gallstones in the dependent portion of gallbladder. No pericholecystic inflammatory c hanges. Mild intrahepatic biliary ductal prominence. Common duct diameter also mildly prominent measu ring 7-8 mm. Several punctate calcific densities in the pancreatic head appear to be outside of the d ucts. SPLEEN: Normal size without lesion. PANCREAS: Several punctate calcifications in the pancreatic head may be vascular or represent chronic pancreati tis. KIDNEYS: Also bilateral renal cysts. 4 mm calculus in the midpole of the left kidney. No evidence of hydroneph rosis. ADRENAL GLANDS: 1.5 cm right adrenal nodule. Nonspecific. VASCULAR: There is no aortic aneurysm. BOWEL/MESENTERY: Focal left lower quadrant small bowel wall thickening and prominent adjacent edema in the mesentery i s seen. No free air or free fluid. Maximum small bowel diameter is 3.1 cm. Moderate amount of free fl uid in the dependent portion of the pelvis. Scattered colonic diverticula but no evidence of acute di verticulitis. ABDOMINAL WALL: Within normal limits. RETROPERITONEUM: There is no lymphadenopathy. BLADDER: No wall thickening or mass. REPRODUCTIVE: Within normal limits. INGUINAL: There is no lymphadenopathy or hernia. MUSCULOSKELETAL: Degenerative findings of the lumbar spine. Severe osteoarthritic findings of the hips. CONCLUSION: 1. Prominent focal wall thickening of a loop of small bowel in the left lower quadrant. Differential diagnosis includes infection, inflammatory bowel disease, and ischemia. Moderate amount of free fluid in the dependent portion of the pelvis. No evidence of free air. Mid small bowel is mildly distended . 2. Cholelithiasis. Mild intrahepatic and extrahepatic biliary ductal prominence. 3. Nonobstructing left renal calculus. 4. Moderate-sized left pleural effusion. Juan R Ruiz MD on February 11, 2017 at 3:21 Board Certified Radiologist. This report was verified electronically.
[2017-02-11] MEDS ORDERED: SODIUM CHLORIDE 0.9% FLUSH 10 ML FLUSH IVF PRN (04:00)
--- NOTE | 2017-02-11 04:07 | RADRPT ---
EXAM DATE/TIME: 02/11/2017 03:46 [facility] COMPARISON: CHEST SINGLE AP, August 11, 2016, 12:31. CHEST SINGLE AP, August 11, 2016, 8:01. CHEST PA & LAT, August 21, 2016, 8:44. CHEST SINGLE AP, August 14, 2016, 8:01. INDICATIONS : Short of breath. MEDICAL HISTORY : Chronic obstructive pulmonary disease. Cardiovascular disease. SURGICAL HISTORY : None. ENCOUNTER: Initial ACUITY: 1 day PAIN SCORE: 0/10 LOCATION: Bilateral chest FINDINGS: Single AP view of the chest. Increase in size of right pleural effusion, now tracking along the media l and lateral aspects of the left hemithorax and into the region of the left apex. Volume loss and mi ld diffuse parenchymal opacity on the left. Sclerotic bone lesion in the right humeral neck suggestin g a lesion of low biologic activity such as an enchondroma. CONCLUSION: 1. Increased left pleural effusion and diffuse left parenchymal opacity. 2. Sclerotic bone lesion in the medial right humeral neck grossly unchanged. Juan R Ruiz MD on February 11, 2017 at 4:03 Board Certified Radiologist. This report was verified electronically.
[2017-02-11 04:25] LABS: BACTERIA, URINE MOD /hpf; BLOOD, URINE MOD (NEG); GLUCOSE,URINE 300 mg/dL (NEG); KETONE, URINE 10 mg/dL (NEG); MUCUS URINE FEW /lpf (OCC); NITRITE,URINE NEG (NEG); PH, URINE 6.5 (5.0-8.5); SQUAMOUS EPITHELIAL CELL URINE 3 /hpf (0-5); URINE COLOR YELLOW (YELLW/STRAW)
[2017-02-11 04:26] LABS: COMMENT (UR) CULTURE INDICATED; CULTURE IF INDICATED CULTURE INDICATED
--- NOTE | 2017-02-11 05:02 | PD ---
HPI Chief Complaint: Abdominal Pain Time Seen by Provider: 01:05 Travel History International Travel<30 days: No Contact w/Intl Traveler<30days: No Traveled to known affect area: No History of Present Illness HPI This is an 89-year-old female who lives in an assisted living facility who presents to the emergency department with several hours of lower abdominal discomfort, constant, moderate severity associated with several episodes of vomiting. She was with her daughter earlier in the day and was feeling fine with no fevers or chills. She denies any dysuria, hematuria, constipation or diarrhea. She did have a complicated admission earlier this year in the setting of respiratory failure and sepsis. Her daughter says she didn't like being on the ventilator and would probably not want to be on a ventilator again. The patient does have a living will. PFSH Past Medical History Arthritis: Yes Heart Rhythm Problems: No Cancer: No Cardiovascular Problems: Yes High Cholesterol: Yes Chest Pain: No Congestive Heart Failure: No COPD: Yes Cerebrovascular Accident: No Diabetes: No Diminished Hearing: No Endocrine: Yes Gastrointestinal Disorders: Yes GERD: Yes Genitourinary: No Hiatal Hernia: No Musculoskeletal: Yes (OSTEOPOROSIS, CHRONIC L KNEE PAIN, COMPRESSION FRACTURES) Neurologic: Yes Psychiatric: No Reproductive: No Respiratory: Yes Thyroid Disease: Yes Ulcer: No Tetanus Vaccination: Unknown Influenza Vaccination: No Menopausal: Yes : 2 Para: 2 Past Surgical History Abdominal Surgery: No Cardiac Surgery: No Eye Surgery: Yes (CATARACTS) Genitourinary Surgery: No Gynecologic Surgery: No Oral Surgery: No Thoracic Surgery: No Tonsillectomy: Yes Social History Alcohol Use: No Tobacco Use: Yes (1 PPD) Substance Use: No Allergies-Medications (Allergen,Severity, Reaction): Coded Allergies: No Known Allergies (Verified , 02/11/17) Reported Meds & Prescriptions Reported Meds & Active Scripts Active Lasix (Furosemide) 20 Mg Tab 20 Mg PO EVERY OTHER DAY Potassium Chloride Microencaps 20 Meq Tab 20 Meq PO EVERY OTHER DAY Lopressor (Metoprolol Tartrate) 50 Mg Tab 50 Mg PO Q12HR [place] (Hydrocodone-Acetaminophen) 5-325 mg Tab 1 Tab PO Q6HR PRN Reported Vitamin D (Ergocalciferol) 50,000 Unit Cap 50,000 Units PO [id number] Atorvastatin (Atorvastatin Calcium) 20 Mg Tab 20 Mg PO HS Calcium 600 + D (Calcium Carbonate-Vitamin D) 600-400 Mg-Unit Tab 1 Tab PO BID Multivitamin Adults (Multiple Vitamins W/ Minerals) 1 Tab 1 Tab PO DAILY Methimazole 10 Mg Tab 10 Mg PO DAILY Prilosec (Omeprazole) 20 Mg Cap 20 Mg PO DAILY Review of Systems ROS Limitations: Poor Historian Physical Exam Narrative GENERAL: Frail elderly by mouth female, uncomfortable appearing SKIN: Focused skin assessment warm and dry. HEAD: Atraumatic. Normocephalic. EYES: Pupils equal and round. No injection or drainage. ENT: Dry mucous membranes. NECK: Trachea midline. CARDIOVASCULAR: Regular rate and rhythm. No murmur appreciated. RESPIRATORY: Rales in the left lung, no tachypnea or accessory muscle use. GASTROINTESTINAL: Abdomen soft, tender to palpation in the left lower quadrant and left upper quadrants with no rebound or guarding. MUSCULOSKELETAL: No obvious deformities. NEUROLOGICAL: Awake and alert. No obvious cranial nerve deficits. Moving all extremities. PSYCHIATRIC: Appropriate mood and affect; insight and judgment normal. Data Data Last Documented VS Vital Signs Date Time Temp Pulse Resp B/P Pulse Ox O2 Delivery O2 Flow Rate FiO2 02/11/17 01:09 85 24 192/79 94 Nasal Cannula 2 02/11/17 00:35 98.8 Orders Complete Blood Count With Diff (02/11/17 01:15) Comprehensive Metabolic Panel (02/11/17 01:15) Lipase (02/11/17 01:15) Lactic Acid (02/11/17:15) Urinalysis - C+S If Indicated (02/11/17 01:15) Ct Abd/Pel W Iv Contrast(Rout) (02/11/17 01:15) Iv Access Insert/Monitor (02/11/17 01:15) Ecg Monitoring (02/11/17 01:15) Oximetry (02/11/17 01:15) Sodium Chloride 0.9% Flush (Ns Flush) (02/11/17 01:15) Sodium Chlorid 0.9% 500 Ml Inj (Ns 500 M (02/11/17 01:15) Iohexol 350 Inj (Omnipaque 350 Inj) (02/11/17 02:54) Blood Culture (02/11/17 03:09) Piperacil-Tazo 3.375 Gm Premix (Zosyn 3. (02/11/17 03:15) Chest, Single Ap (02/11/17 ) B-Type Natriuretic Peptide (02/11/17 03:45) Admit Order (Ed Use Only) (02/11/17 03:53) Labs Laboratory Tests Test 02/11/17 02/11/17 01:45 03:45 White Blood Count 20.8 TH/MM3 Red Blood Count 5.14 MIL/MM3 Hemoglobin 13.1 GM/DL Hematocrit 41.4 % Mean Corpuscular Volume 80.6 FL Mean Corpuscular Hemoglobin 25.5 PG Mean Corpuscular Hemoglobin 31.7 % Concent Red Cell Distribution Width 15.4 % Platelet Count 338 TH/MM3 Mean Platelet Volume 9.8 FL Neutrophils (%) (Auto) 94.9 % Lymphocytes (%) (Auto) 2.6 % Monocytes (%) (Auto) 2.1 % Eosinophils (%) (Auto) 0.1 % Basophils (%) (Auto) 0.3 % Neutrophils # (Auto) 19.8 TH/MM3 Lymphocytes # (Auto) 0.5 TH/MM3 Monocytes # (Auto) 0.4 TH/MM3 Eosinophils # (Auto) 0.0 TH/MM3 Basophils # (Auto) 0.1 TH/MM3 CBC Comment DIFF FINAL Differential Comment Sodium Level 144 MEQ/L Potassium Level 4.0 MEQ/L Chloride Level 111 MEQ/L Carbon Dioxide Level 25.0 MEQ/L Anion Gap 8 MEQ/L Blood Urea Nitrogen 20 MG/DL Creatinine 0.92 MG/DL Estimat Glomerular Filtration 57 ML/MIN Rate Random Glucose 251 MG/DL Lactic Acid Level 1.9 mmol/L Calcium Level 8.0 MG/DL Total Bilirubin 0.5 MG/DL Aspartate Amino Transf 12 U/L (AST/SGOT) Alanine Aminotransferase 9 U/L (ALT/SGPT) Alkaline Phosphatase 66 U/L Total Protein 6.3 GM/DL Albumin 2.7 GM/DL Lipase 57 U/L Urine Color YELLOW Urine Turbidity HAZY Urine pH 6.5 Urine Specific [place] GREATER THAN 1.050 Urine Protein 30 mg/dL Urine Glucose (UA) 300 mg/dL Urine Ketones 10 mg/dL Urine Occult Blood MOD Urine Nitrite NEG Urine Bilirubin NEG Urine Urobilinogen LESS THAN 2.0 MG/DL Urine Leukocyte Esterase LARGE Urine RBC 62 /hpf Urine WBC /hpf Urine WBC Clumps FEW Urine Squamous Epithelial 3 /hpf Cells Urine Bacteria MOD /hpf Urine Mucus FEW /lpf Microscopic Urinalysis Comment CULTURE INDICATED MDM Medical Decision Making Medical Screen Exam Complete: Yes Emergency Medical Condition: Yes Medical Record Reviewed: Yes (patient was admitted in August in the setting of sepsis and respiratory failure.) Interpretation(s) Afebrile, hypertensive Leukocytosis of 21 94% neutrophils Electrolytes are reassuring BNP is 468 Urinalysis: Urinary tract infection Last 24 hours Impressions Abdomen/Pelvis CT 02/11/17 0115 Signed Impressions: Service Date/Time: January 02:51 - CONCLUSION: 1. Prominent focal wall thickening of a loop of small bowel in the left lower quadrant. Differential diagnosis includes infection, inflammatory bowel disease, and ischemia. Moderate amount of free fluid in the dependent portion of the pelvis. No evidence of free air. Mid small bowel is mildly distended. 2. Cholelithiasis. Mild intrahepatic and extrahepatic biliary ductal prominence. 3. Nonobstructing left renal calculus. 4. Moderate-sized left pleural effusion. Juan R Ruiz MD Chest X-Ray 02/11/17 0000 Signed Impressions: Service Date/Time: , February 11, 2017 03:46 - CONCLUSION: 1. Increased left pleural effusion and diffuse left parenchymal opacity. 2. Sclerotic bone lesion in the medial right humeral neck grossly unchanged. Juan R Ruiz MD Differential Diagnosis Colitis, enteritis, mesenteric ischemia, urinary tract infection, pancreatitis Narrative Course This is an 89-year-old female who presents to the emergency department with abdominal discomfort. She is on well-appearing on exam. She is placed in a monitor and an IV was established. Labs are obtained which demonstrate a leukocytosis of 20. Urinalysis demonstrates urinary tract infection. CT abdomen and pelvis demonstrates focal wall thickening of small bowel in the left lower quadrant. Patient's lactic acid is 1.9 making mesenteric ischemia less likely. Patient likely has enteritis. She was given a small normal saline bolus as well as IV Zosyn and cultures were obtained. Patient will be admitted in the setting of sepsis and likely enteritis as well as UTI. Physician Communication Physician Communication Discussed with Dr. santizo Diagnosis Primary Impression: Sepsis Qualified Code: A41.9 - Sepsis, due to unspecified organism Additional Impression: Enteritis Admitting Information Admitting Physician Requests: Admit Erica Raygoza MD Feb 11, 2017 05:02
[2017-02-11] MEDS ORDERED: OMEP20TA PO (07:29)
[2017-02-11] MEDS ORDERED: ERGO1CAP30 PO (07:29)
[2017-02-11] MEDS: ONDANSETRON HCL 4 MG/2 ML VIAL IV PRN (08:47)
[2017-02-11] MEDS: SODIUM CHLORIDE 0.9% FLUSH 10 ML FLUSH IV FLUSH SCH ×2 (08:48→23:09)
[2017-02-11] MEDS: PIPERACIL-TAZO 3.375 GM PREMIX 50 ML IV SCH ×2 (10:54→17:58)
--- NOTE | 2017-02-11 13:40 | HHI.HP ---
HPI Service [facility] Hospitalists Primary Care Physician Duane Black MD, PhD Admission Diagnosis enteritis Chief Complaint: abdomen pain n/v Travel History International Travel<30 Days: No Contact w/Intl Traveler <30 Da: No Traveled to Known Affected Are: No History of Present Illness Pt is 89 yo who lives in [facility]. She was complaining of abdomen discomfort and was vomiting. Her daughter called 911 and she was brought here. Her wbc with 20k and she was noted to have uti in ED and also her small bowel with thickened with some afl's on CT and so she was admitted for enteritis. currenlty she seems to feels better. Daughter is present and eager to get her back to [facility]. Review of Systems Other abdomen pain n/v Past Family Social History Past Medical History respiratory failure requiring intubation and pressor support. aspiration PNA 2D echo with noted systolic CHF with EF of 40%, mod/severe mitral stenosis, severe TR and pulmonary HTN. htn hyperlipidemia hyperthyroidism ckd 3 Reported Medications Lasix (Furosemide) 20 Mg Tab 20 Mg PO EVERY OTHER DAY Potassium Chloride Microencaps 20 Meq Tab 20 Meq PO EVERY OTHER DAY Lopressor (Metoprolol Tartrate) 50 Mg Tab 50 Mg PO Q12HR Ergocalciferol 50,000 Unit Cap 50,000 Units PO Q7D Omeprazole 20 Mg Tab 20 Mg PO DAILY Atorvastatin (Atorvastatin Calcium) 20 Mg Tab 20 Mg PO HS Methimazole 10 Mg Tab 10 Mg PO DAILY Allergies: Coded Allergies: No Known Allergies (Verified , 02/11/17) Family History nc Social History no etoh/tob Physical Exam Vital Signs nad cooperative heart reg lung cta abd s/nt/nabs ext no edema Vital Signs Date Time Temp Pulse Resp B/P Pulse Ox O2 Delivery O2 Flow Rate FiO2 02/11/17 12:30 96.0 92 17 136/68 94 02/11/17 11:27 97.9 86 18 129/76 99 Nasal Cannula 2 02/11/17 08:49 97.8 87 17 132/63 97 Nasal Cannula 2 02/11/17 07:59 95 Nasal Cannula 2.00 02/11/17 07:23 17 02/11/17 07:23 97.8 88 17 142/68 97 Nasal Cannula 2 02/11/17 04:20 95 Nasal Cannula 2.00 02/11/17 01:09 85 24 192/79 94 Nasal Cannula 2 02/11/17 00:35 98.8 83 20 165/84 98 02/11/17 00:27 16 Laboratory Laboratory Tests Test 02/11/17 02/11/17 02/11/17 01:45 03:45 04:05 White Blood Count 20.8 Red Blood Count 5.14 Hemoglobin 13.1 Hematocrit 41.4 Mean Corpuscular Volume 80.6 Mean Corpuscular Hemoglobin 25.5 Mean Corpuscular Hemoglobin 31.7 Concent Red Cell Distribution Width 15.4 Platelet Count 338 Mean Platelet Volume 9.8 Neutrophils (%) (Auto) 94.9 Lymphocytes (%) (Auto) 2.6 Monocytes (%) (Auto) 2.1 Eosinophils (%) (Auto) 0.1 Basophils (%) (Auto) 0.3 Neutrophils # (Auto) 19.8 Lymphocytes # (Auto) 0.5 Monocytes # (Auto) 0.4 Eosinophils # (Auto) 0.0 Basophils # (Auto) 0.1 CBC Comment DIFF FINAL Differential Comment Sodium Level 144 Potassium Level 4.0 Chloride Level 111 Carbon Dioxide Level 25.0 Anion Gap 8 Blood Urea Nitrogen 20 Creatinine 0.92 Estimat Glomerular Filtration 57 Rate Random Glucose 251 Lactic Acid Level 1.9 Calcium Level 8.0 Total Bilirubin 0.5 Aspartate Amino Transf 12 (AST/SGOT) Alanine Aminotransferase 9 (ALT/SGPT) Alkaline Phosphatase 66 Total Protein 6.3 Albumin 2.7 Lipase 57 Urine Color YELLOW Urine Turbidity HAZY Urine pH 6.5 Urine Specific [place] GREATER THAN 1.050 Urine Protein 30 Urine Glucose (UA) 300 Urine Ketones 10 Urine Occult Blood MOD Urine Nitrite NEG Urine Bilirubin NEG Urine Urobilinogen LESS THAN 2.0 Urine Leukocyte Esterase LARGE Urine RBC 62 Urine WBC Urine WBC Clumps FEW Urine Squamous Epithelial 3 Cells Urine Bacteria MOD Urine Mucus FEW Microscopic Urinalysis Comment CULTURE INDICATED B-Type Natriuretic Peptide 468 Date/Time Procedure Status Source Growth 02/11/17 03:55 Aerobic Blood Culture Received Blood Peripheral Pending 02/11/17 03:55 Anaerobic Blood Culture Received Blood Peripheral Pending 02/11/17 03:45 Urine Culture Received Urine Random Urine Pending Result Diagram: 02/11/17 0145 02/11/17 0145 Assessment and Plan Problem List: (1) Enteritis Status: Acute Plan: Pt admitted with acute abdomen pain with n/v CT shows some concern for enteritis. also alot of stool in colon/rectum. UTI advance diet overnight. prn antiemetics abx and f/u urine cx laxative PT eval d/c back to [facility] once tolerating diet (2) UTI (urinary tract infection) Status: Acute Plan: see above (3) Hyperthyroidism Status: Chronic (4) Hyperlipidemia Status: Acute (5) Stage 3 chronic kidney disease Status: Chronic (6) Systolic CHF, chronic Status: Chronic Plan: stable Physician Certification 2 Midnight Certification Type: Admission for Inpatient Services Order for Inpatient Services 3The services are ordered in accordance with Medicare regulations or non- Medicare payer requirements, as applicable. In the case of services not specified as inpatient-only, they are appropriately provided as inpatient services in accordance with the 2-midnight benchmark. Estimated LOS (days): 3 3 days is the estimated time the patient will need to remain in the hospital, assuming treatment plan goals are met and no additional complications. Post-Hospital Plan: Not yet determined Dio Wade MD Feb 11, 2017 13:40
[2017-02-11] MEDS ORDERED: BISACODYL EC 5 MG TABEC PO ONE (14:45)
[2017-02-11] MEDS ORDERED: LACTULOSE SYRUP 20 GM/30 ML CUP PO ONE (14:45)
[2017-02-11] MEDS: ATORVASTATIN 20 MG TAB PO SCH (23:08)
[2017-02-11] MEDS: METOPROLOL TARTRATE 50 MG TAB PO SCH (23:08)
[2017-02-12] VITALS (10 sets, daily range): BP systolic 112–143; BP diastolic 54–69; PULSE 66–91; RESP 16–20; TEMP 95.7–97.9; O2SAT 91–98
[2017-02-12] MEDS: PIPERACIL-TAZO 3.375 GM PREMIX 50 ML IV SCH ×3 (02:21→18:09)
[2017-02-12] MEDS ORDERED: ALEN1TAB48 PO (07:10)
[2017-02-12] MEDS ORDERED: ESCI5TAB PO (07:10)
[2017-02-12] MEDS: SODIUM CHLORIDE 0.9% FLUSH 10 ML FLUSH IV FLUSH SCH ×2 (08:51→21:00)
[2017-02-12] MEDS: METOPROLOL TARTRATE 50 MG TAB PO SCH ×2 (08:52→21:59)
[2017-02-12] MEDS: PANTOPRAZOLE SOD 20 MG DELAYED RELEASE TAB PO SCH (08:52)
[2017-02-12] MEDS: METHIMAZOLE 10 MG TAB PO SCH (08:52)
[2017-02-12] MEDS ORDERED: BISACODYL EC 5 MG TABEC PO ONE (10:45)
[2017-02-12] MEDS ORDERED: LACTULOSE SYRUP 20 GM/30 ML CUP PO ONE (10:45)
--- NOTE | 2017-02-12 11:21 | HHI.PR ---
Subjective Remarks looks more sob eating liquids refused laxatives yesterday Objective Vitals oriented heart reg lung wheezing abd mild distention. high pitch bs ext no edema Vital Signs Date Time Temp Pulse Resp B/P Pulse Ox O2 Delivery O2 Flow Rate FiO2 02/12/17 09:05 92 02/12/17 09:02 66 02/12/17 08:00 97.5 77 16 135/69 91 02/12/17 04:00 97.1 74 20 143/63 92 02/12/17 00:00 91 02/12/17 00:00 97.9 85 20 112/60 92 02/11/17 20:00 97.1 84 20 146/83 92 02/11/17 17:52 95 Nasal Cannula 2.00 02/11/17 16:00 95.9 83 18 147/67 94 02/11/17 12:30 96.0 92 17 136/68 94 02/11/17 11:27 97.9 86 18 129/76 99 Nasal Cannula 2 02/11/17 02/11/17 02/12/17 15:00 23:00 07:00 Intake Total 48 ml Balance 48 ml Intake IV Total 48 ml # Voids 1 1 # Bowel Movements 0 1 Result Diagram: 02/11/17 0145 02/11/17 0145 A/P Problem List: (1) Enteritis Status: Acute Plan: Pt admitted with acute abdomen pain with n/v CT shows some concern for enteritis. also alot of stool in colon/rectum. left pleural effusion UTI refused laxative yesterday no bm. looks more sob. kub, cxr now cont abx and f/u cx prn antiemetics laxative PT eval will talk with family concern for deterioration. ADDENDUM; SPOKE TO DAUGHTER. LEFT PLEURAL EFFUSION WAS THERE BEFORE AND BEING MONITORED BY DR MCGEE. IT LOOKS BIGGER AND SHE HAS SOB/WHEEZING. SPOKE WITH DR MCGEE WHO WILL SEE HER TODAY AND WE ORDERED U/S KORTNEY. ALSO ORDER ENEMA SHE HAS ALOT OF STOOL AND PROBABLY ILEUS. KUB PENDING. FULL CODE AT THIS TIME. addendum: I spoke to daughter about possible bowel obstruction. npo. start gentle ivf once thoracentesis complete. she is full code for now. I discussed ngt if pt starts vomiting and pt daughter is not sure pt will accept it...... (2) UTI (urinary tract infection) Status: Acute Plan: see above (3) Hyperthyroidism Status: Chronic (4) Hyperlipidemia Status: Acute (5) Stage 3 chronic kidney disease Status: Chronic (6) Systolic CHF, chronic Status: Chronic Plan: stable Dio Wade MD Feb 12, 2017 11:21
[2017-02-12] MEDS ORDERED: SOD PHOSPHATE/SOD BIPHOSPHATE (ADULT) ENEMA 133ML RECTAL ONE (11:45)
[2017-02-12] MEDS: RESP: ALBUTEROL 2.5 MG/IPRATROPIUM 0.5 MG NEB (SCH) NEB ×4 (12:00→19:55)
--- NOTE | 2017-02-12 12:44 | RADRPT ---
EXAM DATE/TIME: 02/12/2017 11:37 [facility] COMPARISON: CHEST SINGLE AP, February 11, 2017, 3:46. INDICATIONS : Short of breath. MEDICAL HISTORY : Chronic obstructive pulmonary disease. Cardiovascular disease.Gastroesophageal reflux disease. SURGICAL HISTORY : None. ENCOUNTER: Subsequent ACUITY: 2 days PAIN SCORE: 0/10 LOCATION: Bilateral chest FINDINGS: Large left pleural effusion is present slightly reduced in size since the prior study, however there is consolidation or compressive collapse of left lower lung. The right lung is clear. Probable [place] droma right proximal humerus has not changed. CONCLUSION: Large left pleural effusion and compressive collapse and or consolidation left lung base K. Devonte Pratt MD on February 12, 2017 at 12:41 Board Certified Radiologist. This report was verified electronically.
[2017-02-12 12:57] LABS: AUTOMATED NEUTROPHIL # 27.4 TH/MM3 (1.8-7.7); BASOPHIL % 0.1 % (0.0-2.0); HEMATOCRIT 39.6 % (35.0-46.0); HEMO FLAGS DIFF FINAL; LYMPH % 2.5 % (9.0-44.0); LYMPHOCYTE # 0.7 TH/MM3 (1.0-4.8); MEAN CELL VOLUME 80.2 FL (80.0-100.0); MEAN CORPUSCULAR HEMOGLOBIN 25.3 PG (27.0-34.0); MEAN CORPUSCULAR HGB CONC 31.5 % (32.0-36.0); MONO % 3.3 % (0.0-8.0); NEUT % 94.1 % (16.0-70.0); PLATELET COUNT 368 TH/MM3 (150-450); RED BLOOD COUNT 4.94 MIL/MM3 (4.00-5.30); RED CELL DISTRIBUTION WIDTH 15.8 % (11.6-17.2); WHITE BLOOD COUNT 29.1 TH/MM3 (4.0-11.0)
--- NOTE | 2017-02-12 13:02 | RADRPT ---
EXAM DATE/TIME: 02/12/2017 11:41 [facility] COMPARISON: CT ABDOMEN & PELVIS W CONTRAST, February 11, 2017, 2:51. INDICATIONS : Distention. MEDICAL HISTORY : Gastroesophageal reflux disease.Chronic obstructive pulmonary disease. Cardiovascular disease. SURGICAL HISTORY : None. ENCOUNTER: Subsequent ACUITY: 2 days PAIN SCORE: 0/10 LOCATION: Bilateral Abdomen. FINDINGS: There are organized distended loops of small bowel maximum diameter 4.3 cm characteristic of small elva wel obstruction with some gas seen in the colon and this could be partial obstruction. No definite fr ee air is identified for technique. CONCLUSION: Findings are highly suspicious for small bowel obstruction may be partial. Addy Pratt MD on February 12, 2017 at 12:59 Board Certified Radiologist. This report was verified electronically.
[2017-02-12 13:20] LABS: BICARBONATE 25.3 MEQ/L (21.0-32.0)
--- NOTE | 2017-02-12 15:36 | RADRPT ---
EXAM DATE/TIME: 02/12/2017 14:40 [facility] COMPARISON: No previous studies available for comparison. INDICATIONS : Left pleural effusion. MEDICAL HISTORY : Hypercholesterolemia. Chronic obstructive pulmonary disease. Congestive heart failure. Thyroid diseas e. Dyspnea. GERD. Osteoporosis. Compresssion fractures back. Arthritis. Stage 3 kidney disease. SURGICAL HISTORY : Tonsillectomy. Cataract eye surgery. Left foot surgery. ENCOUNTER: Initial ACUITY: 1 day PAIN SCORE: 0/10 LOCATION: Left chest. MEASUREMENTS: SKIN TO PARIETAL PLEURA: 1.6 cm SKIN TO MAX SAFE DEPTH: 5.1 cm ESTIMATED FLUID VOLUME: 325.3 cc FLUID COMPOSITION: simple FINDINGS: Pleural effusion as above. CONCLUSION: 1. Large left pleural effusion. 2. Ultrasound examination for evaluation and targeting of left pleural effusion, as above. Benjamin Nazario MD on February 12, 2017 at 15:34 Board Certified Radiologist. This report was verified electronically.
[2017-02-12 17:46] LABS: APTT (PATIENT) 25.7 SEC (24.3-30.1)
[2017-02-12] MEDS: ONDANSETRON HCL 4 MG/2 ML VIAL IV PRN (18:20)
--- NOTE | 2017-02-12 20:18 | MB ---
cc: NARA MCGEE DATE OF CONSULTATION: 02/12/2017. REASON FOR CONSULTATION: Evaluate pleural effusion. REQUESTING PHYSICIAN: Dr. Wade. HISTORY OF PRESENT ILLNESS: Ms. Mcneal is a pleasant 89-year-old female with history of pleural effusion. She came to the hospital complaining of abdominal pain, nausea and vomiting that started two days ago. [facility] was called. She was brought to the hospital. She did have some vomiting after that. She started vomiting yellow and soft food. She has moved her bowels for two days and she is being kept NPO now. She had a workup done. She had a CT scan of the abdomen and pelvis done which shows prominent focal wall thickening of the loops of the small bowel in the left lower quadrant. Chest x-ray shows a rather large pleural effusion. Ultrasound of the chest was done, which shows pleural fluid 325 cc. She denies any shortness of breath. No fever or chills. No night sweats. PAST MEDICAL HISTORY: Her past medical history is significant for: 1. History of hyperlipidemia. 2. Hypothyroidism. 3. Chronic kidney disease. 4. History of respiratory failure in the past. MEDICATIONS: She is currently takin. Albuterol and Atrovent nebulizer treatment. 2. Methimazole 10 milligrams daily for hypothyroidism. 3. Protonix 20 milligrams a day. 4. Lipitor 20 milligrams a day. 5. Lopressor 50 milligrams a day. 6. Zosyn IV. 7. Zofran PRN. ALLERGIES: NO KNOWN DRUG ALLERGIES. SOCIAL HISTORY: She denies any significant alcohol use. FAMILY HISTORY: Noncontributory. REVIEW OF SYSTEMS: She feels weak and tired. She has abdominal pain. No seizure, stroke or epilepsy. PHYSICAL EXAMINATION: GENERAL: Physical exam reveals a frail elderly female mild short of breath, not in acute distress. VITAL SIGNS: Blood pressure 121/54, heart rate 74, respirations 17, temperature 97.7. Saturation 98% on room air. HEAD, EYES, EARS, NOSE, THROAT: Unremarkable. NECK: The neck is supple. JVP not raised. CHEST: Air entry equal bilaterally. Slightly decreased breath sounds at the left base. CARDIOVASCULAR: S1-S2 normal. ABDOMEN: Abdomen soft and mildly distended, tympanic. Bowel sounds are present. EXTREMITIES: No edema. IMPRESSION: 1. Small pleural effusion. The patient is tolerating it well. On ultrasound, the volume is 325 cc. 2. Abdominal pain. 3. Hypothyroidism. PLAN: I discussed with the patient and her daughter at the bedside she has abdominal discomfort and that seems to be her main problem. Will control that. Continue antibiotics. Monitor her pleural effusion. If she becomes short of breath, will consider a thoracentesis. Further treatment will depend on the course in the hospital. Thank you, Dr. Wade, for this consultation. MD PETRA Hall/JCSimeon /6:48 PM /8:11 PM
[2017-02-12] MEDS: ATORVASTATIN 20 MG TAB PO SCH (21:59)
[2017-02-12] MEDS: SODIUM CHLOR 0.9% 1000 ML INJ 1,000 ML IV SCH (22:19)
[2017-02-13] VITALS (9 sets, daily range): BP systolic 106–152; BP diastolic 52–76; PULSE 60–81; RESP 17–20; TEMP 96.2–97.6; O2SAT 92–99
[2017-02-13] MEDS: ONDANSETRON HCL 4 MG/2 ML VIAL IV PRN ×2 (01:41→17:02)
--- NOTE | 2017-02-13 03:21 | RADRPT ---
EXAM DATE/TIME: 02/13/2017 02:47 [facility] COMPARISON: CHEST SINGLE AP, February 12, 2017, 11:37. INDICATIONS : Pleural effusion. Short of breath. MEDICAL HISTORY : None. SURGICAL HISTORY : None. ENCOUNTER: Subsequent ACUITY: 3 days PAIN SCORE: 6/10 LOCATION: Left chest FINDINGS: Large left effusion increased from before with consolidation seen in the left lung and right medial l [place] base. There is cardiomegaly. Degenerative changes of the spine. CONCLUSION: Increasing left effusion. Morgan Boles MD on February 13, 2017 at 3:20 Board Certified Radiologist. This report was verified electronically.
--- NOTE | 2017-02-13 03:22 | RADRPT ---
EXAM DATE/TIME: 02/13/2017 02:52 [facility] COMPARISON: ABDOMEN KUB ONLY, February 12, 2017, 11:41. INDICATIONS : Obstruction. Abdominal pain. MEDICAL HISTORY : None. SURGICAL HISTORY : None. ENCOUNTER: Initial ACUITY: 3 days PAIN SCORE: Non-responsive. LOCATION: Bilateral lower quadrant FINDINGS: There are multiple dilated loops of small bowel identified increased from previous study. There is al so gastric distention. Left sided pleural effusion. CONCLUSION: Increasing bowel distention. Morgan Boles MD on February 13, 2017 at 3:20 Board Certified Radiologist. This report was verified electronically.
[2017-02-13] MEDS: RESP: ALBUTEROL 2.5 MG/IPRATROPIUM 0.5 MG NEB (SCH) NEB ×7 (03:35→23:46)
[2017-02-13] MEDS: PIPERACIL-TAZO 3.375 GM PREMIX 50 ML IV SCH ×3 (03:37→17:46)
[2017-02-13 07:35] LABS: AUTOMATED NEUTROPHIL # 20.5 TH/MM3 (1.8-7.7); BASOPHIL % 0.1 % (0.0-2.0); HEMATOCRIT 39.2 % (35.0-46.0); HEMO FLAGS DIFF FINAL; LYMPH % 3.8 % (9.0-44.0); LYMPHOCYTE # 0.9 TH/MM3 (1.0-4.8); MEAN CELL VOLUME 80.7 FL (80.0-100.0); MEAN CORPUSCULAR HEMOGLOBIN 26.4 PG (27.0-34.0); MEAN CORPUSCULAR HGB CONC 32.7 % (32.0-36.0); MONO % 6.5 % (0.0-8.0); NEUT % 89.6 % (16.0-70.0); PLATELET COUNT 360 TH/MM3 (150-450); RED BLOOD COUNT 4.85 MIL/MM3 (4.00-5.30); RED CELL DISTRIBUTION WIDTH 15.7 % (11.6-17.2); WHITE BLOOD COUNT 22.9 TH/MM3 (4.0-11.0)
[2017-02-13 08:00] LABS: BICARBONATE 32.2 MEQ/L (21.0-32.0); POTASSIUM 3.8 MEQ/L (3.5-5.1)
[2017-02-13] MEDS: METOPROLOL TARTRATE 50 MG TAB PO SCH ×3 (08:00→23:30)
[2017-02-13] MEDS: METHIMAZOLE 10 MG TAB PO SCH (08:01)
[2017-02-13] MEDS: SODIUM CHLORIDE 0.9% FLUSH 10 ML FLUSH IV FLUSH SCH ×2 (08:01→23:31)
[2017-02-13] MEDS: PANTOPRAZOLE SOD 20 MG DELAYED RELEASE TAB PO SCH (08:01)
--- NOTE | 2017-02-13 12:31 | HHI.PR ---
Subjective Remarks pt required ngt overnight. Objective Vitals ngt to suction heart irreg lung diminished left base abd mild distention. occasional high pitch tinkling sounds. ext no edema Vital Signs Date Time Temp Pulse Resp B/P Pulse Ox O2 Delivery O2 Flow Rate FiO2 02/13/17 10:50 81 02/13/17 09:16 95 21 02/13/17 08:00 97.6 78 17 121/76 97 02/13/17 04:00 96.2 79 20 144/72 94 02/13/17 00:00 97.3 71 20 122/66 95 02/12/17 22:15 82 02/12/17 20:00 97.1 76 20 127/58 95 02/12/17 16:13 95 21 02/12/17 16:00 97.7 74 17 121/54 98 02/12/17 02/12/17 02/13/17 15:00 23:00 07:00 Intake Total 100 ml 170 ml 0 ml Balance 100 ml 170 ml 0 ml Intake Oral 120 ml 0 ml IV Total 100 ml 50 ml # Voids 0 0 # Bowel Movements 0 0 Result Diagram: 02/13/17 0709 02/13/17 0709 A/P Problem List: (1) SBO (small bowel obstruction) Status: Acute Plan: Pt admitted with acute abdomen pain with n/v CT shows some concern for enteritis. also alot of stool in colon/rectum. over past 48 hr worsening bowel function with concern for some degree of small bowel obstruction. left pleural effusion..looks large on imaging UTI ngt to liws gentle ivf npo consulted gen surg to eval await pulm decision to do thoracentesis I discussed with daughter my concern for deterioration yesterday and apparently she left for [place]..Son still locally. Also daughter nor patient has agreed to dnr. full code until otherwise per pt/family cont abx. (2) Pleural effusion Status: Acute Plan: see above (3) Enteritis Status: Acute Plan: see above (4) UTI (urinary tract infection) Status: Acute Plan: see above (5) Hyperthyroidism Status: Chronic (6) Hyperlipidemia Status: Acute (7) Stage 3 chronic kidney disease Status: Chronic (8) Systolic CHF, chronic Status: Chronic Plan: stable Dio Wade MD Feb 13, 2017 12:31
--- NOTE | 2017-02-13 16:01 | MB ---
cc: DALE MERRILL DATE OF CONSULTATION 02/13/17 DATE OF 1925 HISTORY This is an 89-year-old female who resides in an [facility] who was brought in 2 days prior with a complaint of abdominal discomfort and emesis. The patient was noted to have thickening of the small bowel on CAT scan, elevated white count, urinary tract infections was admitted with a diagnosis of enteritis and urinary tract infection. She progressively worsened without bowel movement. She has had episodes of nausea last evening, an NG tube placed which put out 200. She also had episodes of V-tach in the night and now is in atrial fibrillation. The patient was lethargic but arousable, not giving history, so the history is obtained from the medical record. PAST MEDICAL HISTORY She has a history of CHF with ejection fraction of 40. History of respiratory failure, pleural effusion, hyperlipidemia, hypothyroidism, stage III kidney disease. MEDICATIONS She is on medications that include: 1. Lasix. 2. Potassium. 3. Lopressor. 4. Atorvastatin. 5. Methimazole. SOCIAL HISTORY No ethanol or tobacco use. ALLERGIES No known allergies. PHYSICAL EXAMINATION GENERAL: On exam she is laying in bed, arousable, responding to simple commands. HEENT: Pupils are equal and reactive. Trachea is midline. LUNGS: Respirations clear. CARDIOVASCULAR: Regular. GASTROINTESTINAL: Soft. Moderate distension. NEUROLOGICAL: Moves all extremities. LABORATORY DATA The patient's white count is 23. BUN is 35, creatinine 1.2. IMAGING STUDIES X-ray of the abdomen shows distended bowel. ASSESSMENT This is an 89-year-old female multiple medical problems who has enteritis versus bowel obstruction. The patient has NG tube in place. We will continue this for now as the patient is a poor surgical candidate. If no improvement will have to discuss further with family, hospice versus proceeding with surgical intervention. MD ZACHARIAH German/ISAI /12:47 PM /3:49 PM
[2017-02-13] MEDS: SODIUM CHLOR 0.9% 1000 ML INJ 1,000 ML IV SCH (17:47)
[2017-02-13] MEDS: ATORVASTATIN 20 MG TAB PO SCH (23:30)
[2017-02-14] VITALS (9 sets, daily range): BP systolic 99–126; BP diastolic 51–59; PULSE 69–86; RESP 16–18; TEMP 95.5–98.2; O2SAT 93–98
[2017-02-14] MEDS: PIPERACIL-TAZO 3.375 GM PREMIX 50 ML IV SCH ×3 (03:22→23:44)
[2017-02-14] MEDS: RESP: ALBUTEROL 2.5 MG/IPRATROPIUM 0.5 MG NEB (SCH) NEB ×4 (03:26→21:09)
[2017-02-14 08:21] LABS: AUTOMATED NEUTROPHIL # 11.4 TH/MM3 (1.8-7.7); BASOPHIL % 0.1 % (0.0-2.0); EOSINOPHIL % 0.3 % (0.0-4.0); HEMATOCRIT 39.2 % (35.0-46.0); HEMO FLAGS DIFF FINAL; LYMPHOCYTE # 0.8 TH/MM3 (1.0-4.8); MEAN CELL VOLUME 80.7 FL (80.0-100.0); MEAN CORPUSCULAR HEMOGLOBIN 26.3 PG (27.0-34.0); MEAN CORPUSCULAR HGB CONC 32.5 % (32.0-36.0); NEUT % 85.6 % (16.0-70.0); PLATELET COUNT 322 TH/MM3 (150-450); RED BLOOD COUNT 4.86 MIL/MM3 (4.00-5.30); RED CELL DISTRIBUTION WIDTH 15.4 % (11.6-17.2); WHITE BLOOD COUNT 13.4 TH/MM3 (4.0-11.0)
[2017-02-14] MEDS: SODIUM CHLORIDE 0.9% FLUSH 10 ML FLUSH IV FLUSH SCH ×2 (09:00→23:45)
[2017-02-14] MEDS: METOPROLOL TARTRATE 50 MG TAB PO SCH (09:00)
[2017-02-14] MEDS: PANTOPRAZOLE SOD 20 MG DELAYED RELEASE TAB PO SCH (09:00)
[2017-02-14 09:07] LABS: BICARBONATE 36.4 MEQ/L (21.0-32.0); POTASSIUM 3.1 MEQ/L (3.5-5.1)
--- NOTE | 2017-02-14 09:46 | RADRPT ---
EXAM DATE/TIME: 02/14/2017 09:25 [facility] COMPARISON: ABDOMEN KUB ONLY, February 13, 2017, 2:52. INDICATIONS : Abdominal Pain MEDICAL HISTORY : Gastroesophageal reflux disease.Chronic obstructive pulmonary disease Cardiovascular disease. SURGICAL HISTORY : None. ENCOUNTER: Subsequent ACUITY: 4 - 6 days PAIN SCORE: 4/10 LOCATION: Bilateral Abdomen FINDINGS: A nasogastric tube has been inserted. The tube is coiled in the fundus of the stomach and extends dis tally into the proximal duodenum beyond the pyloric valve. Dilated air-filled loops of small bowel remain evident. There is little gas and stool is noted in the colon. There is no evidence of mass effect. Significant opacity remains evident in the left lung base. CONCLUSION: Interval placement of nasogastric tube as described. Small bowel ileus characteristic of small bowel obstruction. No evidence of free air. Left basilar airspace disease and effusion. Leonel Daniel MD on February 14, 2017 at 9:42 Board Certified Radiologist. This report was verified electronically.
[2017-02-14] MEDS: METHIMAZOLE 10 MG TAB PO SCH (09:53)
[2017-02-14] MEDS: PANTOPRAZOLE SODIUM 40 MG VIAL IV PUSH SCH (12:03)
[2017-02-14] MEDS: POTASSIUM CHLORIDE INJ 40 MEQ in SODIUM CHLOR 0.45% 1000 ML INJ 1,000 ML IV SCH (12:04)
--- NOTE | 2017-02-14 12:21 | HHI.PR ---
Subjective Remarks pt has had some intermittent afib/rvr no bm yet Objective Vitals ngt to liws oriented no labored breathing heart irreg lung diminished left base abd mild distention. no bs ext no edema Vital Signs Date Time Temp Pulse Resp B/P Pulse Ox O2 Delivery O2 Flow Rate FiO2 02/14/17 08:28 98 Nasal Cannula 3.00 02/14/17 08:00 98.2 81 16 102/51 98 02/14/17 07:00 76 02/14/17 04:00 96.8 69 18 104/54 98 02/14/17 00:00 97.2 72 18 120/59 97 02/13/17 20:00 96.2 67 18 106/55 99 02/13/17 19:46 93 Nasal Cannula 3.00 02/13/17 16:00 96.8 60 18 131/59 92 02/13/17 02/13/17 02/14/17 15:00 23:00 07:00 Intake Total 232 ml Output Total 1000 ml Balance -768 ml IV Total 232 ml Output Gastric Drainage Total 1000 ml # Voids 4 6 # Bowel Movements 1 Result Diagram: 02/14/17 0750 02/14/17 0750 A/P Problem List: (1) SBO (small bowel obstruction) Status: Acute Plan: Pt admitted with acute abdomen pain with n/v CT shows some concern for enteritis. also alot of stool in colon/rectum. pt developed worsening bowel function with concern for some degree of small bowel obstruction. left pleural effusion..looks large on imaging UTI afib/rvr intermittently ngt to liws gentle ivf will add kcl npo gen surg following I discussed with daughter my concern for deterioration and apparently she left for [place]..Son still locally. Also daughter nor patient has agreed to dnr. 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 she is nurse and knows pt and family well. she will call and update family as pt seems to be poor surgical candidate and longer this takes she is getting weaker....pt seems open to hospice/comfort and go back to [facility] which is possible per the state wildlife officer. cont abx. adjust bb through ngt. (2) Pleural effusion Status: Acute Plan: see above (3) Enteritis Status: Acute Plan: see above (4) UTI (urinary tract infection) Status: Acute Plan: see above (5) Hyperthyroidism Status: Chronic (6) Hyperlipidemia Status: Acute (7) Stage 3 chronic kidney disease Status: Chronic (8) Systolic CHF, chronic Status: Chronic Plan: stable Dio Wade MD Feb 14, 2017 12:21
[2017-02-14] MEDS: METOPROLOL TARTRATE 25 MG TAB NG SCH ×2 (14:44→22:00)
[2017-02-14] MEDS: ATORVASTATIN 20 MG TAB PO SCH (23:45)
[2017-02-15] VITALS (10 sets, daily range): BP systolic 101–121; BP diastolic 53–61; PULSE 69–95; RESP 17–20; TEMP 95.7–97.9; O2SAT 93–100
[2017-02-15] MEDS: PIPERACIL-TAZO 3.375 GM PREMIX 50 ML IV SCH ×3 (02:34→18:43)
[2017-02-15] MEDS: RESP: ALBUTEROL 2.5 MG/IPRATROPIUM 0.5 MG NEB (SCH) NEB ×4 (03:50→20:29)
[2017-02-15] MEDS: METOPROLOL TARTRATE 25 MG TAB NG SCH ×3 (06:00→21:39)
[2017-02-15] MEDS: METHIMAZOLE 10 MG TAB PO SCH (08:25)
[2017-02-15] MEDS: SODIUM CHLORIDE 0.9% FLUSH 10 ML FLUSH IV FLUSH SCH ×2 (08:25→21:39)
[2017-02-15] MEDS: PANTOPRAZOLE SODIUM 40 MG VIAL IV PUSH SCH (11:06)
[2017-02-15 11:35] LABS: AUTOMATED NEUTROPHIL # 10.6 TH/MM3 (1.8-7.7); BASOPHIL # 0.1 TH/MM3 (0-0.2); BASOPHIL % 0.8 % (0.0-2.0); EOSINOPHIL # 0.2 TH/MM3 (0-0.4); EOSINOPHIL % 1.7 % (0.0-4.0); HEMATOCRIT 38.2 % (35.0-46.0); HEMO FLAGS DIFF FINAL; LYMPHOCYTE # 0.9 TH/MM3 (1.0-4.8); MEAN CELL VOLUME 81.8 FL (80.0-100.0); MEAN CORPUSCULAR HEMOGLOBIN 26.1 PG (27.0-34.0); MONO % 5.9 % (0.0-8.0); NEUT % 84.6 % (16.0-70.0); PLATELET COUNT 297 TH/MM3 (150-450); RED BLOOD COUNT 4.67 MIL/MM3 (4.00-5.30); WHITE BLOOD COUNT 12.6 TH/MM3 (4.0-11.0)
[2017-02-15 11:48] LABS: BICARBONATE 28.2 MEQ/L (21.0-32.0); MAGNESIUM 2.4 MG/DL (1.5-2.5)
[2017-02-15 11:50] LABS: POTASSIUM 4.2 MEQ/L (3.5-5.1)
[2017-02-15] MEDS: POTASSIUM CHLORIDE INJ 40 MEQ in SODIUM CHLOR 0.45% 1000 ML INJ 1,000 ML IV SCH (13:30)
--- NOTE | 2017-02-15 17:11 | HHI.PR ---
Subjective Remarks No new complaints. Objective Vitals Vital Signs Date Time Temp Pulse Resp B/P Pulse Ox O2 Delivery O2 Flow Rate FiO2 02/15/17 15:59 97.9 79 18 118/61 96 02/15/17 12:32 97.6 86 18 105/58 98 02/15/17 08:08 97.4 87 17 121/55 100 02/15/17 07:37 93 Nasal Cannula 2.00 02/15/17 06:06 92 02/15/17 04:00 96.2 95 18 115/53 96 02/15/17 03:52 95 Nasal Cannula 2.00 02/15/17 00:00 95.7 69 18 101/56 96 02/14/17 20:00 95.5 74 18 99/52 95 02/14/17 02/14/17 02/15/17 14:59 22:59 06:59 Intake Total 864 ml Output Total 200 ml 250 ml Balance 664 ml -250 ml IV Total 864 ml Output Gastric Drainage Total 200 ml 250 ml # Voids 3 3 # Bowel Movements 1 Result Diagram: 02/15/17 1106 02/15/17 1106 Imaging Last Impressions Abdomen X-Ray 02/14/17 0000 Signed Impressions: Service Date/Time: Tuesday, February 14, 2017 09:25 - CONCLUSION: Interval placement of nasogastric tube as described. Small bowel ileus characteristic of small bowel obstruction. No evidence of free air. Left basilar airspace disease and effusion. Leonel Daniel MD Chest X-Ray 02/13/17 0000 Signed Impressions: Service Date/Time: Monday, February 13, 2017 02:47 - CONCLUSION: Increasing left effusion. Morgan Boles MD Chest Ultrasound 02/12/17 0000 Signed Impressions: Service Date/Time: Sunday, February 12, 2017 14:40 - CONCLUSION: 1. Large left pleural effusion. 2. Ultrasound examination for evaluation and targeting of left pleural effusion, as above. Benjamin Nazario MD Abdomen/Pelvis CT 02/11/17 0115 Signed Impressions: Service Date/Time: January 02:51 - CONCLUSION: 1. Prominent focal wall thickening of a loop of small bowel in the left lower quadrant. Differential diagnosis includes infection, inflammatory bowel disease, and ischemia. Moderate amount of free fluid in the dependent portion of the pelvis. No evidence of free air. Mid small bowel is mildly distended. 2. Cholelithiasis. Mild intrahepatic and extrahepatic biliary ductal prominence. 3. Nonobstructing left renal calculus. 4. Moderate-sized left pleural effusion. Juan R Ruiz MD Objective Remarks GENERAL: This is a well-nourished, well-developed patient, in no apparent distress. CARDIOVASCULAR: Regular rate and rhythm without murmurs, gallops, or rubs. RESPIRATORY: Clear to auscultation. Breath sounds equal bilaterally. No wheezes , rales, or rhonchi. GASTROINTESTINAL: Abdomen soft, non-tender, nondistended. Normal active bowel sounds MUSCULOSKELETAL: Extremities without clubbing, cyanosis, or edema. NEURO: Alert & Oriented x4 to person, place, time, situation. Moves all ext x4 A/P Problem List: (1) SBO (small bowel obstruction) Status: Acute Plan: Pt admitted with acute abdomen pain with n/v CT shows some concern for enteritis. also alot of stool in colon/rectum. pt developed worsening bowel function with concern for some degree of small bowel obstruction. left pleural effusion..looks large on imaging UTI afib/rvr intermittently ngt to liws gentle ivf will add kcl npo gen surg following I discussed with daughter my concern for deterioration and apparently she left for [place]..Son still locally. Also daughter nor patient has agreed to dnr. full code until otherwise per pt/family spoke to owner/operator of her [facility] at bedside. she is nurse and knows pt and family well. she will call and update family as pt seems to be poor surgical candidate and longer this takes she is getting weaker....pt seems open to hospice/comfort and go back to [facility] which is possible per the owner/operator. cont abx. adjust bb through ngt. 02/16/17 - continue IVFs - repeat KUB in AM - continue supportive care (2) Pleural effusion Status: Acute Plan: see above (3) Enteritis Status: Acute Plan: see above (4) UTI (urinary tract infection) Status: Acute Plan: see above (5) Hyperthyroidism Status: Chronic (6) Hyperlipidemia Status: Acute (7) Stage 3 chronic kidney disease Status: Chronic (8) Systolic CHF, chronic Status: Chronic Plan: stable Matt Henao DO Feb 15, 2017 17:11
--- NOTE | 2017-02-15 20:03 | HHI.PR ---
Subjective Remarks 89 YOWF with Small pl eff, SBO NGT to suction mild abd pain On NC Objective Vital Signs Vital Signs Date Time Temp Pulse Resp B/P Pulse Ox O2 Delivery O2 Flow Rate FiO2 02/15/17 15:59 97.9 79 18 118/61 96 02/15/17 12:32 97.6 86 18 105/58 98 02/15/17 08:08 97.4 87 17 121/55 100 02/15/17 07:37 93 Nasal Cannula 2.00 02/15/17 06:06 92 02/15/17 04:00 96.2 95 18 115/53 96 02/15/17 03:52 95 Nasal Cannula 2.00 02/15/17 00:00 95.7 69 18 101/56 96 I/O 02/14/17 02/14/17 02/14/17 02/15/17 02/15/17 02/15/17 07:00 15:00 23:00 07:00 15:00 23:00 Intake Total 864 ml 854 ml Output Total 200 ml 200 ml 250 ml 50 ml Balance -200 ml 664 ml -250 ml 804 ml IV Total 864 ml 854 ml Output Gastric Drainage Total 200 ml 200 ml 250 ml 50 ml # Voids 6 3 3 3 # Bowel Movements 1 Result Diagram: 02/15/17 1106 02/15/17 1106 Objective Remarks GENERAL:Frail elderly female, no sob SKIN: Warm and dry. HEAD: Normocephalic. EYES: No scleral icterus. No injection or drainage. NECK: Supple, trachea midline. No JVD or lymphadenopathy. CARDIOVASCULAR: Regular rate and rhythm without murmurs, gallops, or rubs. RESPIRATORY: Breath sounds equal bilaterally. No accessory muscle use. GASTROINTESTINAL: Abdomen soft, non-tender, nondistended. MUSCULOSKELETAL: No cyanosis, or edema. BACK: Nontender without obvious deformity. No CVA tenderness. A/P Assessment and Plan Pleural effusion, small SBO Hyperparathyroidism PLAN: NGT to suction Cont Abx IVF Pl effusion small, will monitor. Galdino Ornelas MD Feb 15, 2017 20:03
[2017-02-15] MEDS: ATORVASTATIN 20 MG TAB PO SCH (21:39)
[2017-02-16] VITALS (9 sets, daily range): BP systolic 105–138; BP diastolic 58–67; PULSE 64–87; RESP 18–20; TEMP 97.7–98.2; O2SAT 94–98
[2017-02-16] MEDS: POTASSIUM CHLORIDE INJ 40 MEQ in SODIUM CHLOR 0.45% 1000 ML INJ 1,000 ML IV SCH ×2 (03:08→23:51)
[2017-02-16] MEDS: PIPERACIL-TAZO 3.375 GM PREMIX 50 ML IV SCH ×3 (03:08→18:21)
[2017-02-16] MEDS: RESP: ALBUTEROL 2.5 MG/IPRATROPIUM 0.5 MG NEB (SCH) NEB ×4 (04:27→19:40)
[2017-02-16] MEDS: METOPROLOL TARTRATE 25 MG TAB NG SCH ×3 (06:19→22:10)
[2017-02-16] MEDS: SODIUM CHLORIDE 0.9% FLUSH 10 ML FLUSH IV FLUSH SCH ×2 (09:00→21:00)
--- NOTE | 2017-02-16 09:18 | RADRPT ---
EXAM DATE/TIME: 02/16/2017 09:06 [facility] COMPARISON: ABDOMEN KUB ONLY, February 13, 2017, 2:52. INDICATIONS : Ileum MEDICAL HISTORY : Chronic obstructive pulmonary disease. Cardiovascular disease. Gastroesophageal reflux disease SURGICAL HISTORY : None. ENCOUNTER: Initial ACUITY: 4 - 6 days PAIN SCORE: 0/10 LOCATION: Abdomen FINDINGS: Supine view of the abdomen was performed. NG tube is coiling in the stomach and may be entering the d uodenum. The abdominal bowel gas pattern is normal. No abnormal masses, calcifications, or organomeg maxwell is seen. Bilateral hip arthritis and acetabular protrusio. CONCLUSION: Unremarkable bowel gas pattern. Some air-filled loops of small bowel are unchanged. N G tube within the stomach entering the duodenum Naren Floyd MD on February 16, 2017 at 9:15 Board Certified Radiologist. This report was verified electronically.
[2017-02-16] MEDS: METHIMAZOLE 10 MG TAB PO SCH (09:45)
[2017-02-16] MEDS: PANTOPRAZOLE SODIUM 40 MG VIAL IV PUSH SCH (10:23)
--- NOTE | 2017-02-16 12:48 | HHI.PR ---
Subjective Remarks No new complaints. Objective Vitals Vital Signs Date Time Temp Pulse Resp B/P Pulse Ox O2 Delivery O2 Flow Rate FiO2 02/16/17 12:27 97.9 78 18 132/60 95 02/16/17 10:07 98 Nasal Cannula 2.00 02/16/17 08:07 97.7 81 18 138/67 96 02/16/17 04:27 98 Nasal Cannula 2.00 02/16/17 04:00 97.8 80 19 114/61 97 02/16/17 00:00 98.2 64 20 105/64 97 02/15/17 20:29 96 Nasal Cannula 2.00 02/15/17 20:00 96.0 75 20 116/55 93 02/15/17 15:59 97.9 79 18 118/61 96 02/15/17 02/15/17 02/16/17 15:00 23:00 07:00 Intake Total 854 ml 582 ml 229 ml Output Total 50 ml 75 ml 25 ml Balance 804 ml 507 ml 204 ml IV Total 854 ml 582 ml 229 ml Output Gastric Drainage Total 50 ml 75 ml 25 ml # Voids 3 1 1 Result Diagram: 02/15/17 1106 02/15/17 1106 Imaging Last Impressions Abdomen X-Ray 02/14/17 0000 Signed Impressions: Service Date/Time: Tuesday, February 14, 2017 09:25 - CONCLUSION: Interval placement of nasogastric tube as described. Small bowel ileus characteristic of small bowel obstruction. No evidence of free air. Left basilar airspace disease and effusion. Leonel Daniel MD Chest X-Ray 02/13/17 0000 Signed Impressions: Service Date/Time: Monday, February 13, 2017 02:47 - CONCLUSION: Increasing left effusion. Morgan Boles MD Chest Ultrasound 02/12/17 0000 Signed Impressions: Service Date/Time: Sunday, February 12, 2017 14:40 - CONCLUSION: 1. Large left pleural effusion. 2. Ultrasound examination for evaluation and targeting of left pleural effusion, as above. Benjamin Nazario MD Abdomen/Pelvis CT 02/11/17 0115 Signed Impressions: Service Date/Time: January 02:51 - CONCLUSION: 1. Prominent focal wall thickening of a loop of small bowel in the left lower quadrant. Differential diagnosis includes infection, inflammatory bowel disease, and ischemia. Moderate amount of free fluid in the dependent portion of the pelvis. No evidence of free air. Mid small bowel is mildly distended. 2. Cholelithiasis. Mild intrahepatic and extrahepatic biliary ductal prominence. 3. Nonobstructing left renal calculus. 4. Moderate-sized left pleural effusion. Juan R Ruiz MD Objective Remarks GENERAL: This is a well-nourished, well-developed patient, in no apparent distress. CARDIOVASCULAR: Regular rate and rhythm without murmurs, gallops, or rubs. RESPIRATORY: Clear to auscultation. Breath sounds equal bilaterally. No wheezes , rales, or rhonchi. GASTROINTESTINAL: Abdomen soft, non-tender, nondistended. decreased bowel sounds MUSCULOSKELETAL: Extremities without clubbing, cyanosis, or edema. NEURO: Alert & Oriented x4 to person, place, time, situation. Moves all ext x4 A/P Problem List: (1) SBO (small bowel obstruction) Status: Acute Plan: - Pt admitted with acute abdomen pain with n/v - CT shows some concern for enteritis. also alot of stool in colon/rectum. - pt developed worsening bowel function with concern for some degree of small bowel obstruction. - CXR left pleural effusion - UTI, receiving zosyn - afib/rvr intermittently - ngt to liws - gentle ivf will add kcl - npo - repeat KUB (02/16/17), NO improvement, still with sections of dilated bowels - gen surg following - Case d/w General Surgery, Dr. Lyons, today (02/16/17). - Pt remains a poor surgical candidate - Pt needs to be transitioned to hospice. - I discussed the case with pt's daughter, Clarissa Mcneal, who agreed with hospice - daughter also asked that I speak with local contact. [facility] registered mail clerk, Mila Mejia - plan is for pt to return to [facility] with hospice following - family requests [facility], and I have placed a consult - DNR (2) Pleural effusion Status: Acute Plan: see above (3) Enteritis Status: Acute Plan: see above (4) UTI (urinary tract infection) Status: Acute Plan: see above (5) Hyperthyroidism Status: Chronic (6) Hyperlipidemia Status: Acute (7) Stage 3 chronic kidney disease Status: Chronic (8) Systolic CHF, chronic Status: Chronic Plan: stable Matt Henao DO Feb 16, 2017 12:48
--- NOTE | 2017-02-16 19:15 | HHI.PR ---
Subjective Remarks 89 YOWF with Small pl eff, SBO NGT to suction mild abd pain On NC Confused, gets agitated Objective Vital Signs Vital Signs Date Time Temp Pulse Resp B/P Pulse Ox O2 Delivery O2 Flow Rate FiO2 02/16/17 15:41 98.0 75 18 134/58 96 02/16/17 12:27 97.9 78 18 132/60 95 02/16/17 10:07 98 Nasal Cannula 2.00 02/16/17 08:07 97.7 81 18 138/67 96 02/16/17 04:27 98 Nasal Cannula 2.00 02/16/17 04:00 97.8 80 19 114/61 97 02/16/17 00:00 98.2 64 20 105/64 97 02/15/17 20:29 96 Nasal Cannula 2.00 02/15/17 20:00 96.0 75 20 116/55 93 I/O 02/15/17 02/15/17 02/15/17 02/16/17 02/16/17 02/16/17 07:00 15:00 23:00 07:00 15:00 23:00 Intake Total 854 ml 582 ml 229 ml Output Total 250 ml 50 ml 75 ml 25 ml Balance -250 ml 804 ml 507 ml 204 ml IV Total 854 ml 582 ml 229 ml Output Gastric Drainage Total 250 ml 50 ml 75 ml 25 ml # Voids 3 3 1 1 Result Diagram: 02/15/17 1106 02/15/17 1106 Objective Remarks GENERAL:Frail elderly female, no sob SKIN: Warm and dry. HEAD: Normocephalic. EYES: No scleral icterus. No injection or drainage. NECK: Supple, trachea midline. No JVD or lymphadenopathy. CARDIOVASCULAR: Regular rate and rhythm without murmurs, gallops, or rubs. RESPIRATORY: Breath sounds equal bilaterally. No accessory muscle use. GASTROINTESTINAL: Abdomen soft, non-tender, nondistended. MUSCULOSKELETAL: No cyanosis, or edema. BACK: Nontender without obvious deformity. No CVA tenderness. A/P Assessment and Plan Pleural effusion, small SBO Hyperparathyroidism PLAN: NGT to suction Cont Abx IVF Pl effusion small, will monitor. Galdino Ornelas MD Feb 16, 2017 19:15
[2017-02-16] MEDS: ATORVASTATIN 20 MG TAB PO SCH (22:10)
[2017-02-17] VITALS (9 sets, daily range): BP systolic 100–135; BP diastolic 56–77; PULSE 74–90; RESP 18–20; TEMP 96.7–98.5; O2SAT 91–97
[2017-02-17] MEDS: PIPERACIL-TAZO 3.375 GM PREMIX 50 ML IV SCH ×3 (03:18→16:34)
[2017-02-17] MEDS: RESP: ALBUTEROL 2.5 MG/IPRATROPIUM 0.5 MG NEB (SCH) NEB ×4 (03:53→21:27)
[2017-02-17] MEDS: METOPROLOL TARTRATE 25 MG TAB NG SCH ×3 (06:00→20:50)
[2017-02-17] MEDS: METHIMAZOLE 10 MG TAB PO SCH (07:38)
[2017-02-17] MEDS: SODIUM CHLORIDE 0.9% FLUSH 10 ML FLUSH IV FLUSH SCH ×2 (07:38→20:50)
[2017-02-17] MEDS: PANTOPRAZOLE SODIUM 40 MG VIAL IV PUSH SCH (08:49)
--- NOTE | 2017-02-17 11:04 | HHI.PR ---
Subjective Remarks confused at times. Pt is requesting to eat. Objective Vitals Vital Signs Date Time Temp Pulse Resp B/P Pulse Ox O2 Delivery O2 Flow Rate FiO2 02/17/17 10:13 95 Nasal Cannula 2.00 02/17/17 08:00 96.7 80 19 135/58 91 02/17/17 04:00 97.5 75 19 100/56 95 02/17/17 03:54 95 Nasal Cannula 2.00 02/17/17 00:00 98.5 90 20 119/77 93 02/16/17 20:00 98.0 87 19 120/60 94 02/16/17 19:42 96 Nasal Cannula 2.00 02/16/17 15:41 98.0 75 18 134/58 96 02/16/17 12:27 97.9 78 18 132/60 95 02/16/17 02/16/17 02/17/17 14:59 22:59 06:59 Intake Total 520 ml Balance 520 ml IV Total 520 ml # Voids 1 1 Result Diagram: 02/15/17 1106 02/15/17 1106 Imaging Last Impressions Abdomen X-Ray 02/14/17 0000 Signed Impressions: Service Date/Time: Tuesday, February 14, 2017 09:25 - CONCLUSION: Interval placement of nasogastric tube as described. Small bowel ileus characteristic of small bowel obstruction. No evidence of free air. Left basilar airspace disease and effusion. Leonel Daniel MD Chest X-Ray 02/13/17 0000 Signed Impressions: Service Date/Time: Monday, February 13, 2017 02:47 - CONCLUSION: Increasing left effusion. Morgan Boles MD Chest Ultrasound 02/12/17 0000 Signed Impressions: Service Date/Time: Sunday, February 12, 2017 14:40 - CONCLUSION: 1. Large left pleural effusion. 2. Ultrasound examination for evaluation and targeting of left pleural effusion, as above. Benjamin Nazario MD Abdomen/Pelvis CT 02/11/17 0115 Signed Impressions: Service Date/Time: January 02:51 - CONCLUSION: 1. Prominent focal wall thickening of a loop of small bowel in the left lower quadrant. Differential diagnosis includes infection, inflammatory bowel disease, and ischemia. Moderate amount of free fluid in the dependent portion of the pelvis. No evidence of free air. Mid small bowel is mildly distended. 2. Cholelithiasis. Mild intrahepatic and extrahepatic biliary ductal prominence. 3. Nonobstructing left renal calculus. 4. Moderate-sized left pleural effusion. Juan R Ruiz MD Objective Remarks GENERAL: This is a well-nourished, well-developed patient, in no apparent distress. CARDIOVASCULAR: Regular rate and rhythm without murmurs, gallops, or rubs. RESPIRATORY: Clear to auscultation. Breath sounds equal bilaterally. No wheezes , rales, or rhonchi. GASTROINTESTINAL: Abdomen soft, non-tender, nondistended. decreased bowel sounds MUSCULOSKELETAL: Extremities without clubbing, cyanosis, or edema. NEURO: Alert & Oriented x4 to person, place, time, situation. Moves all ext x4 A/P Problem List: (1) SBO (small bowel obstruction) Status: Acute Plan: - Pt admitted with acute abdomen pain with n/v - CT shows some concern for enteritis. also alot of stool in colon/rectum. - pt developed worsening bowel function with concern for some degree of small bowel obstruction. - CXR left pleural effusion - UTI, receiving zosyn - afib/rvr intermittently - ngt to liws - gentle ivf will add kcl - npo - repeat KUB (02/16/17), NO improvement, still with sections of dilated bowels - gen surg following - Case d/w General Surgery, Dr. Lyons, today (02/16/17). - Pt remains a poor surgical candidate - Case discussed with pt's daughter, Clarissa Mcneal, at the bedside. - Pt/daughter have elected for hospice and DNR - Pt/daughter request NGT to be remove with trial of diet prior to discharge back to [facility] with hospice. - If pt NOT able to tolerate diet with NGT out, then will likely place NGT back prior to discharge and send to [facility] - trial of clear liquid diet. - anticipate d/c to clear liquid diet - anticipate d/c 02/18/17 (2) Pleural effusion Status: Acute Plan: see above (3) Enteritis Status: Acute Plan: see above (4) UTI (urinary tract infection) Status: Acute Plan: see above (5) Hyperthyroidism Status: Chronic (6) Hyperlipidemia Status: Acute (7) Stage 3 chronic kidney disease Status: Chronic (8) Systolic CHF, chronic Status: Chronic Plan: stable Matt Henao DO Feb 17, 2017 11:04
--- NOTE | 2017-02-17 18:26 | HHI.PR ---
Subjective Remarks 89 YOWF with Small pl eff, SBO mild abd pain On NC Confused, gets agitated NGT Removed Feels better Objective Vital Signs Vital Signs Date Time Temp Pulse Resp B/P Pulse Ox O2 Delivery O2 Flow Rate FiO2 02/17/17 16:02 95 Nasal Cannula 2.00 02/17/17 16:00 97.1 80 18 114/57 95 02/17/17 12:00 98.5 88 18 131/56 95 02/17/17 10:13 95 Nasal Cannula 2.00 02/17/17 08:00 96.7 80 19 135/58 91 02/17/17 04:00 97.5 75 19 100/56 95 02/17/17 03:54 95 Nasal Cannula 2.00 02/17/17 00:00 98.5 90 20 119/77 93 02/16/17 20:00 98.0 87 19 120/60 94 02/16/17 19:42 96 Nasal Cannula 2.00 I/O 02/16/17 02/16/17 02/16/17 02/17/17 02/17/17 02/17/17 07:00 15:00 23:00 07:00 15:00 23:00 Intake Total 229 ml 520 ml 240 ml Output Total 25 ml Balance 204 ml 520 ml 240 ml Intake Oral 240 ml IV Total 229 ml 520 ml Output Gastric Drainage Total 25 ml # Voids 1 1 1 2 # Bowel Movements 0 Result Diagram: 02/15/17 1106 02/15/17 1106 Objective Remarks GENERAL:Frail elderly female, no sob SKIN: Warm and dry. HEAD: Normocephalic. EYES: No scleral icterus. No injection or drainage. NECK: Supple, trachea midline. No JVD or lymphadenopathy. CARDIOVASCULAR: Regular rate and rhythm without murmurs, gallops, or rubs. RESPIRATORY: Breath sounds equal bilaterally. No accessory muscle use. GASTROINTESTINAL: Abdomen soft, non-tender, nondistended. MUSCULOSKELETAL: No cyanosis, or edema. BACK: Nontender without obvious deformity. No CVA tenderness. A/P Assessment and Plan Pleural effusion, small SBO Hyperparathyroidism PLAN: Started liquids Cont Abx IVF Pl effusion small, will monitor. Galdino Ornelas MD Feb 17, 2017 18:26
[2017-02-17] MEDS: ONDANSETRON HCL 4 MG/2 ML VIAL IV PRN (20:49)
[2017-02-17] MEDS: ATORVASTATIN 20 MG TAB PO SCH (20:49)
[2017-02-18] VITALS: BP 116/63; PULSE 60; RESP 20; TEMP 97.5; O2SAT 94
[2017-02-18] MEDS: POTASSIUM CHLORIDE INJ 40 MEQ in SODIUM CHLOR 0.45% 1000 ML INJ 1,000 ML IV SCH (01:52)
[2017-02-18] MEDS: RESP: ALBUTEROL 2.5 MG/IPRATROPIUM 0.5 MG NEB (SCH) NEB ×2 (03:38→08:30)
[2017-02-18 03:40] VITALS: O2SAT 92
[2017-02-18 04:00] VITALS: BP 122/56; PULSE 73; RESP 20; TEMP 97.4; O2SAT 98
[2017-02-18] MEDS: PIPERACIL-TAZO 3.375 GM PREMIX 50 ML IV SCH ×2 (05:13→09:02)
[2017-02-18] MEDS: METOPROLOL TARTRATE 25 MG TAB NG SCH ×2 (05:21→12:25)
[2017-02-18 08:00] VITALS: BP 109/54; PULSE 77; RESP 18; TEMP 98.7; O2SAT 96
[2017-02-18 08:31] VITALS: O2SAT 98
[2017-02-18] MEDS: SODIUM CHLORIDE 0.9% FLUSH 10 ML FLUSH IV FLUSH SCH (09:00)
[2017-02-18] MEDS: METHIMAZOLE 10 MG TAB PO SCH (09:02)
[2017-02-18] MEDS: PANTOPRAZOLE SODIUM 40 MG VIAL IV PUSH SCH (09:02)
--- NOTE | 2017-02-18 11:54 | HHI.DS ---
Discharge Summary Admission Date Feb 11, 2017 at 03:54 Admitting Diagnosis enteritis (1) SBO (small bowel obstruction) (2) Pleural effusion (3) Enteritis (4) UTI (urinary tract infection) (5) Hyperthyroidism (6) Hyperlipidemia (7) Stage 3 chronic kidney disease (8) Systolic CHF, chronic Brief History Pt is 89 yo who lives in [facility]. She was complaining of abdomen discomfort and was vomiting. Her daughter called 911 and she was brought here. Her wbc with 20k and she was noted to have uti in ED and also her small bowel with thickened with some afl's on CT and so she was admitted for enteritis. currenlty she seems to feels better. Daughter is present and eager to get her back to [facility] alvaro. CBC/BMP: 02/15/17 1106 02/15/17 1106 PE at Discharge GENERAL: This is a well-nourished, well-developed patient, in no apparent distress. CARDIOVASCULAR: Regular rate and rhythm without murmurs, gallops, or rubs. RESPIRATORY: Clear to auscultation. Breath sounds equal bilaterally. No wheezes , rales, or rhonchi. GASTROINTESTINAL: Abdomen soft, non-tender, nondistended. decreased bowel sounds MUSCULOSKELETAL: Extremities without clubbing, cyanosis, or edema. NEURO: Alert & Oriented x4 to person, place, time, situation. Moves all ext x4 Hospital Course (1) SBO (small bowel obstruction) Status: Acute Plan: - Pt admitted with acute abdomen pain with n/v - CT shows some concern for enteritis. also alot of stool in colon/rectum. - pt developed worsening bowel function with concern for some degree of small bowel obstruction. - CXR left pleural effusion - UTI, receiving zosyn - afib/rvr intermittently - ngt to liws - gentle ivf will add kcl - npo - repeat KUB (02/16/17), NO improvement, still with sections of dilated bowels - gen surg following - Case d/w General Surgery, Dr. Lyons, today (02/16/17). - Pt remains a poor surgical candidate - Case discussed with pt's daughter, Clarissa Mcneal, at the bedside. - Pt/daughter have elected for hospice and DNR - Pt/daughter request NGT to be remove with trial of diet prior to discharge back to [facility] with hospice. - If pt NOT able to tolerate diet with NGT out, then will likely place NGT back prior to discharge and send to [facility] - trial of clear liquid diet. - anticipate d/c to clear liquid diet - anticipate d/c 02/18/17 (2) Pleural effusion Status: Acute Plan: see above (3) Enteritis Status: Acute Plan: see above (4) UTI (urinary tract infection) Status: Acute Plan: see above (5) Hyperthyroidism Status: Chronic (6) Hyperlipidemia Status: Acute (7) Stage 3 chronic kidney disease Status: Chronic (8) Systolic CHF, chronic Status: Chronic Plan: stable Matt Henao DO Feb 18, 2017 11:54
[2017-02-18] MEDS ORDERED: METO25TA3 NG (11:56)
[2017-02-18 12:00] VITALS: BP 102/56; PULSE 77; RESP 16; TEMP 97.6; O2SAT 93
--- NOTE | 2017-02-18 14:33 | HHI.PR ---
Subjective Remarks 89 YOWF with Small pl eff, SBO mild abd pain On NC Confused, gets agitated NGT put back due to N,V Daughter at BS Objective Vital Signs Vital Signs Date Time Temp Pulse Resp B/P Pulse Ox O2 Delivery O2 Flow Rate FiO2 02/18/17 12:00 97.6 77 16 102/56 93 02/18/17 08:31 98 Nasal Cannula 2.00 02/18/17 08:00 98.7 77 18 109/54 96 02/18/17 04:00 97.4 73 20 122/56 98 02/18/17 03:40 92 Nasal Cannula 2.00 02/18/17 00:00 97.5 60 20 116/63 94 02/17/17 20:00 98.0 74 20 103/60 97 02/17/17 16:02 95 Nasal Cannula 2.00 02/17/17 16:00 97.1 80 18 114/57 95 I/O 02/17/17 02/17/17 02/17/17 02/18/17 02/18/17 02/18/17 06:59 14:59 22:59 06:59 14:59 22:59 Intake Total 520 ml 240 ml 240 ml 120 ml Output Total 1120 ml Balance 520 ml 240 ml 240 ml -1000 ml Intake Oral 240 ml 240 ml 120 ml IV Total 520 ml Output Urine Total 120 ml Gastric Drainage Total 1000 ml # Voids 1 2 0 0 # Bowel Movements 0 0 0 Result Diagram: 02/15/17 1106 02/15/17 1106 Objective Remarks GENERAL:Frail elderly female, no sob SKIN: Warm and dry. HEAD: Normocephalic. EYES: No scleral icterus. No injection or drainage. NECK: Supple, trachea midline. No JVD or lymphadenopathy. CARDIOVASCULAR: Regular rate and rhythm without murmurs, gallops, or rubs. RESPIRATORY: Breath sounds equal bilaterally. No accessory muscle use. GASTROINTESTINAL: Abdomen soft, non-tender, nondistended. MUSCULOSKELETAL: No cyanosis, or edema. BACK: Nontender without obvious deformity. No CVA tenderness. A/P Assessment and Plan Pleural effusion, small SBO Hyperparathyroidism PLAN: Started liquids Cont Abx IVF Pl effusion small, will monitor. DW Daughter at [facility] DC plans to hospice center Galdino Ornelas MD Feb 18, 2017 14:33
== END 2017-02-18 16:46 | disposition hospice, inpatient (51) | DRG 392 ==
LOC: NEPE 00:01 → NEDA 03:54 → N05A 12:10
PROVIDERS: ADMIT Hospitalist; ATTEND Hospitalist
DX: K52.9 Noninfective gastroenteritis and colitis, unspecified (principal); I47.2 Ventricular tachycardia; K56.60 Unspecified intestinal obstruction; I13.0 Hypertensive heart and chronic kidney disease with heart failure and stage 1 through stage 4 chronic kidney disease, or unspecified chronic kidney disease; N39.0 Urinary tract infection, site not specified; I50.22 Chronic systolic (congestive) heart failure; N18.3 Chronic kidney disease, stage 3 (moderate); I48.91 Unspecified atrial fibrillation; J44.9 Chronic obstructive pulmonary disease, unspecified; M19.90 Unspecified osteoarthritis, unspecified site; Z66 Do not resuscitate; K21.9 Gastro-esophageal reflux disease without esophagitis; M81.0 Age-related osteoporosis without current pathological fracture; G89.29 Other chronic pain; F17.210 Nicotine dependence, cigarettes, uncomplicated; E78.5 Hyperlipidemia, unspecified; E03.9 Hypothyroidism, unspecified; E21.3 Hyperparathyroidism, unspecified
CPT/HCPCS: 71010; 74000; 74020; 74177; 76604; 76937; 80048; 80053; 81001; 83605; 83690; 83735; 83880; 85025; 85610; 85730; 87040; 87077; 87086; 87186; 94640; 94664; 96360; C9113; J2405; J2543; J3480; J7030; J7040; Q9967